=== PATIENT | female | born 1965 | race American Indian/Alaskan Native ===

== ENCOUNTER 2017-02-14 22:36 | Inpatient (IN) | payer MEDICAID ==
--- NOTE | 2017-02-14 22:54 | Emergency Department Report ---
ED General Adult HPI - General Chief complaint: Neuro Symptoms/Deficit Stated complaint: POSS CVA Time Seen by Provider: 02/14/17 22:50 Source: patient, RN notes reviewed, old records reviewed Mode of arrival: Ambulatory Limitations: Physical Limitation - History of Present Illness Initial comments: This is a 51-year-old female. She is previously unknown to me. Past medical history includes bipolar disorder, seizure disorder, left knee effusion, possible stroke in 1997, lupus. Patient is brought to the hospital by EMS for possible stroke. As per EMS verbal report, patient last known normal at 9:50 PM on 02/14/2017. EMS verbally reported that the patient's symptoms were a fascia, and left-sided weakness. The patient was initially somewhat dysarthric, and thought that her symptoms started at 9:50 PM, but was not certain. She also complained of headache, chest pressure, and total body pain. The patient further indicated that she had chronic left lower extremity limited range of motion and pain secondary to multiple surgeries. Of note, patient had a similar presentation in 2013, where she was admitted for possible stroke. At that time, she had an MRI which was negative, MRA which was negative, and an unremarkable echocardiogram. She was further seen by consult to neurology at that time, and as per her discharge summary "it was felt that her symptoms could be related to transient ischemic attack versus Wil's palsy or conversion disorder." The patient is unable to describe exacerbating or relieving factors. -: Gradual Location: left Quality: aching Consistency: constant Improves with: none Worsens with: none Associated Symptoms: confusion, chest pain, headaches, malaise, weakness - Related Data Home Medications Medication Instructions Recorded Confirmed Last Taken Promethazine [Phenergan TAB] 1 tab PO DAILY PRN 07/17/13 02/14/17 Unknown ALPRAZolam [Xanax TAB] 1 mg PO QID 09/14/13 02/14/17 05/05/14 Clopidogrel Bisulfate [Plavix] 75 mg PO DAILY 09/14/13 02/14/17 05/07/14 Cyanocobalamin [Vitamin B-12] 1,000 mcg IM QDAY 10/07/15 02/14/17 Unknown oxyCODONE [Roxicodone] 10 mg PO Q6HR PRN 10/07/15 02/14/17 Unknown traMADol [Ultram] 50 mg PO Q6HR PRN 10/07/15 02/14/17 Unknown Previous Rx's Medication Instructions Recorded Last Taken Type ALBUTEROL NEB's [Proventil 0.083% 2.5 mg INHALATION PRN #1 ml 06/22/14 Unknown Rx NEBS] fentaNYL 100 mg TRANSDERMA Q72HR #5 02/28/15 Unknown Rx patch.td72 Simvastatin [Zocor TAB] 20 mg PO QHS #30 tablet 04/02/15 Unknown Rx amLODIPine [Norvasc] 10 mg PO DAILY #30 tablet 04/02/15 Unknown Rx carBAMazepine [TEGretol] 100 mg PO Q8H #90 tab.chew 04/02/15 Unknown Rx oxyCODONE /ACETAMINOPHEN [Percocet 1 tab PO Q6HR PRN #7 tablet 10/07/15 Unknown Rx 5/325] Butalb/Acetamin/Caff 50-325-40 2 tab PO Q8HR PRN #20 tablet 02/25/16 Unknown Rx [Fioricet] Clopidogrel Bisulfate [Plavix] 75 mg PO QDAY #30 tablet 03/06/16 Unknown Rx Hydrochlorothiazide [HCTZ] 10 mg PO DAILY #30 capsule 03/06/16 Unknown Rx levETIRAcetam [Keppra TAB] 500 mg PO BID #60 tablet 03/06/16 Unknown Rx traMADol [Ultram] 50 mg PO Q4HR PRN #10 tablet 05/27/16 Unknown Rx Allergies Allergy/AdvReac Type Severity Reaction Status Date / Time atorvastatin calcium Allergy Unknown Verified 09/14/13 17:47 [From Lipitor] aspirin AdvReac Unknown Verified 02/26/14 13:53 ED Review of Systems ROS: Stated complaint: POSS CVA Other details as noted in HPI Constitutional: malaise, weakness Eyes: denies: vision change ENT: denies: epistaxis Respiratory: see HPI Cardiovascular: chest pain Gastrointestinal: as per HPI Genitourinary: as per HPI Musculoskeletal: arthralgia, myalgia Skin: denies: lesions Neurological: headache, weakness, numbness, paresthesias, confusion Psychiatric: anxiety ED Past Medical Hx - Past Medical History Previous Medical History?: Yes Hx Hypertension: Yes Hx 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) Hx Heart Attack/AMI: Yes Hx Congestive Heart Failure: Yes (11/2014) Hx GERD: Yes Hx Seizures: Yes Hx Asthma: No Hx COPD: No Additional medical history: Cardiac arrest 4-5 times during surgery 2006, TIA's , Ca L knee,Irregular heart beat - Surgical History Past Surgical History?: Yes Additional Surgical History: 30 surgeries to left lower extremity, hysterectomy, CS - Social History Smoking Status: Never Smoker - Medications Home Medications: Home Medications Medication Instructions Recorded Confirmed Last Taken Type Promethazine [Phenergan TAB] 1 tab PO DAILY PRN 07/17/13 02/14/17 Unknown History ALPRAZolam [Xanax TAB] 1 mg PO QID 09/14/13 02/14/17 05/05/14 History Clopidogrel Bisulfate [Plavix] 75 mg PO DAILY 09/14/13 02/14/17 05/07/14 History ALBUTEROL NEB's [Proventil 0.083% 2.5 mg INHALATION PRN #1 ml 06/22/14 02/14/17 Unknown Rx NEBS] fentaNYL 100 mg TRANSDERMA Q72HR #5 02/28/15 02/14/17 Unknown Rx patch.td72 Simvastatin [Zocor TAB] 20 mg PO QHS #30 tablet 04/02/15 02/14/17 Unknown Rx amLODIPine [Norvasc] 10 mg PO DAILY #30 tablet 04/02/15 02/14/17 Unknown Rx carBAMazepine [TEGretol] 100 mg PO Q8H #90 tab.chew 04/02/15 02/14/17 Unknown Rx Cyanocobalamin [Vitamin B-12] 1,000 mcg IM QDAY 10/07/15 02/14/17 Unknown History oxyCODONE /ACETAMINOPHEN [Percocet 1 tab PO Q6HR PRN #7 tablet 10/07/15 Unknown Rx 5/325] oxyCODONE [Roxicodone] 10 mg PO Q6HR PRN 10/07/15 02/14/17 Unknown History traMADol [Ultram] 50 mg PO Q6HR PRN 10/07/15 02/14/17 Unknown History Butalb/Acetamin/Caff 50-325-40 2 tab PO Q8HR PRN #20 tablet 02/25/16 02/14/17 Unknown Rx [Fioricet] Clopidogrel Bisulfate [Plavix] 75 mg PO QDAY #30 tablet 03/06/16 02/14/17 Unknown Rx Hydrochlorothiazide [HCTZ] 10 mg PO DAILY #30 capsule 03/06/16 02/14/17 Unknown Rx levETIRAcetam [Keppra TAB] 500 mg PO BID #60 tablet 03/06/16 02/14/17 Unknown Rx traMADol [Ultram] 50 mg PO Q4HR PRN #10 tablet 05/27/16 02/14/17 Unknown Rx ED Physical Exam - General Limitations: Physical Limitation General appearance: alert, in distress, obese - Head Head exam: Present: atraumatic, normocephalic - Eye Eye exam: Present: normal appearance, EOMI. Absent: nystagmus - ENT ENT exam: Present: normal exam, normal orophraynx, mucous membranes moist, normal external ear exam - Neck Neck exam: Present: normal inspection, full ROM. Absent: tenderness, meningismus - Respiratory Respiratory exam: Present: normal lung sounds bilaterally. Absent: respiratory distress, wheezes, rales, rhonchi, stridor, chest wall tenderness, accessory muscle use, decreased breath sounds, prolonged expiratory - Cardiovascular Cardiovascular Exam: Present: regular rate, normal rhythm, normal heart sounds. Absent: bradycardia, tachycardia, irregular rhythm, systolic murmur, diastolic murmur, rubs, gallop - GI/Abdominal GI/Abdominal exam: Present: soft, normal bowel sounds. Absent: distended, tenderness, guarding, rebound, rigid, pulsatile mass - Extremities Exam Extremities exam: Present: normal inspection, full ROM, normal capillary refill. Absent: tenderness, pedal edema, joint swelling, calf tenderness - Back Exam Back exam: Present: normal inspection, full ROM. Absent: tenderness, CVA tenderness (R), CVA tenderness (L), muscle spasm, paraspinal tenderness, vertebral tenderness - Neurological Exam Neurological exam: Present: alert, other (patient has 5 out of 5 strength in 4 extremities. Sensation is intact to light touch in 4 extremities. There is no obvious facial droop initially, then during her history, the patient seems to develop a facial droop that waxes and wanes. The patient's speech is initially incomprehensible, and then she speaks slowly, and has some initial stutters. Furthermore, the patient is noted to be moving her bilateral upper extremities without difficulty when asked to take off her shirt.) - Psychiatric Psychiatric exam: Present: normal affect, normal mood - Skin Skin exam: Present: warm, dry, intact, normal color. Absent: rash ED Course Vital Signs 02/14/17 23:37 Temperature 98.8 F Pulse Rate 82 Respiratory 16 Rate Blood Pressure 145/83 [Left] O2 Sat by Pulse 96 Oximetry - Reevaluation(s) Reevaluation #1: 02/15/17 01:02 Differential diagnosis: Pneumonia, urinary tract infection, acute coronary syndrome, stroke, transient ischemic attack, conversion disorder, wil paralysis Assessment and plan: 51-year-old female with reported history of a facial and left-sided weakness. When I evaluate the patient, her left-sided weakness is not obviously appreciable, and she is able to talk to myself and staff members, as well as consulting neurology. At this point in time, the patient does not have an appreciable stroke scale deficits, and she is not appropriate for TPA. The patient is seen and evaluated by the consulting neurology specialist, Dr. Madhu Stern, who independently agrees with the patient is not suitable for TPA. The patient is currently sleeping comfortably with no acute distress. Neurology did recommend a psychiatric consult which has been ordered, they also recommended an MR which can be performed in the morning, and the patient will be given Plavix. She is not homicidal or suicidal and is not required 1013 at this time, and the case is discussed with the Hospital physician, Dr. Pablo, who graciously accepts the patient to her service. ED Medical Decision Making - Lab Data Result diagrams: 02/14/17 22:35 02/14/17 22:35 Vital Signs 02/14/17 23:37 Temperature 98.8 F Pulse Rate 82 Respiratory 16 Rate Blood Pressure 145/83 [Left] O2 Sat by Pulse 96 Oximetry Lab Results 02/14/17 02/14/17 02/14/17 Range/Units 22:35 22:35 22:35 WBC 12.1 H (4.5-11.0) K/mm3 RBC 4.52 (3.65-5.03) M/mm3 Hgb 13.1 (10.1-14.3) gm/dl Hct 39.8 (30.3-42.9) % MCV 88 (79-97) fl MCH 29 (28-32) pg MCHC 33 (30-34) % RDW 15.1 (13.2-15.2) % Plt Count 207 (140-440) K/mm3 Lymph % (Auto) 19.7 (13.4-35.0) % Clarke % (Auto) 4.6 (0.0-7.3) % Eos % (Auto) 6.6 H (0.0-4.3) % Baso % (Auto) 0.2 (0.0-1.8) % Lymph # 2.4 (1.2-5.4) K/mm3 Clarke # 0.6 (0.0-0.8) K/mm3 Eos # 0.8 H (0.0-0.4) K/mm3 Baso # 0.0 (0.0-0.1) K/mm3 Seg Neutrophils % 68.9 (40.0-70.0) % Seg Neutrophils # 8.4 H (1.8-7.7) K/mm3 PT 12.9 (12.2-14.9) Sec. INR 0.98 (0.87-1.13) APTT 27.5 (24.2-36.6) Sec. Thrombin Time (15.1-19.6) Sec. Sodium 144 (137-145) mmol/L Potassium 3.4 L (3.6-5.0) mmol/L Chloride 101.3 (98-107) mmol/L Carbon Dioxide 27 (22-30) mmol/L Anion Gap 19 mmol/L BUN 20 H (7-17) mg/dL Creatinine 0.9 (0.7-1.2) mg/dL Estimated GFR > 60 ml/min BUN/Creatinine Ratio 22.22 % Glucose 163 H (65-100) mg/dL POC Glucose (70-105) Calcium 9.6 (8.4-10.2) mg/dL Troponin T < 0.010 (0.00-0.029) ng/mL 02/14/17 02/14/17 Range/Units 22:35 23:05 WBC (4.5-11.0) K/mm3 RBC (3.65-5.03) M/mm3 Hgb (10.1-14.3) gm/dl Hct (30.3-42.9) % MCV (79-97) fl MCH (28-32) pg MCHC (30-34) % RDW (13.2-15.2) % Plt Count (140-440) K/mm3 Lymph % (Auto) (13.4-35.0) % Clarke % (Auto) (0.0-7.3) % Eos % (Auto) (0.0-4.3) % Baso % (Auto) (0.0-1.8) % Lymph # (1.2-5.4) K/mm3 Clarke # (0.0-0.8) K/mm3 Eos # (0.0-0.4) K/mm3 Baso # (0.0-0.1) K/mm3 Seg Neutrophils % (40.0-70.0) % Seg Neutrophils # (1.8-7.7) K/mm3 PT (12.2-14.9) Sec. INR (0.87-1.13) APTT (24.2-36.6) Sec. Thrombin Time 15.7 (15.1-19.6) Sec. Sodium (137-145) mmol/L Potassium (3.6-5.0) mmol/L Chloride (98-107) mmol/L Carbon Dioxide (22-30) mmol/L Anion Gap mmol/L BUN (7-17) mg/dL Creatinine (0.7-1.2) mg/dL Estimated GFR ml/min BUN/Creatinine Ratio % Glucose (65-100) mg/dL POC Glucose 145 H (70-105) Calcium (8.4-10.2) mg/dL Troponin T (0.00-0.029) ng/mL - EKG Data -: EKG Interpreted by Me EKG shows normal: sinus rhythm Rate: normal - EKG Data 02/15/17 01:04 normal sinus, 94 bpm, normal axis, QTC 450 ms, borderline left ventricular hypertrophy, poor R-wave progression, but morphologically consistent with stemi - Radiology Data Radiology results: report reviewed interpreted by me: X-ray the chest is negative for acute disease Noncontrast CT scan of the brain is negative for acute disease Critical care attestation.: If time is entered above; I have spent that time in minutes in the direct care of this critically ill patient, excluding procedure time. ED Disposition Clinical Impression: Slurred speech Disposition: -09 OP ADMIT IP TO THIS HOSP Is pt being admited?: Yes Condition: Good
[2017-02-14 23:03] LABS: Basophils % (Auto) 0.2 % (0.0-1.8); Eosinophils % (Auto) 6.6 % (0.0-4.3); Hematocrit 39.8 % (30.3-42.9); Hemoglobin 13.1 gm/dl (10.1-14.3); Mean Corpuscular HGB Conc 33 % (30-34); Mean Corpuscular Hemoglobin 29 pg (28-32); Mean Corpuscular Volume 88 fl (79-97); Platelet Count 207 K/mm3 (140-440); Red Blood Count 4.52 M/mm3 (3.65-5.03); Red Cell Distribution Width 15.1 % (13.2-15.2); White Blood Count 12.1 K/mm3 (4.5-11.0)
--- NOTE | 2017-02-14 23:08 | Cat Scan Report ---
FINAL REPORT EXAM: CT HEAD/BRAIN WO CON HISTORY: neuro deficits \T\lt; 6hrs or sx present upon awakening TECHNIQUE: CT imaging acquired through the head without intravenous contrast. Transaxial reformations are provided. PRIORS: 02/24/2016 FINDINGS: The ventricles, cisterns and sulci are normal. No intraparenchymal or extra-axial mass, hemorrhage, or mass effect. Lockwood and white-matter differentiation is within normal limits. Normal spherical shape of the globes. Partially imaged mucosal thickening in the left maxillary sinus. No significant abnormality within the remaining imaged paranasal sinuses or mastoid air cells. No skull or facial fracture visualized. IMPRESSION: No acute intracranial abnormality. Notification initiated via [employer] learning support assistant immediately following the exam.
[2017-02-14 23:14] LABS: Anion Gap 19 mmol/L; BUN/Creatinine Ratio 22.22; Blood Urea Nitrogen 20 mg/dL (7-17); Calcium 9.6 mg/dL (8.4-10.2); Carbon Dioxide 27 mmol/L (22-30); Chloride 101.3 mmol/L (98-107); Glucose 163 mg/dL (65-100); Potassium 3.4 mmol/L (3.6-5.0); Sodium 144 mmol/L (137-145)
[2017-02-14 23:15] LABS: INR 0.98 (0.87-1.13); Partial Thromboplastin Time 27.5 Sec. (24.2-36.6)
[2017-02-15] MEDS ORDERED: PLAVIX PO ONE (01:05)
[2017-02-15 01:12] LABS: Bilirubin,Urine NEG (Negative); Blood,Urine SM (Negative); Ketones,Urine NEG (Negative); Leukocyte Esterase,Urine NEG (Negative); Mucus,Urine FEW /HPF; Nitrite,Urine NEG (Negative); Urobilinogen,Urine < 2.0 mg/dL (<2.0)
[2017-02-15] MEDS ORDERED: REGLAN PO PRN (02:55)
[2017-02-15] MEDS ORDERED: PROVENTIL IH PRN (02:55)
[2017-02-15] MEDS ORDERED: TYLENOL PO PRN (02:55)
[2017-02-15] MEDS ORDERED: DULCOLAX PR PRN (02:55)
[2017-02-15] MEDS ORDERED: SODIUM CHLORIDE FLUSH SYRINGE 10 ML IV PRN (02:55)
[2017-02-15] MEDS ORDERED: MILK OF MAGNESIA PO PRN (02:55)
[2017-02-15] MEDS ORDERED: ZOFRAN IV PRN (02:55)
--- NOTE | 2017-02-15 03:00 | History and Physical Report ---
History of Present Illness Date of examination: 02/15/17 History of present illness: 51-year-old woman with a history of lupus. Hypertension, coronary artery disease, GERD TIA, seizure comes emergency room for a aphasia and right-sided weakness, symptoms are not resolved Patient denies chest pain, palpitation, shortness of breath, cough, abdominal pain, hematochezia, dysuria, frequency, focal weakness, dysarthria, fever chills , polydipsia polyuria, hot or cold intolerance, easy bruisability, or rash or bleeding from mucosal membrane, rhinorrhea, epistaxis, earache, tinnitus, blurry vision, eye discharge, anxiety, depression. Other review of systems negative PAST SURGICAL HISTORY: Hysterectomy, SOCIAL HISTORY: Denies alcohol, tobacco, drugs FAMILY HISTORY: Hypertension Medications and Allergies Allergies Allergy/AdvReac Type Severity Reaction Status Date / Time atorvastatin calcium Allergy Unknown Verified 09/14/13 17:47 [From Lipitor] aspirin AdvReac Unknown Verified 02/26/14 13:53 Home Medications Medication Instructions Recorded Confirmed Last Taken Type Promethazine [Phenergan TAB] 1 tab PO DAILY PRN 07/17/13 02/14/17 Unknown History ALPRAZolam [Xanax TAB] 1 mg PO QID 09/14/13 02/14/17 05/05/14 History Clopidogrel Bisulfate [Plavix] 75 mg PO DAILY 09/14/13 02/14/17 05/07/14 History ALBUTEROL NEB's [Proventil 0.083% 2.5 mg INHALATION PRN #1 ml 06/22/14 02/14/17 Unknown Rx NEBS] fentaNYL 100 mg TRANSDERMA Q72HR #5 02/28/15 02/14/17 Unknown Rx patch.td72 Simvastatin [Zocor TAB] 20 mg PO QHS #30 tablet 04/02/15 02/14/17 Unknown Rx amLODIPine [Norvasc] 10 mg PO DAILY #30 tablet 04/02/15 02/14/17 Unknown Rx carBAMazepine [TEGretol] 100 mg PO Q8H #90 tab.chew 04/02/15 02/14/17 Unknown Rx Cyanocobalamin [Vitamin B-12] 1,000 mcg IM QDAY 10/07/15 02/14/17 Unknown History oxyCODONE /ACETAMINOPHEN [Percocet 1 tab PO Q6HR PRN #7 tablet 10/07/15 Unknown Rx 5/325] oxyCODONE [Roxicodone] 10 mg PO Q6HR PRN 10/07/15 02/14/17 Unknown History traMADol [Ultram] 50 mg PO Q6HR PRN 10/07/15 02/14/17 Unknown History Butalb/Acetamin/Caff 50-325-40 2 tab PO Q8HR PRN #20 tablet 02/25/16 02/14/17 Unknown Rx [Fioricet] Clopidogrel Bisulfate [Plavix] 75 mg PO QDAY #30 tablet 03/06/16 02/14/17 Unknown Rx Hydrochlorothiazide [HCTZ] 10 mg PO DAILY #30 capsule 03/06/16 02/14/17 Unknown Rx levETIRAcetam [Keppra TAB] 500 mg PO BID #60 tablet 03/06/16 02/14/17 Unknown Rx traMADol [Ultram] 50 mg PO Q4HR PRN #10 tablet 05/27/16 02/14/17 Unknown Rx Exam - Physical Exam Narrative exam: Gen. appearance: Patient lying in bed, no apparent distress HEENT: Normocephalic, atraumatic, pupils equally round and reactive to light, extraocular movement intact, and no sclericterus,. No JVD or thyromegaly or nodule,neck supple, no carotid bruit ,mucous membranes moist, no exudate or erythema Heart: S1, S2, regular rate and rhythm Lungs: Clear to auscultation bilaterally, breathing comfortable Abdomen: Positive bowel sounds, nontender, nondistended, no organomegaly Extremity: No edema, cyanosis, clubbing Skin: No rash, nodules, warm, dry Neuro: Oriented 3, cranial nerves II-12 intact, speech is fluent, motor and sensory intact - Constitutional Vitals: Temp Pulse Resp BP Pulse Ox 98.8 F 82 16 145/83 96 02/14/17 23:37 02/14/17 23:37 02/14/17 23:37 02/14/17 23:37 02/14/17 23:37 Results - Labs CBC & Chem 7: 02/14/17 22:35 02/14/17 22:35 Labs: Abnormal lab results 02/14/17 02/14/17 02/14/17 Range/Units 22:35 22:35 23:05 WBC 12.1 H (4.5-11.0) K/mm3 Eos % (Auto) 6.6 H (0.0-4.3) % Eos # 0.8 H (0.0-0.4) K/mm3 Seg Neutrophils # 8.4 H (1.8-7.7) K/mm3 Potassium 3.4 L (3.6-5.0) mmol/L BUN 20 H (7-17) mg/dL Glucose 163 H (65-100) mg/dL POC Glucose 145 H (70-105) - Imaging and Cardiology CT Scan - head: report reviewed Assessment and Plan TIA Hypertension Coronary artery disease Lupus Seizure Admits medicine Obtain MRI of the head, carotid Doppler, echo and Do neurochecks, swallow screen Start Plavix,statin statin, ratio allergic, start DVT prophylaxis Continue appropriate outpatient medications IV hydralazine as needed for blood pressure control
[2017-02-15] MEDS ORDERED: TYLENOL ONE (03:40)
[2017-02-15] MEDS ORDERED: PERCOCET 5/325 PO ONE (04:06)
--- NOTE | 2017-02-15 07:42 | XRay Report ---
Single view chest: Compared to 02/25/16. History: Chest pressure. Findings: Borderline cardiomegaly. Trachea is midline. No consolidation, pneumothorax or pleural effusion. Impression: No acute cardiopulmonary findings.
--- NOTE | 2017-02-15 08:08 | Admit Criteria Form ---
Admission Criteria Documentation: NEUROLOGY GRG Clinical Indications for Admission to Inpatient Care (Place ' X' for any and all applicable criteria): Hospital admission is needed for appropriate care of the patient because of 1 or more of the following: [ ]I. Encephalitis [ ]II. Severe [employer] infections indicated by 1 or more of the following(1)(2)(3) : [ ]a) Intracranial abscess [ ]b) Spinal abscess or myelitis [ ]c) Tuberculous or other nonbacterial, nonviral [employer] infection(8) [ ]III. Vasculitis and 1 or more of the following(14)(15): []a) Altered mental status that is severe or persistent or other acute neurologic change []b) Psychosis []c) Seizure [ ]IV. Status epilepticus or repetitive seizures not controlled with emergent treatment [A] (7)(8) [ ]V. Altered mental status that is severe or persistent [ ]. Transient alteration in consciousness with high-risk etiology; examples include (12)(13): [ ]a) Cardiovascular source [ ]b) Cataplexy [ ]VII. Cerebral aneurysm requiring ANY ONE of the following(14): [ ]a) IV antihypertensives or vasoactive agents [ ]b) Sedation and analgesia for suspected leak [ ]c) Need for external ventricular drainage and cerebral perfusion pressure monitoring [ ]d) Emergent evaluation to determine need for surgical clipping or endovascular coiling by interventional radiology. If surgery is required ( Also use Craniotomy, Supratentorial, for Surgery of Bleeding Intracranial Aneurysm (for bleeding aneurysm) or Craniotomy, Supratentorial (for nonbleeding aneurysm) as appropriate. [ ]VIII. New-onset severe neurologic symptom requiring inpatient care indicated by ANY ONE of the following: [ ]a) Aphasia(15) [ ]b) Weakness (grade 3 or less) [ ]c) Paralysis (eg, hemiplegia) [ ]d) Spasticity(16) [ ]e) Dystonia [ ]e) Ataxia(17) [ ]f) Amnesia(18) [ ]g) Involuntary movements(19) [ ]h) Vertigo [ ] Visual loss [ ]i) Other severe neurologic finding (eg, papilledema, mass effect on imaging, myoclonus not treatable at alternative level of care (eg, observation care) [ ]IX. Guillain-Hopewell syndrome(20) [ ]X. Myasthenia gravis crisis or inpatient monitoring need as indicated by 1 or more of the following(21): [ ]a) Intensive treatment (eg, course of plasmapheresis) with inadequate outpatient situation to monitor patients status [ ]b) Inadequate airway protection [ ]c) Respiratory insufficiency requiring intubation or inpatient. monitoring [ ]d) Progressive dysphagia with failure to thrive [ ]XI. Multiple sclerosis or other acute demyelinating disease requiring inpatient care as indicated by 1 or more of the following (22)(23): [ ]a) Acute severe deterioration requiring inpatient treatment (eg, IV steroids, plasmapheresis, close observation) [ ]b) Acute complication requiring inpatient care (eg, sepsis, severe decubitus, aspiration) [ ]XII.Parkinson disease requiring inpatient care (Also use Optimal Recovery Care Criteria or General Recovery Criteria as appropriate) indicated by 1 or more of the following(25): [ ]a) Infection (eg, aspiration pneumonia) not treatable at alternative level of care [ ]b Dehydration that is severe or persistent [ ]c) Life-threatening agitation or psychotic behavior not treatable on emergency, observation care, or alternative level (eg, residential) basis [ ]d) Severe medication withdrawal effects (eg, freezing, neuroleptic malignant syndrome) not responsive to emergency and observation care treatment ( as appropriate) [ ]e) Other severe manifestation not treatable at alternative level of care [ ]XII. Amyotrophic lateral sclerosis with inpatient care needs as indicated by ANY ONE of the following(26): [ ]a) Acute complications (eg, aspiration pneumonia, sepsis ) requiring inpatient care ( see other optimal Recovery Guideline as appropriate) [ ]b) Dehydration that is severe persistent AND artificial support desired [ ]c) Inadequate airway protection AND artificial support desired [ ]d) Severe ventilatory insufficiency AND artificial support desired [ ]XIII. Myasthenia gravis crisis or inpatient monitoring need as indicated by 1 or more of the following(21): [] a) Inadequate airway protection []b) Respiratory insufficiency requiring intubation or inpatient monitoring []c) Progressive dysphagia with failure to thrive []d) Intensive treatment (e.g., course of plasmapheresis) with inadequate outpatient situation to monitor patients status [ ]XIV. Multiple sclerosis or other acute demyelinating disease requiring inpatient care indicated by 1 or more of the following[C](36)(43)(44)(45)(46): []a) Acute severe deterioration requiring inpatient treatment (eg, IV steroids, plasmapheresis, close observation) []b) Acute complication requiring inpatient care (eg, sepsis, severe decubitus, aspiration) [ ]XV. Intracranial hypertension (e.g., pseudotumor cerebri) requiring inpatient care (e.g., acute visual loss, inadequate oral intake) (47)(48)(49) [ ]XVI. Parkinson disease requiring inpatient care (Also use Optimal Recovery Care Criteria or General Recovery Criteria as appropriate) indicated by 1 or more of the following(25): [] a) Infection (e.g., aspiration pneumonia) not treatable at alternative level of care []b) Volume depletion not responsive to emergency and observation care treatment (as appropriate) []c) Life-threatening agitation or psychotic behavior not treatable on emergency, observation care, or alternative level (e.g., residential) basis []d) Severe medication withdrawal effects (e.g., freezing, neuroleptic malignant syndrome) not responsive to emergency and observation care treatment (as appropriate) []e) Other severe manifestation not treatable at alternative level of care [ ]XVII. Amyotrophic lateral sclerosis with inpatient care needs as indicated by1 or more of the following(42): []a) Acute complications (eg, aspiration pneumonia, sepsis) requiring inpatient care (see other Optimal Recovery Guideline or General Recovery Guideline as appropriate) []b) Dehydration that is severe or persistent AND artificial support desired []c) Inadequate airway protection AND artificial support desired []d) Severe ventilatory insufficiency AND artificial support desired [ ]XVIII. Severe myopathy, neuropathy, or other neuromuscular disease indicated by 1 or more of the following(42)(52)(53)(54): []a ) New-onset severe diffuse weakness (eg, strength 3/5 or less) []b) Severe dysphagia []c) Dyspnea at rest or with minimal exertion (new) []d) Inadequate airway protection []e) Inadequate ventilation indicated by 1 or more of the following : i) Partial pressure of carbon dioxide greater than 44 mm Hg ( 5.9 kPa) (new) ii) Reduced peak expiratory flow rate (new) iii) Vital capacity less than 50% of predicted (less than 15 mL/kg) iv) Peak inspiratory force less negative than -30 cm H2O (- 2942 Pa) [ ]XVII.Complications of congenital or degenerative disease (eg, infection, seizures, dehydration, injury) not responsive to emergency and observation care treatment (as appropriate ) [C](16)(29)(30) [ ]XVIII.Suspected or confirmed nerve or muscle toxic injury, including ANY ONE of the following: [ ]a) Rhabdomyolysis(31) i) Acute renal failure ii) Dehydration that is severe or persistent iii) Altered mental status that is severe or persistent iv) Electrolyte abnormality that remains after emergency or observation level care ( as appropriate) [ ]b) Botulism(32) [ ]c) Other severe toxin-induced sign or symptom [ ]XIX. Neurologic trauma requiring inpatient treatment (medical) indicated by ANY ONE of the following(33)(34): [ ]a) Vital signs or neurologic signs more frequently than every 4 hours [ ]b) Hyperosmolar therapy [ ]c) Respiratory monitoring [ ]d) Intracranial pressure monitoring and treatment [ ]e) Stabilization and immobilization device placement (eg, braces, body jacket) [ ]f) Intubation & mechanical ventilation for airway protection or therapeutic hyperventilation [ ]g) Other treatment or monitoring needed that requires inpatient level of care [ ]XX.Complications of neurologic devices (eg, ventricular shunt, neurostimulator) requiring 1 or more of the following(35)(36): [ ]a) IV antibiotics with monitoring while awaiting culture results [ ]b) Monitoring for hydrocephalus [ X]XXI. Neurology condition symptom, or finding for which emergency and observation care have failed or are not considered appropriate. See General Criteria: Observation Care ISC, General Admission Criteria GRG, or Pediatric General Admission Criteria GRG guideline as appropriate. The original [facility] [employer] content created by [employer] [facility] has been revised. The portions of the content which have been revised are identified through the use of italic text or in bold, and [facility] has neither reviewed nor approved the modified material. All other unmodified content is copyright [facility] Please see references footnoted in the original [facility] edition 2016 Admission Criteria Met: Yes
[2017-02-15] MEDS: PLAVIX PO SCH (11:20)
--- NOTE | 2017-02-15 11:22 | Progress Note ---
Assessment and Plan Assessment and plan: Admitted today by Dr. Vanessa Pablo Patient is a 51-year-old woman with a history of chronic pain syndrome on fentanyl patch, lupus, coronary artery disease, GERD, dyslipidemia, hypertension , seizure disorder and bone cancer s/p 30 surgeries resulting in no left patella who presents with expressive dysarthria and weakness that started 2149 ( it appears she presented out side the window for TPA, see ED documentation pls) . CT of the head without contrast reported as no acute findings, white blood cell count was 12.1 with negative urinalysis/uti and chest x-ray showed no acute findings. Here for stroke workup. Patient asking for oxycodone. -Acute ischemic stroke: Carotid ultrasound unremarkable, echocardiogram and MRI of the brain pending, treat with aspirin and statins check a LDL -Hypokalemia: Replace -BMI 50.2, morbid obesity: Counseling Lifestyle modifications -Leukocytosis most likely reactive: Continue to monitor -Hyperglycemia: Check A1c History Interval history: Patient seen and examined. Follow up on slurred speech and left-sided weakness. Overnight uneventful. No cp, sob, n/v or severe headaches. Imaging, old records, testing, labs, nursing notes reviewed. 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 and a long surgical scar from 30th surgery from bone cancer NEURO: CN 2-12 GROSSLY INTACT except expressive dysarthria, left-sided weakness strength 4 out of 5 PSY: CALM - Constitutional Vitals: Temp Pulse Resp BP Pulse Ox 97.6 F 67 20 142/73 95 02/15/17 08:30 02/15/17 08:30 02/15/17 08:30 02/15/17 08:30 02/15/17 08:30 Results - Labs CBC & Chem 7: 02/14/17 22:35 02/14/17 22:35 Labs: Laboratory Last Values WBC 12.1 K/mm3 (4.5-11.0) H 02/14/17 22:35 RBC 4.52 M/mm3 (3.65-5.03) 02/14/17 22:35 Hgb 13.1 gm/dl (10.1-14.3) 02/14/17 22:35 Hct 39.8 % (30.3-42.9) 02/14/17 22:35 MCV 88 fl (79-97) 02/14/17 22:35 MCH 29 pg (28-32) 02/14/17 22:35 MCHC 33 % (30-34) 02/14/17 22:35 RDW 15.1 % (13.2-15.2) 02/14/17 22:35 Plt Count 207 K/mm3 (140-440) 02/14/17 22:35 Lymph % (Auto) 19.7 % (13.4-35.0) 02/14/17 22:35 [place] % (Auto) 4.6 % (0.0-7.3) 02/14/17 22:35 Eos % (Auto) 6.6 % (0.0-4.3) H 02/14/17 22:35 Baso % (Auto) 0.2 % (0.0-1.8) 02/14/17 22:35 Lymph # 2.4 K/mm3 (1.2-5.4) 02/14/17 22:35 [place] # 0.6 K/mm3 (0.0-0.8) 02/14/17 22:35 Eos # 0.8 K/mm3 (0.0-0.4) H 02/14/17 22:35 Baso # 0.0 K/mm3 (0.0-0.1) 02/14/17 22:35 Seg Neutrophils % 68.9 % (40.0-70.0) 02/14/17 22:35 Seg Neutrophils # 8.4 K/mm3 (1.8-7.7) H 02/14/17 22:35 PT 12.9 Sec. (12.2-14.9) 02/14/17 22:35 INR 0.98 (0.87-1.13) 02/14/17 22:35 APTT 27.5 Sec. (24.2-36.6) 02/14/17 22:35 Thrombin Time 15.7 Sec. (15.1-19.6) 02/14/17 22:35 Sodium 144 mmol/L (137-145) 02/14/17 22:35 Potassium 3.4 mmol/L (3.6-5.0) L 02/14/17 22:35 Chloride 101.3 mmol/L (98-107) 02/14/17 22:35 Carbon Dioxide 27 mmol/L (22-30) 02/14/17 22:35 Anion Gap 19 mmol/L 02/14/17 22:35 BUN 20 mg/dL (7-17) H 02/14/17 22:35 Creatinine 0.9 mg/dL (0.7-1.2) 02/14/17 22:35 Estimated GFR > 60 ml/min 02/14/17 22:35 BUN/Creatinine Ratio 22.22 % 02/14/17 22:35 Glucose 163 mg/dL (65-100) H 02/14/17 22:35 POC Glucose 145 (70-105) H 02/14/17 23:05 Calcium 9.6 mg/dL (8.4-10.2) 02/14/17 22:35 Troponin T < 0.010 ng/mL (0.00-0.029) 02/14/17 22:35 Urine Color Yellow (Yellow) 02/15/17 00:39 Urine Turbidity Clear (Clear) 02/15/17 00:39 Urine pH 5.0 (5.0-7.0) 02/15/17 00:39 Ur Specific [place] 1.030 (1.003-1.030) 02/15/17 00:39 Urine Protein 30 mg/dl mg/dL (Negative) 02/15/17 00:39 Urine Glucose (UA) Neg mg/dL (Negative) 02/15/17 00:39 Urine Ketones Neg mg/dL (Negative) 02/15/17 00:39 Urine Blood Sm (Negative) 02/15/17 00:39 Urine Nitrite Neg (Negative) 02/15/17 00:39 Urine Bilirubin Neg (Negative) 02/15/17 00:39 Urine Urobilinogen < 2.0 mg/dL (<2.0) 02/15/17 00:39 Ur Leukocyte Esterase Neg (Negative) 02/15/17 00:39 Urine WBC (Auto) 1.0 /HPF (0.0-6.0) 02/15/17 00:39 Urine RBC (Auto) 3.0 /HPF (0.0-6.0) 02/15/17 00:39 U Epithel Cells (Auto) < 1.0 /HPF (0-13.0) 02/15/17 00:39 Hyaline Casts 1 /LPF 02/15/17 00:39 Urine Mucus Few /HPF 02/15/17 00:39
[2017-02-15] MEDS: ROXICODONE PO PRN ×2 (16:39→22:23)
[2017-02-15] MEDS: KEPPRA PO SCH (21:30)
[2017-02-15] MEDS: ZOCOR PO SCH (21:30)
[2017-02-15] MEDS: ATIVAN IV PRN (22:30)
[2017-02-16 05:31] LABS: Hematocrit 37.2 % (30.3-42.9); Hemoglobin 12.3 gm/dl (10.1-14.3); Mean Corpuscular HGB Conc 33 % (30-34); Mean Corpuscular Hemoglobin 29 pg (28-32); Mean Corpuscular Volume 87 fl (79-97); Platelet Count 174 K/mm3 (140-440); Red Blood Count 4.26 M/mm3 (3.65-5.03); Red Cell Distribution Width 14.8 % (13.2-15.2); White Blood Count 8.6 K/mm3 (4.5-11.0)
[2017-02-16 05:55] LABS: Anion Gap 17 mmol/L; BUN/Creatinine Ratio 18.88; Blood Urea Nitrogen 17 mg/dL (7-17); Calcium 8.9 mg/dL (8.4-10.2); Carbon Dioxide 28 mmol/L (22-30); Chloride 101.4 mmol/L (98-107); Cholesterol 189 mg/dL (50-199); Glucose 151 mg/dL (65-100); HDL Cholesterol 38 mg/dL (40-59); LDL Cholesterol,Direct 106 mg/dL (50-130); Potassium 3.6 mmol/L (3.6-5.0); Sodium 143 mmol/L (137-145); Triglycerides 228 mg/dL (2-149)
[2017-02-16] MEDS: NORVASC PO SCH (09:44)
[2017-02-16] MEDS: KEPPRA PO SCH ×3 (09:44→22:17)
[2017-02-16] MEDS: PLAVIX PO SCH (09:44)
[2017-02-16] MEDS: ROXICODONE PO PRN ×3 (10:47→22:17)
--- NOTE | 2017-02-16 12:41 | Consultation ---
History of Present Illness - Reason for Consult Consult date: 02/16/17 possible stroke - History of Present Illness 51yo BF seen uin the ED of [facility] yesterday for possible stroke the CT was negative I did note she was on prior plavix therapy the teleneurology consult did not suggest that tPA be used PMH of multiple risk factotrs Lupus - age- prior vascular disease- cancer of the left less blood dyscrasia- severe pain and seizures she teels me the seizures occur when her pain is severe or she has headaches was also " told" she has cancer of the left leg exam deformed lweft and right knees alert good speech Cii-CXII intact 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 Seizure disorder 2. Cancer 3 Cancer related pain 4. Lupus there is old hx of pot stroke I do not find evidence of stroke at this time plan EEG Medications and Allergies Allergies Allergy/AdvReac Type Severity Reaction Status Date / Time atorvastatin calcium Allergy Unknown Verified 09/14/13 17:47 [From Lipitor] aspirin AdvReac Unknown Verified 02/26/14 13:53 Home Medications Medication Instructions Recorded Confirmed Last Taken Type Promethazine [Phenergan TAB] 1 tab PO DAILY PRN 07/17/13 02/14/17 Unknown History ALPRAZolam [Xanax TAB] 1 mg PO QID 09/14/13 02/14/17 05/05/14 History Clopidogrel Bisulfate [Plavix] 75 mg PO DAILY 09/14/13 02/14/17 05/07/14 History ALBUTEROL NEB's [Proventil 0.083% 2.5 mg INHALATION PRN #1 ml 06/22/14 02/14/17 Unknown Rx NEBS] fentaNYL 100 mg TRANSDERMA Q72HR #5 02/28/15 02/14/17 Unknown Rx patch.[id number] Simvastatin [Zocor TAB] 20 mg PO QHS #30 tablet 04/02/15 02/14/17 Unknown Rx amLODIPine [Norvasc] 10 mg PO DAILY #30 tablet 04/02/15 02/14/17 Unknown Rx carBAMazepine [TEGretol] 100 mg PO Q8H #90 tab.chew 04/02/15 02/14/17 Unknown Rx Cyanocobalamin [Vitamin B-12] 1,000 mcg IM QDAY 10/07/15 02/14/17 Unknown History oxyCODONE /ACETAMINOPHEN [Percocet 1 tab PO Q6HR PRN #7 tablet 10/07/15 Unknown Rx 5/325] oxyCODONE [Roxicodone] 10 mg PO Q6HR PRN 10/07/15 02/14/17 Unknown History traMADol [Ultram] 50 mg PO Q6HR PRN 10/07/15 02/14/17 Unknown History Butalb/Acetamin/Caff 50-325-40 2 tab PO Q8HR PRN #20 tablet 02/25/16 02/14/17 Unknown Rx [Fioricet] Clopidogrel Bisulfate [Plavix] 75 mg PO QDAY #30 tablet 03/06/16 02/14/17 Unknown Rx Hydrochlorothiazide [HCTZ] 10 mg PO DAILY #30 capsule 03/06/16 02/14/17 Unknown Rx levETIRAcetam [Keppra TAB] 500 mg PO BID #60 tablet 03/06/16 02/14/17 Unknown Rx traMADol [Ultram] 50 mg PO Q4HR PRN #10 tablet 05/27/16 02/14/17 Unknown Rx Active Meds: Active Medications Acetaminophen (Tylenol) 650 mg PO Q4H PRN PRN Reason: Pain, Mild (1-3) Albuterol (Proventil) 2.5 mg IH Q3HRT PRN PRN Reason: Shortness Of Breath Amlodipine Besylate (Norvasc) 10 mg PO DAILY [facility] Last Admin: 02/16/17 09:44 Dose: 10 mg Bisacodyl (Dulcolax) 10 mg DE QDAY PRN PRN Reason: Constipation Carbamazepine (Tegretol) 100 mg PO Q8H [facility] Last Admin: 02/16/17 00:45 Dose: 100 mg Clopidogrel Bisulfate (Plavix) 75 mg PO QDAY [facility] Last Admin: 02/16/17 09:44 Dose: 75 mg Levetiracetam (Keppra) 500 mg PO BID [facility] Last Admin: 02/16/17 09:44 Dose: 500 mg Lorazepam (Ativan) 1 mg IV Q4H PRN PRN Reason: Seizures Last Admin: 02/15/17 22:30 Dose: 1 mg Magnesium Hydroxide (Milk Of Magnesia) 30 ml PO Q4H PRN PRN Reason: Constipation Metoclopramide HCl (Reglan) 10 mg PO Q6H PRN PRN Reason: Nausea And Vomiting Ondansetron HCl (Zofran) 4 mg IV Q8H PRN PRN Reason: N/V unrelieved by Reglan Oxycodone HCl (Roxicodone) 10 mg PO Q6HR PRN PRN Reason: Pain Last Admin: 02/16/17 10:47 Dose: 10 mg Simvastatin (Zocor) 20 mg PO QHS [facility] Last Admin: 02/15/17 21:30 Dose: 20 mg Sodium Chloride (Sodium Chloride Flush Syringe 10 Ml) 10 ml IV PRN PRN PRN Reason: LINE FLUSH Exam - Constitutional Vitals: Temp Pulse Resp BP Pulse Ox 98.3 F 64 16 139/65 98 02/16/17 10:05 02/16/17 10:05 02/16/17 10:05 02/16/17 10:05 02/16/17 10:05 Results - Labs CBC & Chem 7: 02/16/17 05:04 02/16/17 05:04 Labs: Abnormal lab results 02/15/17 02/16/17 Range/Units 11:38 05:04 Glucose 151 H (65-100) mg/dL Hemoglobin A1c 6.5 H (4-6) % Triglycerides 228 H (2-149) mg/dL HDL Cholesterol 38 L (40-59) mg/dL
--- NOTE | 2017-02-16 13:06 | Progress Note ---
Assessment and Plan Assessment and plan: Patient is a 51-year-old woman with a history of chronic pain syndrome on fentanyl patch, lupus, coronary artery disease, GERD, dyslipidemia, hypertension , seizure disorder and bone cancer s/p 30 surgeries resulting in no left patella who presents with expressive dysarthria and weakness that started 2150 on the day of admission (it appears she presented out side the window for TPA, see ED documentation pls). CT of the head without contrast reported as no acute findings, white blood cell count was 12.1 with negative urinalysis/uti and chest x-ray showed no acute findings. Here for stroke workup. Patient asking for oxycodone. Developed a seizure witnessed by nurse 02/15/2017. -Acute ischemic stroke: Carotid ultrasound unremarkable, MRI of the brain patient refused, treat with aspirin and statins check a LDL -Hypokalemia: Replace -BMI 50.2, morbid obesity: Counseling Lifestyle modifications -Leukocytosis most likely reactive: Continue to monitor -Hyperglycemia: Check A1c -Acute encephalopathy, poa, due to seizures -Patient refused the MRI brain because she was in pain and didnt want it: Counseling done on compliance -Status Epilepticus, poa s/p iv ativan, I increased her Keppra, the Neurologist , Dr. Al has evaulated and recommended EEG (I called him) which I ordered 01/17/17 2-D echo reported as Global left ventricular systolic function is normal , estimated EF is 55-60%, mild concentric left ventricular hypertrophy, trace MR Anticipate discharge tomorrow if no seizures overnight History Interval history: Patient seen and examined. Follow up on slurred speech and left-sided weakness. Overnight eventful, requiring iv Ativan for seizure. No cp, sob, n/v or severe headaches. Imaging, old records, testing, labs, nursing notes reviewed. 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 and a long surgical scar from 30th surgery from bone cancer NEURO: CN 2-12 GROSSLY INTACT except expressive dysarthria, left-sided weakness strength 4 out of 5 PSY: CALM - Constitutional Vitals: Temp Pulse Resp BP Pulse Ox 98.3 F 64 16 139/65 98 02/16/17 10:05 02/16/17 10:05 02/16/17 10:05 02/16/17 10:05 02/16/17 10:05 Results - Labs CBC & Chem 7: 02/16/17 05:04 02/16/17 05:04 Labs: Laboratory Last Values WBC 8.6 K/mm3 (4.5-11.0) 02/16/17 05:04 RBC 4.26 M/mm3 (3.65-5.03) 02/16/17 05:04 Hgb 12.3 gm/dl (10.1-14.3) 02/16/17 05:04 Hct 37.2 % (30.3-42.9) 02/16/17 05:04 MCV 87 fl (79-97) 02/16/17 05:04 MCH 29 pg (28-32) 02/16/17 05:04 MCHC 33 % (30-34) 02/16/17 05:04 RDW 14.8 % (13.2-15.2) 02/16/17 05:04 Plt Count 174 K/mm3 (140-440) 02/16/17 05:04 Lymph % (Auto) 19.7 % (13.4-35.0) 02/14/17 22:35 [place] % (Auto) 4.6 % (0.0-7.3) 02/14/17 22:35 Eos % (Auto) 6.6 % (0.0-4.3) H 02/14/17 22:35 Baso % (Auto) 0.2 % (0.0-1.8) 02/14/17 22:35 Lymph # 2.4 K/mm3 (1.2-5.4) 02/14/17 22:35 [place] # 0.6 K/mm3 (0.0-0.8) 02/14/17 22:35 Eos # 0.8 K/mm3 (0.0-0.4) H 02/14/17 22:35 Baso # 0.0 K/mm3 (0.0-0.1) 02/14/17 22:35 Seg Neutrophils % 68.9 % (40.0-70.0) 02/14/17 22:35 Seg Neutrophils # 8.4 K/mm3 (1.8-7.7) H 02/14/17 22:35 PT 12.9 Sec. (12.2-14.9) 02/14/17 22:35 INR 0.98 (0.87-1.13) 02/14/17 22:35 APTT 27.5 Sec. (24.2-36.6) 02/14/17 22:35 Thrombin Time 15.7 Sec. (15.1-19.6) 02/14/17 22:35 Sodium 143 mmol/L (137-145) 02/16/17 05:04 Potassium 3.6 mmol/L (3.6-5.0) 02/16/17 05:04 Chloride 101.4 mmol/L (98-107) 02/16/17 05:04 Carbon Dioxide 28 mmol/L (22-30) 02/16/17 05:04 Anion Gap 17 mmol/L 02/16/17 05:04 BUN 17 mg/dL (7-17) 02/16/17 05:04 Creatinine 0.9 mg/dL (0.7-1.2) 02/16/17 05:04 Estimated GFR > 60 ml/min 02/16/17 05:04 BUN/Creatinine Ratio 18.88 % 02/16/17 05:04 Glucose 151 mg/dL (65-100) H 02/16/17 05:04 POC Glucose 145 (70-105) H 02/14/17 23:05 Hemoglobin A1c 6.5 % (4-6) H 02/15/17 11:38 Calcium 8.9 mg/dL (8.4-10.2) 02/16/17 05:04 Troponin T < 0.010 ng/mL (0.00-0.029) 02/14/17 22:35 Triglycerides 228 mg/dL (2-149) H 02/16/17 05:04 Cholesterol 189 mg/dL (50-199) 02/16/17 05:04 LDL Cholesterol Direct 106 mg/dL (50-130) 02/16/17 05:04 HDL Cholesterol 38 mg/dL (40-59) L 02/16/17 05:04 Cholesterol/HDL Ratio 4.97 % 02/16/17 05:04 Urine Color Yellow (Yellow) 02/15/17 00:39 Urine Turbidity Clear (Clear) 02/15/17 00:39 Urine pH 5.0 (5.0-7.0) 02/15/17 00:39 Ur Specific [place] 1.030 (1.003-1.030) 02/15/17 00:39 Urine Protein 30 mg/dl mg/dL (Negative) 02/15/17 00:39 Urine Glucose (UA) Neg mg/dL (Negative) 02/15/17 00:39 Urine Ketones Neg mg/dL (Negative) 02/15/17 00:39 Urine Blood Sm (Negative) 02/15/17 00:39 Urine Nitrite Neg (Negative) 02/15/17 00:39 Urine Bilirubin Neg (Negative) 02/15/17 00:39 Urine Urobilinogen < 2.0 mg/dL (<2.0) 02/15/17 00:39 Ur Leukocyte Esterase Neg (Negative) 02/15/17 00:39 Urine WBC (Auto) 1.0 /HPF (0.0-6.0) 02/15/17 00:39 Urine RBC (Auto) 3.0 /HPF (0.0-6.0) 02/15/17 00:39 U Epithel Cells (Auto) < 1.0 /HPF (0-13.0) 02/15/17 00:39 Hyaline Casts 1 /LPF 02/15/17 00:39 Urine Mucus Few /HPF 02/15/17 00:39
[2017-02-16] MEDS: ATIVAN IV PRN ×2 (18:41→19:18)
[2017-02-16] MEDS: ZOCOR PO SCH (22:17)
[2017-02-17] MEDS: ROXICODONE PO PRN ×2 (05:03→11:42)
[2017-02-17 08:18] LABS: Hematocrit 36.1 % (30.3-42.9); Hemoglobin 11.8 gm/dl (10.1-14.3); Mean Corpuscular HGB Conc 33 % (30-34); Mean Corpuscular Hemoglobin 28 pg (28-32); Mean Corpuscular Volume 87 fl (79-97); Platelet Count 173 K/mm3 (140-440); Red Blood Count 4.18 M/mm3 (3.65-5.03); Red Cell Distribution Width 14.8 % (13.2-15.2); White Blood Count 8.5 K/mm3 (4.5-11.0)
[2017-02-17 08:23] LABS: Anion Gap 17 mmol/L; BUN/Creatinine Ratio 23.33; Blood Urea Nitrogen 14 mg/dL (7-17); Calcium 8.7 mg/dL (8.4-10.2); Carbon Dioxide 25 mmol/L (22-30); Glucose 120 mg/dL (65-100); Potassium 3.7 mmol/L (3.6-5.0); Sodium 142 mmol/L (137-145)
[2017-02-17] MEDS: NORVASC PO SCH (10:00)
[2017-02-17] MEDS: PLAVIX PO SCH (10:43)
[2017-02-17] MEDS: KEPPRA PO SCH (10:44)
[2017-02-17 12:19] VITALS: BP 125/88
--- NOTE | 2017-02-17 12:36 | Discharge Summary ---
Providers - Providers Date of Admission: 02/15/17 02:55 Date of discharge: 02/17/17 Attending physician: CHER PADILLA 02/15/17 15:41 Consult to Physician [CONS] Routine Consulting Provider: BENJAMIN AL Reason For Exam: intractable seizure Place consult to:: Servando CABELLO Notified:: a service Phone number called:: [phone] Was contact made?: Yes If yes, spoke with:: grey Time called:: 16:45 02/16/17 10:17 Physical Therapy Evaluation and Treat [CONS] Routine Comment: Reason For Exam: TIA/CVA Primary care physician: RECONC[facility] SPECIALIST Hospitalization Condition: Stable Hospital course: Patient is a 51-year-old woman with a history of chronic pain syndrome on fentanyl patch, lupus, coronary artery disease, GERD, dyslipidemia, hypertension , seizure disorder and bone cancer s/p 30 surgeries resulting in no left patella who presents with expressive dysarthria and weakness that started 2150 on the day of admission (it appears she presented out side the window for TPA, see ED documentation pls). CT of the head without contrast reported as no acute findings, white blood cell count was 12.1 with negative urinalysis/uti and chest x-ray showed no acute findings. Here for stroke workup. Patient asking for oxycodone. Developed a seizure witnessed by nurse 02/15/2017. -Acute ischemic stroke: Carotid ultrasound unremarkable, MRI of the brain patient refused, treat with aspirin and statins check a LDL -Hypokalemia: Replace -BMI 50.2, morbid obesity: Counseling Lifestyle modifications -Leukocytosis most likely reactive: Continue to monitor -Hyperglycemia: Checked A1c 6.5 -Acute encephalopathy, poa, due to seizures -Patient refused the MRI brain because she was in pain and didnt want it: Counseling done on compliance -Status Epilepticus, poa s/p iv ativan, I increased her Keppra, the Neurologist , Dr. Al has evaulated and recommended EEG (I called him) which I ordered, he will follow up 01/17/17 2-D echo reported as Global left ventricular systolic function is normal , estimated EF is 55-60%, mild concentric left ventricular hypertrophy, trace MR Anticipate discharge tomorrow if no seizures overnight==>no seizure overnight, she refused seizure medication tegretal, states she only takes keppra 1000mg once a day. Her main concern is getting script for oxycodone, she wants the 15mg dose. She needs all her medications refilled. Counselled on noncompliance Disposition: DC-01 TO HOME OR SELFCARE Time spent for discharge: 35 minutes Core Measure Documentation - Palliative Care Palliative Care/ Comfort Measures: Not Applicable - Core Measures Any of the following diagnoses?: none - VTE Discharge Requirements Deep Vein Thrombosis/Pulmonary Embolism Present on Admission: No Has pt received <5 days of overlap therapy or INR<2.0: No Anticoagulant overlap therapy prescribed at discharge: No Contraindication No Overlap Therapy order at DC: Not Indicated Exam - Physical Exam Narrative exam: GEN: Morbidly obese BMI 50.2, NAD, AWAKE, ALERT, ORIENTATED x 3 CVS: RRR, NORMAL S1S2 LUNGS/CHEST: CTA B, NORMAL CHEST EXPANSION B, GOOD AIR ENTRY B ABD: SOFT, NTND, GBS, NO REBOUND OR GUARDING EXT/SKIN: NO SIGNIFICANT EDEMA OR RASH MSK: Patient has no left knee and a long surgical scar from 30th surgery from bone cancer NEURO: CN 2-12 GROSSLY INTACT except expressive dysarthria, left-sided weakness strength 4 out of 5 PSY: CALM - Constitutional Vitals: Temp Pulse Resp BP Pulse Ox 98.1 F 64 20 125/88 98 02/17/17 12:18 02/17/17 12:18 02/17/17 12:18 02/17/17 12:18 02/17/17 12:18 Plan Activity: other (no strenous activites until cleared by PCP. ) Diet: low carbohydrate (because you are borderline diabetic mellitus) Special Instructions: record daily BP diary, record blood sugar diary Follow up with: PRIMARY CARE, [Primary Care Provider] - 3-5 Days BENJAMIN AL MD [Staff Physician] - 7 Days Prescriptions: Simvastatin [Zocor TAB] 20 mg PO QHS #30 tablet ALBUTEROL NEB's [Proventil 0.083% NEBS] 2.5 mg IH Q3HRT PRN #30 nebu PRN Reason: Shortness Of Breath amLODIPine [Norvasc] 10 mg PO DAILY #30 tablet Clopidogrel [Plavix] 75 mg PO QDAY #30 tablet levETIRAcetam [Keppra TAB] 1,000 mg PO BID #60 tablet Oxycodone HCl [Oxycodone HCl ER] 15 mg PO Q12H PRN #30 tab.er.12h PRN Reason: Pain , Severe (7-10)
--- NOTE | 2017-02-21 10:21 | Vascular Lab Report ---
CAROTID DUPLEX STUDY: RIGHT PSVEDV CCA PROX: [id number] CCA DIST: 6621 ICA PROX: 6220 ICA MID: 8734 ICA DIST:[id number] ECA: 45 VERT: 43 15 LEFT PSVEDV CCA PROX:[id number] CCA DIST: 6118 ICA PROX: 5917 ICA MID: 7923 ICA DIST: 7918 ECA: 34 VERT: 50 16 REASON FOR EXAM: Stroke. COMMENTS ON THE RIGHT: Doppler frequency analysis is consistent with 16 to 49 percent diameter reduction of the internal carotid artery. Minimal amount of plaque is seen. The common carotid artery is patent. The external carotid artery is patent. The vertebral artery has antegrade flow. COMMENTS ON THE LEFT: Doppler frequency analysis is consistent with 16 to 49 percent diameter reduction of the internal carotid artery. Minimal amount of plaque is seen. The common carotid artery is patent. The external carotid artery is patent. The vertebral artery has antegrade flow. IMPRESSION: Less than 50% diameter reduction in the internal carotid arteries bilaterally. Consider repeat carotid artery duplex in 12 months.
== END 2017-02-17 15:15 | disposition home or self-care (01) | DRG 64 ==
LOC: ED 22:36 → 4A 02-15 02:55
PROVIDERS: ADMIT Internal Medicine; ATTEND Internal Medicine
DX: I63.9 Cerebral infarction, unspecified (principal); G93.40 Encephalopathy, unspecified; I25.10 Atherosclerotic heart disease of native coronary artery without angina pectoris; M32.9 Systemic lupus erythematosus, unspecified; E66.01 Morbid (severe) obesity due to excess calories; F31.9 Bipolar disorder, unspecified; K21.9 Gastro-esophageal reflux disease without esophagitis; I11.0 Hypertensive heart disease with heart failure; I50.9 Heart failure, unspecified; E87.6 Hypokalemia; R73.9 Hyperglycemia, unspecified; C41.9 Malignant neoplasm of bone and articular cartilage, unspecified; G89.4 Chronic pain syndrome; G40.901 Epilepsy, unspecified, not intractable, with status epilepticus; Z68.43 Body mass index [BMI] 50.0-59.9, adult; Z88.6 Allergy status to analgesic agent; Z88.8 Allergy status to other drugs, medicaments and biological substances; Z90.710 Acquired absence of both cervix and uterus; Z82.49 Family history of ischemic heart disease and other diseases of the circulatory system; Z98.891 History of uterine scar from previous surgery; Z53.8 Procedure and treatment not carried out for other reasons
CPT/HCPCS: 36415; 70450; 71010; 80048; 80061; 81001; 82962; 83036; 84484; 85025; 85027; 85610; 85670; 85730; 93005; 93010; 93306; 93880; 95819; 99285; J2060

== ENCOUNTER 2017-05-07 20:50 | Emergency (ER) | payer MEDICAID ==
[2017-05-07 22:27] LABS: Basophils % (Auto) 0.6 % (0.0-1.8); Eosinophils % (Auto) 5.6 % (0.0-4.3); Hematocrit 39.2 % (30.3-42.9); Hemoglobin 12.7 gm/dl (10.1-14.3); Mean Corpuscular HGB Conc 32 % (30-34); Mean Corpuscular Hemoglobin 28 pg (28-32); Mean Corpuscular Volume 86 fl (79-97); Platelet Count 230 K/mm3 (140-440); Red Blood Count 4.54 M/mm3 (3.65-5.03); Red Cell Distribution Width 15.8 % (13.2-15.2); White Blood Count 11.4 K/mm3 (4.5-11.0)
[2017-05-07 22:42] LABS: Alanine Aminotransferase 24 units/L (7-56); Albumin 4.3 g/dL (3.9-5); Albumin/Globulin Ratio 1.4 %; Alkaline Phosphatase 66 units/L (35-129); Anion Gap 19 mmol/L; BUN/Creatinine Ratio 17.14; Blood Urea Nitrogen 12 mg/dL (7-17); Calcium 9.9 mg/dL (8.4-10.2); Carbon Dioxide 28 mmol/L (22-30); Glucose 137 mg/dL (65-100); Potassium 3.7 mmol/L (3.6-5.0); Sodium 144 mmol/L (137-145); Total Protein 7.3 g/dL (6.3-8.2)
[2017-05-08 03:49] LABS: Bilirubin,Urine NEG (Negative); Blood,Urine NEG (Negative); Ketones,Urine NEG (Negative); Leukocyte Esterase,Urine NEG (Negative); Mucus,Urine FEW /HPF; Nitrite,Urine NEG (Negative); Protein,Urine <15 mg/dL mg/dL (Negative); RBC,Urine < 1.0 /HPF (0.0-6.0); Urobilinogen,Urine < 2.0 mg/dL (<2.0); WBC,Urine < 1.0 /HPF (0.0-6.0)
[2017-05-08] MEDS ORDERED: MORPHINE IV ONE (07:26)
--- NOTE | 2017-05-08 07:35 | Emergency Department Report ---
HPI - General Chief Complaint: Extremity Problem,Nontraumatic Time Seen by Provider: 05/08/17 07:15 - HPI HPI: This is a 52-year-old -[place] female presents to the emergency department with complaint of a one-day history of bilateral lower extremity pain , worse on the left. The patient has a history of lupus but she also has a history of bone cancer in that left lower extremity. She has had many surgeries to the left leg secondary to the cancer and now has a fusion of the knee and she is unable to bend the knee at baseline now. She also has a past medical history of CHF, CVA with some left-sided deficit, coronary artery disease with CA, hypertension, irregular heartbeat. She has a primary care physician without currently remember their name. She says that she takes Roxicodone for her symptoms usually but is out of that medication. No recent travel or sick contacts at home. She denies any fever, chest pain, shortness of breath. ED Past Medical Hx - Past Medical History Hx Hypertension: Yes Hx 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) Hx Heart Attack/AMI: Yes Hx Congestive Heart Failure: Yes (11/2014) Hx Diabetes: No Hx GERD: Yes Hx Seizures: Yes Hx Asthma: No Hx COPD: No Additional medical history: Cardiac arrest 4-5 times during surgery 2006, TIA's , Ca L knee,Irregular heart beat, Lupus - Surgical History Additional Surgical History: 30 surgeries to left lower extremity, hysterectomy, CS - Social History Smoking Status: Current Every Day Smoker Substance Use Type: None - Medications Home Medications: Home Medications Medication Instructions Recorded Confirmed Last Taken Type Clopidogrel [Plavix] 75 mg PO QDAY #30 tablet 02/17/17 04/06/17 04/05/17 Rx amLODIPine [Norvasc] 10 mg PO DAILY #30 tablet 02/17/17 04/06/17 04/06/17 Rx ALPRAZolam [Xanax TAB] 1 mg PO QID PRN 04/06/17 04/06/17 04/06/17 History Hydrochlorothiazide [HCTZ] 25 mg PO QDAY 04/06/17 04/06/17 04/06/17 History Potassium Chloride [K-Dur] 10 meq PO BID 04/06/17 04/06/17 04/06/17 History Pregabalin [Lyrica] 75 mg PO BID 04/06/17 04/06/17 04/06/17 History Quetiapine Fumarate [Seroquel] 300 mg PO HS 04/06/17 04/06/17 04/05/17 History risperiDONE [RisperDAL] 4 mg PO BID 04/06/17 04/06/17 04/06/17 History Simvastatin [Zocor TAB] 40 mg PO QHS tablet 04/09/17 Unknown Rx lamoTRIgine [LaMICtal] 150 mg PO BID #60 tablet 04/09/17 Unknown Rx levETIRAcetam [Keppra TAB] 500 mg PO BID #60 tablet 04/09/17 Unknown Rx oxyCODONE /ACETAMINOPHEN [Percocet 1 tab PO Q6HR PRN #10 tablet 05/08/17 Unknown Rx 5/325] ED Review of Systems ROS: Stated complaint: SWELLIN IN L & R LEGS, LUPUS Other details as noted in HPI Comment: All other systems reviewed and negative Constitutional: denies: chills, fever Eyes: denies: eye pain, eye discharge, vision change ENT: denies: ear pain, throat pain Respiratory: denies: cough, shortness of breath, wheezing Cardiovascular: denies: chest pain, palpitations Gastrointestinal: denies: abdominal pain, nausea, diarrhea Genitourinary: denies: urgency, dysuria, discharge Musculoskeletal: arthralgia, myalgia Skin: denies: rash, lesions Neurological: denies: headache, weakness, paresthesias Physical Exam - Physical Exam Vital Signs: Vital Signs 05/07/17 05/08/17 05/08/17 21:59 04:31 06:39 Temperature 98 F 97.9 F 97.3 F L Pulse Rate 91 H 77 73 Respiratory 16 20 18 Rate Blood Pressure 130/95 139/73 Blood Pressure 147/88 [Left] O2 Sat by Pulse 97 100 100 Oximetry Physical Exam: GENERAL: The patient is well-developed well-nourished. HENT: Normocephalic. Atraumatic. Patient has moist mucous membranes. EYES: Extraocular motions are intact. Pupils equal reactive to light bilaterally. NECK: Supple. Trachea is midline. CHEST/LUNGS: Clear to auscultation. There is no respiratory distress noted. HEART/CARDIOVASCULAR: Regular. There is no tachycardia. There is no gallop rub or murmur. ABDOMEN: Abdomen is soft, nontender. Patient has normal bowel sounds. There is no abdominal distention. Morbidly obese habitus. SKIN: There is some mild nonpitting swelling of the bilateral lower extremity. NEURO: The patient is awake, alert, and oriented. The patient is cooperative. The patient has no focal neurologic deficits. The patient has normal speech and gait. MUSCULOSKELETAL: There is some tenderness to palpation to the bilateral lower extremities from the knees distally but the pain appears to be worse even without palpation. There is a chronic effusion of the left knee and therefore there is no flexion. ED Course Vital Signs 05/07/17 05/08/17 05/08/17 21:59 04:31 06:39 Temperature 98 F 97.9 F 97.3 F L Pulse Rate 91 H 77 73 Respiratory 16 20 18 Rate Blood Pressure 130/95 139/73 Blood Pressure 147/88 [Left] O2 Sat by Pulse 97 100 100 Oximetry ED Medical Decision Making - Lab Data Result diagrams: 05/07/17 22:10 05/07/17 22:10 - Radiology Data Radiology results: report reviewed Bilateral lower extremity venous Dopplers are negative for DVT. CT LOWER EXTREMITY RIGHT WITH CONTRAST CT LOWER EXTREMITY LEFT WITH CONTRAST HISTORY: Bilateral lower extremity pain, history of left lower extremity bone cancer. TECHNIQUE: Helical CT was obtained filling of the contrast from the knees to the ankles. Sagittal and coronal reformatted images. COMPARISON: No relevant comparison. FINDINGS: The visualized right lower extremity is unremarkable. There is normal bone mineralization. No evidence for fracture, periostitis, bone lesion or abnormal enhancement. Normal soft tissues. The visualized left lower extremity demonstrates previous surgical changes. There appears to have been an intramedullary jerri within the distal left femur and left tibia which has been removed. The tract of the jerri is still visualized. Bony fusion of the left knee joint is identified. The left patella and extensor complex have been surgically removed. There is no evidence for acute fracture, periostitis, bone lesion or abnormal enhancement. The soft tissues are unremarkable. IMPRESSION: Postsurgical changes in the left lower extremity as outlined above. No acute process, bone lesion or abnormal enhancement is appreciated on today's exam. - Medical Decision Making 52-year-old female presents with lower extremity pain with a history of lupus and a history of bone cancer. Vitals signs stable throughout her ED course. Labs are unremarkable. Bilateral lateral lower venous Dopplers are negative for DVT. Lower extremity CT with IV contrast was also done to rule out infection, malignancy, and it resulted basically has a negative examination. She was given a dose of pain medication. She was reevaluated multiple times about multiple hours and has remained stable. She will follow-up with her primary care physician and will return to the ER if any worsening of her symptoms or any acute distress. Critical Care Time: No Critical care attestation.: If time is entered above; I have spent that time in minutes in the direct care of this critically ill patient, excluding procedure time. ED Disposition Clinical Impression: Bilateral leg pain Lupus Qualifiers: Lupus erythematosus form: unspecified Qualified Code(s): L93.0 - Discoid lupus erythematosus Disposition: TO HOME OR SELFCARE Is pt being admited?: No Condition: Stable Instructions: Arthralgia (ED) Additional Instructions: Please follow-up with your primary care physician in the next 2 days. Return to the emergency Department with any worsening of your symptoms or any acute distress. You have been prescribed a medication that is sedating and therefore should not be taken prior to driving, working, and responsible for children and in no way should be mixed with alcohol of any quantity. Prescriptions: oxyCODONE /ACETAMINOPHEN [Percocet 5/325] 1 tab PO Q6HR PRN #10 tablet PRN Reason: Pain Referrals: PRIMARY CARE, [Primary Care Provider] - 3-5 Days Time of Disposition: 11:05
[2017-05-08] MEDS ORDERED: NACL ONE (07:49)
--- NOTE | 2017-05-08 10:32 | Cat Scan Report ---
CT LOWER EXTREMITY RIGHT WITH CONTRAST CT LOWER EXTREMITY LEFT WITH CONTRAST HISTORY: Bilateral lower extremity pain, history of left lower extremity bone cancer. TECHNIQUE: Helical CT was obtained filling of the contrast from the knees to the ankles. Sagittal and coronal reformatted images. COMPARISON: No relevant comparison. FINDINGS: The visualized right lower extremity is unremarkable. There is normal bone mineralization. No evidence for fracture, periostitis, bone lesion or abnormal enhancement. Normal soft tissues. The visualized left lower extremity demonstrates previous surgical changes. There appears to have been an intramedullary jerri within the distal left femur and left tibia which has been removed. The tract of the jerri is still visualized. Bony fusion of the left knee joint is identified. The left patella and extensor complex have been surgically removed. There is no evidence for acute fracture, periostitis, bone lesion or abnormal enhancement. The soft tissues are unremarkable. IMPRESSION: Postsurgical changes in the left lower extremity as outlined above. No acute process, bone lesion or abnormal enhancement is appreciated on today's exam.
[2017-05-08 10:47] VITALS: BP 160/88
--- NOTE | 2017-05-09 07:44 | Vascular Lab Report ---
LOWER EXTREMITY VENOUS DUPLEX: REASON FOR EXAM: Pain of the lower extremities. COMMENTS ON THE RIGHT: All veins visualized are freely compressible without evidence of internal echogenicity. Flow is spontaneous and phasic throughout. COMMENTS ON THE LEFT: All veins visualized are freely compressible without evidence of internal echogenicity. Flow is spontaneous and phasic throughout. IMPRESSION: No evidence of acute or chronic deep venous thrombosis in either lower extremity.
== END 2017-05-08 11:17 | disposition home or self-care (01) ==
LOC: ED 20:50
DX: L93.0 Discoid lupus erythematosus (principal); M79.605 Pain in left leg; M79.604 Pain in right leg; Z86.73 Personal history of transient ischemic attack (TIA), and cerebral infarction without residual deficits; I10 Essential (primary) hypertension; I50.9 Heart failure, unspecified; K21.9 Gastro-esophageal reflux disease without esophagitis; R53.1 Weakness; F17.200 Nicotine dependence, unspecified, uncomplicated
CPT/HCPCS: 36415; 73701; 80053; 81001; 82550; 85025; 93970; 96374; 99284; J2270; Q9967

== ENCOUNTER 2017-06-11 21:46 | Emergency (ER) | payer MEDICAID ==
[2017-06-11 22:11] VITALS: BP 142/82
[2017-06-11 22:46] LABS: Basophils % (Auto) 0.2 % (0.0-1.8); Hematocrit 40.3 % (30.3-42.9); Hemoglobin 13.7 gm/dl (10.1-14.3); Mean Corpuscular HGB Conc 34 % (30-34); Mean Corpuscular Hemoglobin 29 pg (28-32); Mean Corpuscular Volume 84 fl (79-97); Platelet Count 219 K/mm3 (140-440); Red Blood Count 4.79 M/mm3 (3.65-5.03); White Blood Count 13.2 K/mm3 (4.5-11.0)
[2017-06-11 22:59] LABS: Anion Gap 17 mmol/L; BUN/Creatinine Ratio 16; Blood Urea Nitrogen 16 mg/dL (7-17); Calcium 9.7 mg/dL (8.4-10.2); Carbon Dioxide 31 mmol/L (22-30); Chloride 96.3 mmol/L (98-107); Glucose 139 mg/dL (65-100); Potassium 3.7 mmol/L (3.6-5.0); Sodium 141 mmol/L (137-145)
== END 2017-06-11 22:35 | disposition left against medical advice (07) ==
LOC: ED 21:46
DX: R07.9 Chest pain, unspecified (principal); Z53.21 Procedure and treatment not carried out due to patient leaving prior to being seen by health care provider
CPT/HCPCS: 36415; 80048; 84484; 85025; 93005; 93010

== ENCOUNTER 2017-07-11 19:11 | Inpatient (IN) | payer MEDICAID ==
[2017-07-11] MEDS ORDERED: ATIVAN ONE (19:27)
[2017-07-11] MEDS ORDERED: ATIVAN IV ONE (19:28)
[2017-07-11 20:07] LABS: Basophils % (Auto) 0.5 % (0.0-1.8); Eosinophils % (Auto) 6.8 % (0.0-4.3); Hematocrit 40.1 % (30.3-42.9); Hemoglobin 13.2 gm/dl (10.1-14.3); Mean Corpuscular HGB Conc 33 % (30-34); Mean Corpuscular Hemoglobin 28 pg (28-32); Mean Corpuscular Volume 86 fl (79-97); Platelet Count 207 K/mm3 (140-440); Red Blood Count 4.69 M/mm3 (3.65-5.03); Red Cell Distribution Width 15.2 % (13.2-15.2); White Blood Count 10.6 K/mm3 (4.5-11.0)
--- NOTE | 2017-07-11 20:14 | Cat Scan Report ---
FINAL REPORT PROCEDURE: CT HEAD/BRAIN WO CON TECHNIQUE: Computerized tomography of the head was performed without contrast material. HISTORY: Possible transient ischemic attack. Left-sided deficits. COMPARISON: Prior CT scan of the brain 04/06/2017 FINDINGS: Brain: Brain density appears normal. No evidence of intracranial hemorrhage. No parenchymal hemorrhage, mass lesions or mass effect are seen. No abnormal extraxial fluid collects or masses are seen. Ventricles: Ventricles are normal size and are midline. Bone Windows: No evidence of skull fracture. Paranasal sinuses: There is mild mucosal thickening in the right maxillary sinus. There is a small nodular density posterior inferiorly in the left maxillary sinus suggesting a small polyp or mucous retention cyst. Small nodular density also seen anteriorly in the right side of the sphenoid sinus again suggesting a small polyp or mucous retention cyst. The paranasal sinuses otherwise appear clear. Mastoid air cells: Clear IMPRESSION: Negative unenhanced CT of the brain. If further evaluation is clinically indicated MRI of the brain could be obtained for further evaluation. Minimal paranasal sinus disease as described.
[2017-07-11 20:23] LABS: INR 0.85 (0.87-1.13)
[2017-07-11 20:24] LABS: Partial Thromboplastin Time 29.8 Sec. (24.2-36.6)
[2017-07-11 20:29] LABS: Anion Gap 17 mmol/L; BUN/Creatinine Ratio 23; Blood Urea Nitrogen 16 mg/dL (7-17); Calcium 9.3 mg/dL (8.4-10.2); Carbon Dioxide 26 mmol/L (22-30); Chloride 95.5 mmol/L (98-107); Glucose 114 mg/dL (65-100); Potassium 3.5 mmol/L (3.6-5.0); Sodium 135 mmol/L (137-145)
[2017-07-11] MEDS ORDERED: MORPHINE IV ONE (21:20)
--- NOTE | 2017-07-11 22:00 | Emergency Department Report ---
ED Neuro Deficit HPI - General Chief Complaint: Neuro Symptoms/Deficit Stated Complaint: NEURO SYMPTOMS Time Seen by Provider: 07/11/17 19:43 Source: patient, EMS Mode of arrival: Stretcher Limitations: Physical Limitation - History of Present Illness Initial Comments: Patient has history of TIAs and seizures. She reports that her seizures started after a . She has reportedly left sided deficits at baseline but around 6:25 pm she has sudden facial drooping and increased loss of function of her left side arm and legs. She also had increased left leg pain. She was brought here. EMS noted that on the scene she was responsive and able to talk. They did not administer any meds. When she arrived and was transferred to the bed she started a jerking action of her left arm and again became non- responsive. During this time I saw the patient and she had pin-point pupils minimally reactive. She was having reduced left arm jerking and after 2 minutes started moving her eyes what appeared to be in response to verbal stimuli from me. She was sent straight to CT. On return from CT she was able to utter single words and piece them together which communicate the seizures starting after her and to communicate pain in her left leg. -: Sudden Location: speech, left face, left arm, left leg Presenting Symptoms: Present: Weak/Paralyzed One Side, Facial Droop/Numbness, Unable to Speak Clearly History of same: Yes Place: home Severity: severe Quality: burning Improves With: time Worsens With: none - Related Data Home Medications: Home Medications Medication Instructions Recorded Confirmed Last Taken ALPRAZolam [Xanax TAB] 1 mg PO QID PRN 04/06/17 04/06/17 04/06/17 Hydrochlorothiazide [HCTZ] 25 mg PO QDAY 04/06/17 04/06/17 04/06/17 Potassium Chloride [K-Dur] 10 meq PO BID 04/06/17 04/06/17 04/06/17 Pregabalin [Lyrica] 75 mg PO BID 04/06/17 04/06/17 04/06/17 Quetiapine Fumarate [Seroquel] 300 mg PO HS 04/06/17 04/06/17 04/05/17 risperiDONE [RisperDAL] 4 mg PO BID 04/06/17 04/06/17 04/06/17 Oxycodone HCl [Roxicodone] 30 mg PO TID 07/11/17 07/11/17 Unknown fentaNYL [Fentanyl] 1 patch TRANSDERMA Q72H 07/11/17 07/11/17 Unknown Previous Rx's Medication Instructions Recorded Last Taken Type Clopidogrel [Plavix] 75 mg PO QDAY #30 tablet 02/17/17 04/05/17 Rx Simvastatin [Zocor TAB] 40 mg PO QHS tablet 04/09/17 Unknown Rx lamoTRIgine [LaMICtal] 150 mg PO BID #60 tablet 04/09/17 Unknown Rx levETIRAcetam [Keppra TAB] 500 mg PO BID #60 tablet 04/09/17 Unknown Rx Allergies/Adverse Reactions: Allergies Allergy/AdvReac Type Severity Reaction Status Date / Time atorvastatin calcium Allergy Unknown Verified 09/14/13 17:47 [From Lipitor] aspirin AdvReac Unknown Verified 02/26/14 13:53 ED Review of Systems ROS: Stated complaint: NEURO SYMPTOMS Other details as noted in HPI Comment: Unobtainable due to pts medical conditions Neurological: as per HPI, weakness, paresthesias Psychiatric: anxiety, depression Hematological/Lymphatic: easy bleeding, easy bruising ED Past Medical Hx - Past Medical History Hx Hypertension: Yes Hx 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) Hx Heart Attack/AMI: Yes Hx Congestive Heart Failure: Yes (11/2014) Hx Diabetes: No Hx GERD: Yes Hx Seizures: Yes Hx Asthma: No Hx COPD: No Additional medical history: Cardiac arrest 4-5 times during surgery 2006, TIA's , Ca L knee,Irregular heart beat, Lupus - Surgical History Additional Surgical History: 30 surgeries to left lower extremity, hysterectomy, CS - Social History Smoking Status: Current Every Day Smoker Substance Use Type: None - Medications Home Medications: Home Medications Medication Instructions Recorded Confirmed Last Taken Type Clopidogrel [Plavix] 75 mg PO QDAY #30 tablet 02/17/17 04/06/17 04/05/17 Rx ALPRAZolam [Xanax TAB] 1 mg PO QID PRN 04/06/17 04/06/17 04/06/17 History Hydrochlorothiazide [HCTZ] 25 mg PO QDAY 04/06/17 04/06/17 04/06/17 History Potassium Chloride [K-Dur] 10 meq PO BID 04/06/17 04/06/17 04/06/17 History Pregabalin [Lyrica] 75 mg PO BID 04/06/17 04/06/17 04/06/17 History Quetiapine Fumarate [Seroquel] 300 mg PO HS 04/06/17 04/06/17 04/05/17 History risperiDONE [RisperDAL] 4 mg PO BID 04/06/17 04/06/17 04/06/17 History Simvastatin [Zocor TAB] 40 mg PO QHS tablet 04/09/17 Unknown Rx lamoTRIgine [LaMICtal] 150 mg PO BID #60 tablet 04/09/17 Unknown Rx levETIRAcetam [Keppra TAB] 500 mg PO BID #60 tablet 04/09/17 Unknown Rx Oxycodone HCl [Roxicodone] 30 mg PO TID 07/11/17 07/11/17 Unknown History fentaNYL [Fentanyl] 1 patch TRANSDERMA Q72H 07/11/17 07/11/17 Unknown History ED Neuro Physical Exam - General Limitations: Physical Limitation General appearance: alert, in no apparent distress Suspected Stroke: Yes (Neurology was uncertain with history and presentation of Symptoms but recommended observation and EEG.) - Head Head exam: Present: atraumatic, normocephalic - Eye Eye exam: Present: normal appearance - ENT ENT exam: Present: mucous membranes moist - Neck Neck exam: Present: normal inspection - Respiratory Respiratory exam: Present: normal lung sounds bilaterally. Absent: respiratory distress - Cardiovascular Cardiovascular Exam: Present: regular rate, normal rhythm. Absent: systolic murmur, diastolic murmur, rubs, gallop - GI/Abdominal GI/Abdominal exam: Present: soft, normal bowel sounds - Extremities Exam Extremities exam: Present: normal inspection - Back Exam Back exam: Present: normal inspection - Neurological Exam Neurological exam: Present: alert, oriented X3, reflexes normal, other (Patient with decreased sensation and motor function on the left of her face and LLE and LUE. ) - NIHSS Assessment Interval: 2 hours post treatment 1a. Level of Consciousness: alert 1b. LOC Questions: answers correctly 1c. LOC Commands: performs tasks correctly 2. Best Gaze: normal 3. Visual: no visual loss 4. Facial Palsy: partial paralysis 5b. Motor Arm Right: no drift 5a. Motor Arm Left: no drift (Unable to assess due to baseline deficit) 6a. Motor Leg Left: no drift (Unable to assess due to baseline deficit) 6b. Motor Leg Right: no drift 7. Limb Ataxia: present 2 limbs 8. Sensory: mild/moderate sensory loss 9. Best Language: no aphasia 10. Dysarthria: mild/moderate dysarthria 11. Extinction/Inattention: no abnormality Total Score: 6 Stroke Severity: Moderate Stroke - Psychiatric Psychiatric exam: Present: normal affect, normal mood - Skin Skin exam: Present: warm, dry, intact, normal color. Absent: rash ED Course Vital Signs 07/11/17 07/11/17 07/11/17 19:48 19:50 20:01 Temperature 98.2 F Pulse Rate 79 74 72 Respiratory 13 18 19 Rate Blood Pressure 104/55 117/60 O2 Sat by Pulse 96 100 100 Oximetry 07/11/17 07/11/17 07/11/17 20:15 20:31 20:45 Temperature Pulse Rate 81 83 Respiratory 18 16 20 Rate Blood Pressure 130/68 127/85 116/71 O2 Sat by Pulse 99 Oximetry 07/11/17 07/11/17 07/11/17 21:01 21:06 21:15 Temperature Pulse Rate 75 73 Respiratory 15 18 15 Rate Blood Pressure 124/67 113/52 O2 Sat by Pulse 99 100 Oximetry 07/11/17 07/11/17 07/11/17 21:30 21:34 21:45 Temperature Pulse Rate 81 82 Respiratory 17 18 15 Rate Blood Pressure 113/52 O2 Sat by Pulse 100 98 Oximetry - Lab Data Result diagrams: 07/11/17 19:51 07/11/17 19:51 Lab Results 07/11/17 07/11/17 07/11/17 Range/Units 19:51 19:51 19:51 WBC 10.6 (4.5-11.0) K/mm3 RBC 4.69 (3.65-5.03) M/mm3 Hgb 13.2 (10.1-14.3) gm/dl Hct 40.1 (30.3-42.9) % MCV 86 (79-97) fl MCH 28 (28-32) pg MCHC 33 (30-34) % RDW 15.2 (13.2-15.2) % Plt Count 207 (140-440) K/mm3 Lymph % (Auto) 23.1 (13.4-35.0) % Blair % (Auto) 4.2 (0.0-7.3) % Eos % (Auto) 6.8 H (0.0-4.3) % Baso % (Auto) 0.5 (0.0-1.8) % Lymph # 2.4 (1.2-5.4) K/mm3 Blair # 0.4 (0.0-0.8) K/mm3 Eos # 0.7 H (0.0-0.4) K/mm3 Baso # 0.0 (0.0-0.1) K/mm3 Seg Neutrophils % 65.4 (40.0-70.0) % Seg Neutrophils # 6.9 (1.8-7.7) K/mm3 PT 12.0 L (12.2-14.9) Sec. INR 0.85 L (0.87-1.13) APTT 29.8 (24.2-36.6) Sec. Thrombin Time (15.1-19.6) Sec. Sodium 135 L (137-145) mmol/L Potassium 3.5 L (3.6-5.0) mmol/L Chloride 95.5 L (98-107) mmol/L Carbon Dioxide 26 (22-30) mmol/L Anion Gap 17 mmol/L BUN 16 (7-17) mg/dL Creatinine 0.7 (0.7-1.2) mg/dL Estimated GFR > 60 ml/min BUN/Creatinine Ratio 23 % Glucose 114 H (65-100) mg/dL Calcium 9.3 (8.4-10.2) mg/dL Troponin T < 0.010 (0.00-0.029) ng/mL 07/11/17 Range/Units 19:51 WBC (4.5-11.0) K/mm3 RBC (3.65-5.03) M/mm3 Hgb (10.1-14.3) gm/dl Hct (30.3-42.9) % MCV (79-97) fl MCH (28-32) pg MCHC (30-34) % RDW (13.2-15.2) % Plt Count (140-440) K/mm3 Lymph % (Auto) (13.4-35.0) % Blair % (Auto) (0.0-7.3) % Eos % (Auto) (0.0-4.3) % Baso % (Auto) (0.0-1.8) % Lymph # (1.2-5.4) K/mm3 Blair # (0.0-0.8) K/mm3 Eos # (0.0-0.4) K/mm3 Baso # (0.0-0.1) K/mm3 Seg Neutrophils % (40.0-70.0) % Seg Neutrophils # (1.8-7.7) K/mm3 PT (12.2-14.9) Sec. INR (0.87-1.13) APTT (24.2-36.6) Sec. Thrombin Time 15.2 (15.1-19.6) Sec. Sodium (137-145) mmol/L Potassium (3.6-5.0) mmol/L Chloride (98-107) mmol/L Carbon Dioxide (22-30) mmol/L Anion Gap mmol/L BUN (7-17) mg/dL Creatinine (0.7-1.2) mg/dL Estimated GFR ml/min BUN/Creatinine Ratio % Glucose (65-100) mg/dL Calcium (8.4-10.2) mg/dL Troponin T (0.00-0.029) ng/mL Unremarkable - EKG Data -: EKG Interpreted by Sc EKG shows normal: sinus rhythm, axis, intervals, QRS complexes, ST-T waves Rate: normal Interpretation: no acute changes, normal EKG - Radiology Data Radiology results: report reviewed CT with no acute changes. - Medical Decision Making Patient with both history of seizures and TIAs with acute onset of new behavior. Head CT wnl. We had telemedicine Neuro evaluate the patient, Dr. Pelletier. She does not the patient is candidate for TP with mimicking CVA symptoms at baseline but does think the patient needs to be monitored overnight with an EEG done to assess what she called abnormal non-rhythmic myoclonical jerking. I discussed with hospitalist and they will admit. - Thrombolytic Inclusion/Exclusion Thrombolytic Exclusion Criteria: Symptom Onset > 3 Hours (At the time of neuro evaluation it was less than 3 hours but consult recommended against TPA.) Critical care attestation.: If time is entered above; I have spent that time in minutes in the direct care of this critically ill patient, excluding procedure time. ED Disposition Clinical Impression: Acute focal neurological deficit, onset within 3 hours, Seizure disorder TIA (transient ischemic attack) Qualifiers: Transient cerebral ischemia type: other Qualified Code(s): G45.8 - Other transient cerebral ischemic attacks and related syndromes Disposition: OP ADMIT IP TO THIS HOSP Is pt being admited?: Yes Does the pt Need Aspirin: No Condition: Stable Time of Disposition: 22:13
[2017-07-11] MEDS ORDERED: PHENERGAN PR PRN (22:19)
[2017-07-11] MEDS ORDERED: SODIUM CHLORIDE FLUSH SYRINGE 10 ML IV PRN (22:19)
[2017-07-11] MEDS ORDERED: TYLENOL PO PRN (22:19)
[2017-07-11] MEDS ORDERED: ZOFRAN IV PRN (22:19)
[2017-07-11] MEDS ORDERED: REGLAN PO PRN (22:19)
[2017-07-11] MEDS ORDERED: MILK OF MAGNESIA PO PRN (22:19)
[2017-07-11] MEDS ORDERED: DULCOLAX PR PRN (22:19)
[2017-07-11] MEDS ORDERED: PROVENTIL IH PRN (22:19)
--- NOTE | 2017-07-11 22:19 | History and Physical Report ---
History of Present Illness Chief complaint: I feel weak on my left side, and this is new History of present illness: 52 YO Female with HTN, CAD, GERD, CVA, Seizure Disorder, SLE Not taking medication, Nicotine Dependence presents to ED for evaluation. Pt states that she has experienced a sudden onset of Left arm and leg weakness, as well as facial drooping which began around 1825 hrs. EMS notified, and upon arrival patient was responsive and talkative. Pt transported to [facility] for evaluation. Pt seen and evaluated in ED and found to have symptoms and exam findings consistent with acute stroke. Pt also experienced a jerking action of her left arm and subsequently loss consciousness. Pt regained consciousness after 2 minutes started moving. Pt was able to protect her airway. Patient denies fever , chills, chest pain, palpitation, shortness of breath, cough, abdominal pain, hematochezia, dysuria, frequency, focal weakness, dysarthria, fever chills, polydipsia polyuria, hot or cold intolerance, easy bruisability, or rash or bleeding from mucosal membrane, rhinorrhea, epistaxis, earache, tinnitus, blurry vision, eye discharge, anxiety, depression. Past History Past Medical History: acute NE, GERD, hypertension, seizures, stroke, sarcoidosis, other (Lupus, Nicotine Dependence) Past Surgical History: hysterectomy, Other (leg surgery) Social history: single, smoking. denies: alcohol abuse, prescription drug abuse , IV drug use Family history: CAD, hypertension Medications and Allergies Allergies Allergy/AdvReac Type Severity Reaction Status Date / Time atorvastatin calcium Allergy Unknown Verified 09/14/13 17:47 [From Lipitor] aspirin AdvReac Unknown Verified 02/26/14 13:53 Home Medications Medication Instructions Recorded Confirmed Last Taken Type Clopidogrel [Plavix] 75 mg PO QDAY #30 tablet 02/17/17 07/11/17 04/05/17 Rx ALPRAZolam [Xanax TAB] 1 mg PO QID PRN 04/06/17 07/11/17 04/06/17 History Hydrochlorothiazide [HCTZ] 25 mg PO QDAY 04/06/17 07/11/17 04/06/17 History Potassium Chloride [K-Dur] 10 meq PO BID 04/06/17 07/11/17 04/06/17 History Pregabalin [Lyrica] 75 mg PO BID 04/06/17 07/11/17 04/06/17 History Quetiapine Fumarate [Seroquel] 300 mg PO HS 04/06/17 07/11/17 04/05/17 History risperiDONE [RisperDAL] 4 mg PO BID 04/06/17 07/11/17 04/06/17 History Simvastatin [Zocor TAB] 40 mg PO QHS tablet 04/09/17 07/11/17 Unknown Rx lamoTRIgine [LaMICtal] 150 mg PO BID #60 tablet 04/09/17 07/11/17 Unknown Rx levETIRAcetam [Keppra TAB] 500 mg PO BID #60 tablet 04/09/17 07/11/17 Unknown Rx Oxycodone HCl [Roxicodone] 30 mg PO TID 07/11/17 07/11/17 Unknown History fentaNYL [Fentanyl] 1 patch TRANSDERMA Q72H 07/11/17 07/11/17 Unknown History Review of Systems Constitutional: weakness, no weight loss, no weight gain, no fever, no chills Ears, nose, mouth and throat: no ear pain, no ear discharge, no tinnitis, no decreased hearing, no nose pain, no nasal congestion, no nasal discharge Breasts: no change in shape Cardiovascular: syncope, no chest pain, no orthopnea, no palpitations, no rapid/ irregular heart beat, no edema Respiratory: no cough, no cough with sputum, no excessive sputum, no hemoptysis , no shortness of breath Gastrointestinal: no abdominal pain, no nausea, no vomiting, no diarrhea, no constipation Genitourinary Female: no pelvic pain, no flank pain, no menorrhagia, no dysuria , no urinary frequency, no urgency Rectal: no pain, no incontinence, no bleeding Musculoskeletal: no neck stiffness, no neck pain, no shooting arm pain, no arm numbness/tingling, no low back pain, no shooting leg pain, no leg numbness/ tingling, no redness of joints Integumentary: no rash, no pruritis, no redness, no sores, no wounds Neurological: paralysis, weakness, seizures, syncope, no head injury, no transient paralysis, no vertigo, no headaches, no migraines Psychiatric: no anxiety, no memory loss, no change in sleep habits, no sleep disturbances, no insomnia, no hypersomnia Endocrine: no cold intolerance, no heat intolerance, no polyphagia, no excessive thirst, no polydipsia, no polyuria, no nocturia Hematologic/Lymphatic: no easy bruising, no easy bleeding Allergic/Immunologic: no urticaria, no allergic rhinitis, no wheezing Exam - Constitutional Vitals: Temp Pulse Resp BP Pulse Ox 98.2 F 82 15 113/52 98 07/11/17 19:50 07/11/17 21:45 07/11/17 21:45 07/11/17 21:30 07/11/17 21:45 General appearance: Present: mild distress, obese - EENT Eyes: Present: PERRL ENT: hearing intact, clear oral mucosa - Neck Neck: Present: supple, normal ROM - Respiratory Respiratory effort: normal Respiratory: bilateral: CTA - Cardiovascular Heart Sounds: Present: S1 & S2. Absent: rub, click - Extremities Extremities: pulses symmetrical, No edema Peripheral Pulses: within normal limits - Abdominal General gastrointestinal: Present: soft, non-tender, non-distended, normal bowel sounds Female genitourinary: Present: normal - Integumentary Integumentary: Present: clear, warm, dry - Musculoskeletal Musculoskeletal: left sided weakness - Psychiatric Psychiatric: appropriate mood/affect, intact judgment & insight - Neurologic Neurologic: focal deficits, no moves all extremities, no gait normal Results - Labs CBC & Chem 7: 07/11/17 19:51 07/11/17 19:51 Labs: Abnormal lab results 07/11/17 07/11/17 07/11/17 Range/Units 19:51 19:51 19:51 Eos % (Auto) 6.8 H (0.0-4.3) % Eos # 0.7 H (0.0-0.4) K/mm3 PT 12.0 L (12.2-14.9) Sec. INR 0.85 L (0.87-1.13) Sodium 135 L (137-145) mmol/L Potassium 3.5 L (3.6-5.0) mmol/L Chloride 95.5 L (98-107) mmol/L Glucose 114 H (65-100) mg/dL Assessment and Plan - Patient Problems (1) CVA (cerebral vascular accident) Current Visit: Yes Status: Acute Plan to address problem: Stroke protocol: CT Head, MRI Brain, MRA Brain, Echo, Carotid Doppler, Antiplatelet therapy, statin therapy, PT/OT, Speech Therapy, (2) Seizure disorder Current Visit: Yes Status: Acute Plan to address problem: EEG, continue anti epileptic therapy. (3) Nicotine dependence Current Visit: Yes Status: Acute Plan to address problem: Pt counseled, Pt refused to pick quit date. (4) HTN (hypertension) Current Visit: Yes Status: Acute Plan to address problem: monitor bp q shift, continue medical management. (5) DVT prophylaxis Current Visit: Yes Status: Acute
[2017-07-11] MEDS ORDERED: XANAX PO PRN (22:22)
[2017-07-11] MEDS: ROXICODONE PO SCH (23:42)
[2017-07-12] MEDS ORDERED: NON-FORMULARY (Oxycodone Hcl [Roxicodone] 30 MG) PO SCH (08:00)
[2017-07-12] MEDS ORDERED: NON-FORMULARY (Risperidone [Risperdal] 4 MG) PO SCH (10:00)
[2017-07-12] MEDS ORDERED: NON-FORMULARY (Lamotrigine [Lamictal] 150 MG) PO SCH (10:00)
[2017-07-12] MEDS ORDERED: ASPIRIN PO SCH (10:00)
[2017-07-12] MEDS ORDERED: DURAGESIC TD SCH (10:00)
[2017-07-12] MEDS: ROXICODONE PO SCH ×3 (10:12→23:52)
[2017-07-12] MEDS: HCTZ PO SCH (10:14)
[2017-07-12] MEDS: LaMICtal PO SCH ×2 (10:14→23:46)
[2017-07-12] MEDS: K-DUR PO SCH ×2 (10:14→23:50)
[2017-07-12] MEDS: PLAVIX PO SCH (10:15)
[2017-07-12] MEDS: KEPPRA PO SCH ×2 (10:15→23:50)
[2017-07-12] MEDS: LYRICA PO SCH ×2 (10:27→23:49)
[2017-07-12] MEDS: RisperDAL PO SCH ×4 (10:28→23:50)
--- NOTE | 2017-07-12 11:33 | Progress Note ---
Assessment and Plan Assessment and plan: CVA (cerebral vascular accident) Cont. Stroke protocol. F/U CT Head, MRI Brain, MRA Brain, Echo and Carotid Doppler. Cont. Antiplatelet therapy, statin therapy, PT/OT, Speech Therapy. Neurology consultation. Seizure disorder F/U EEG, continue keppra and Lamictal. Nicotine dependence Pt counseled, Pt refused to pick quit date. HTN (hypertension) monitor bp q shift, continue medical management. DVT prophylaxis History Interval history: No new issues Hospitalist Physical - Constitutional Vitals: Temp Pulse Resp BP Pulse Ox 97.9 F 65 18 107/56 98 07/12/17 07:50 07/12/17 07:50 07/12/17 10:12 07/12/17 07:50 07/12/17 07:50 General appearance: Present: no acute distress, obese - EENT Eyes: Present: PERRL, EOM intact ENT: hearing intact, clear oral mucosa, dentition normal - Neck Neck: Present: supple, normal ROM - Respiratory Respiratory effort: normal Respiratory: bilateral: CTA - Cardiovascular Rhythm: regular Heart Sounds: Present: S1 & S2. Absent: gallop, rub - Extremities Extremities: no ischemia, No edema, Full ROM - Abdominal General gastrointestinal: soft, non-tender, non-distended, normal bowel sounds - Integumentary Integumentary: Present: clear, warm, dry - Neurologic Neurologic: CNII-XII intact, moves all extremities Results - Labs CBC & Chem 7: 07/11/17 19:51 07/11/17 19:51 Labs: Laboratory Last Values WBC 10.6 K/mm3 (4.5-11.0) 07/11/17 19:51 RBC 4.69 M/mm3 (3.65-5.03) 07/11/17 19:51 Hgb 13.2 gm/dl (10.1-14.3) 07/11/17 19:51 Hct 40.1 % (30.3-42.9) 07/11/17 19:51 MCV 86 fl (79-97) 07/11/17 19:51 MCH 28 pg (28-32) 07/11/17 19:51 MCHC 33 % (30-34) 07/11/17 19:51 RDW 15.2 % (13.2-15.2) 07/11/17 19:51 Plt Count 207 K/mm3 (140-440) 07/11/17 19:51 Lymph % (Auto) 23.1 % (13.4-35.0) 07/11/17 19:51 Boyd % (Auto) 4.2 % (0.0-7.3) 07/11/17 19:51 Eos % (Auto) 6.8 % (0.0-4.3) H 07/11/17 19:51 Baso % (Auto) 0.5 % (0.0-1.8) 07/11/17 19:51 Lymph # 2.4 K/mm3 (1.2-5.4) 07/11/17 19:51 Boyd # 0.4 K/mm3 (0.0-0.8) 07/11/17 19:51 Eos # 0.7 K/mm3 (0.0-0.4) H 07/11/17 19:51 Baso # 0.0 K/mm3 (0.0-0.1) 07/11/17 19:51 Seg Neutrophils % 65.4 % (40.0-70.0) 07/11/17 19:51 Seg Neutrophils # 6.9 K/mm3 (1.8-7.7) 07/11/17 19:51 PT 12.0 Sec. (12.2-14.9) L 07/11/17 19:51 INR 0.85 (0.87-1.13) L 07/11/17 19:51 APTT 29.8 Sec. (24.2-36.6) 07/11/17 19:51 Thrombin Time 15.2 Sec. (15.1-19.6) 07/11/17 19:51 Sodium 135 mmol/L (137-145) L 07/11/17 19:51 Potassium 3.5 mmol/L (3.6-5.0) L 07/11/17 19:51 Chloride 95.5 mmol/L (98-107) L 07/11/17 19:51 Carbon Dioxide 26 mmol/L (22-30) 07/11/17 19:51 Anion Gap 17 mmol/L 07/11/17 19:51 BUN 16 mg/dL (7-17) 07/11/17 19:51 Creatinine 0.7 mg/dL (0.7-1.2) 07/11/17 19:51 Estimated GFR > 60 ml/min 07/11/17 19:51 BUN/Creatinine Ratio 23 % 07/11/17 19:51 Glucose 114 mg/dL (65-100) H 07/11/17 19:51 Calcium 9.3 mg/dL (8.4-10.2) 07/11/17 19:51 Troponin T < 0.010 ng/mL (0.00-0.029) 07/11/17 19:51 Triglycerides 114 mg/dL (2-149) 07/12/17 06:44 Cholesterol 167 mg/dL (50-199) 07/12/17 06:44 LDL Cholesterol Direct 102 mg/dL (50-130) 07/12/17 06:44 HDL Cholesterol 43 mg/dL (40-59) 07/12/17 06:44 Cholesterol/HDL Ratio 3.88 % 07/12/17 06:44
[2017-07-12] MEDS ORDERED: PNEUMOVAX 23 IM ONE (12:00)
[2017-07-12] MEDS ORDERED: Fluarix Quad 2017-2018(36 MOS+ IM ONE (12:00)
--- NOTE | 2017-07-12 12:50 | Magnetic Resonance Report ---
MRI BRAIN WITHOUT CONTRAST: 07/12/17 CLINICAL: Stroke. TECHNIQUE: Axial diffusion, T1, T2, FLAIR, gradient echo T2*, and sagittal T1 sequences on a 1.5 Marge magnet. FINDINGS: Normal ventricles and sulci. No restricted diffusion. No abnormal signal. No mass or mass effect. No hemorrhage, edema or extra-axial collection. Normal pituitary and optic chiasm. The brainstem and cerebellum are normal. Intact vascular flow voids. Normal sinuses. The orbits, and soft tissues are normal. Normal calvarium and skull base. IMPRESSION: Normal study.
--- NOTE | 2017-07-12 12:55 | Magnetic Resonance Report ---
MRA HEAD WITHOUT CONTRAST HISTORY: Stroke. [id number] imaging with MIP reformations of the ramona of Concepcion is submitted. The arteries appear widely patent and free of hemodynamically significant stenosis or aneurysm dilatation. Both vertebral arteries are identified appearing patent as well. IMPRESSION: Unremarkable MRA head.
--- NOTE | 2017-07-12 13:44 | Consultation ---
History of Present Illness Consult date: 07/12/17 History of present illness: MRI of the brain is normal suspect these are not TIA's rather thnk seizures need to be ruled out therefore check EEG exam is very spurios these may be functional ( feigned ) based on the observed twisted face feature thanks Past History Past Medical History: acute [place], GERD, hypertension, seizures, stroke, sarcoidosis, other (Lupus, Nicotine Dependence) Past Surgical History: hysterectomy, Other (leg surgery) Social history: single, smoking. denies: alcohol abuse, prescription drug abuse , IV drug use Family history: CAD, hypertension Medications and Allergies Allergies Allergy/AdvReac Type Severity Reaction Status Date / Time atorvastatin calcium Allergy Unknown Verified 09/14/13 17:47 [From Lipitor] aspirin AdvReac Unknown Verified 02/26/14 13:53 Home Medications Medication Instructions Recorded Confirmed Last Taken Type Clopidogrel [Plavix] 75 mg PO QDAY #30 tablet 02/17/17 07/11/17 04/05/17 Rx ALPRAZolam [Xanax TAB] 1 mg PO QID PRN 04/06/17 07/11/17 04/06/17 History Hydrochlorothiazide [HCTZ] 25 mg PO QDAY 04/06/17 07/11/17 04/06/17 History Potassium Chloride [K-Dur] 10 meq PO BID 04/06/17 07/11/17 04/06/17 History Pregabalin [Lyrica] 75 mg PO BID 04/06/17 07/11/17 04/06/17 History Quetiapine Fumarate [Seroquel] 300 mg PO HS 04/06/17 07/11/17 04/05/17 History risperiDONE [RisperDAL] 4 mg PO BID 04/06/17 07/11/17 04/06/17 History Simvastatin [Zocor TAB] 40 mg PO QHS tablet 04/09/17 07/11/17 Unknown Rx lamoTRIgine [LaMICtal] 150 mg PO BID #60 tablet 04/09/17 07/11/17 Unknown Rx levETIRAcetam [Keppra TAB] 500 mg PO BID #60 tablet 04/09/17 07/11/17 Unknown Rx Oxycodone HCl [Roxicodone] 30 mg PO TID 07/11/17 07/11/17 Unknown History fentaNYL [Fentanyl] 1 patch TRANSDERMA Q72H 07/11/17 07/11/17 Unknown History Active Meds: Active Medications Acetaminophen (Tylenol) 650 mg PO Q4H PRN PRN Reason: Pain, Mild (1-3) Albuterol (Proventil) 2.5 mg IH Q3HRT PRN PRN Reason: Shortness Of Breath Alprazolam (Xanax) 1 mg PO QID PRN PRN Reason: Anxiety Bisacodyl (Dulcolax) 10 mg [place] QDAY PRN PRN Reason: Constipation Clopidogrel Bisulfate (Plavix) 75 mg PO QDAY [facility] Last Admin: 07/12/17 10:15 Dose: 75 mg Enoxaparin Sodium (Lovenox) 40 mg SUB-Q QDAY@2200 [facility] Fentanyl (Duragesic) 12 mcg TD Q72HR [facility] Hydrochlorothiazide (Hctz) 25 mg PO QDAY [facility] Last Admin: 07/12/17 10:14 Dose: 25 mg Lamotrigine (Lamictal) 150 mg PO BID [facility] Last Admin: 07/12/17 10:14 Dose: 150 mg Levetiracetam (Keppra) 500 mg PO BID [facility] Last Admin: 07/12/17 10:15 Dose: 500 mg Magnesium Hydroxide (Milk Of Magnesia) 30 ml PO Q4H PRN PRN Reason: Constipation Metoclopramide HCl (Reglan) 10 mg PO Q6H PRN PRN Reason: Nausea And Vomiting Ondansetron HCl (Zofran) 4 mg IV Q8H PRN PRN Reason: N/V unrelieved by Reglan Oxycodone HCl (Roxicodone) 30 mg PO TID [facility] Last Admin: 07/12/17 10:12 Dose: 30 mg Potassium Chloride (K-Dur) 10 meq PO BID [facility] Last Admin: 07/12/17 10:14 Dose: 10 meq Pravastatin Sodium (Pravachol) 80 mg PO QHS [facility] Pregabalin (Lyrica) 75 mg PO BID [facility] Last Admin: 07/12/17 10:27 Dose: 75 mg Promethazine HCl (Phenergan) 25 mg [place] Q6H PRN PRN Reason: Nausea And Vomiting Quetiapine Fumarate (Seroquel) 300 mg PO HS [facility] Risperidone (Risperdal) 3 mg PO BID [facility] Last Admin: 07/12/17 11:03 Dose: 3 mg Risperidone (Risperdal) 1 mg PO BID [facility] Last Admin: 07/12/17 10:28 Dose: 1 mg Sodium Chloride (Sodium Chloride Flush Syringe 10 Ml) 10 ml IV PRN PRN PRN Reason: LINE FLUSH Physical Examination - Vital Signs Vital Signs: Vital Signs Pulse Resp Pulse Ox 79 13 96 07/11/17 19:48 07/11/17 19:48 07/11/17 19:48 Results - Laboratory Findings CBC and BMP: 07/11/17 19:51 07/11/17 19:51 Abnormal Lab Findings: Abnormal Labs 07/11/17 07/11/17 07/11/17 19:51 19:51 19:51 Eos % (Auto) 6.8 H Eos # 0.7 H PT 12.0 L INR 0.85 L Sodium 135 L Potassium 3.5 L Chloride 95.5 L Glucose 114 H
[2017-07-12] MEDS ORDERED: NON-FORMULARY (Simvastatin 40 MG) PO SCH (22:00)
[2017-07-12] MEDS: PRAVACHOL PO SCH (23:45)
[2017-07-12] MEDS: LOVENOX SUB-Q SCH (23:49)
[2017-07-13 07:53] LABS: Basophils % (Auto) 0.4 % (0.0-1.8); Eosinophils % (Auto) 5.9 % (0.0-4.3); Hematocrit 36.5 % (30.3-42.9); Mean Corpuscular HGB Conc 33 % (30-34); Mean Corpuscular Hemoglobin 28 pg (28-32); Mean Corpuscular Volume 85 fl (79-97); Platelet Count 181 K/mm3 (140-440); Red Blood Count 4.28 M/mm3 (3.65-5.03); Red Cell Distribution Width 15.5 % (13.2-15.2); White Blood Count 7.7 K/mm3 (4.5-11.0)
[2017-07-13 08:13] LABS: Anion Gap 18 mmol/L; BUN/Creatinine Ratio 23; Blood Urea Nitrogen 16 mg/dL (7-17); Carbon Dioxide 26 mmol/L (22-30); Chloride 103.8 mmol/L (98-107); Glucose 132 mg/dL (65-100); Sodium 144 mmol/L (137-145)
[2017-07-13] MEDS: HCTZ PO SCH (10:36)
[2017-07-13] MEDS: LaMICtal PO SCH (10:36)
[2017-07-13] MEDS: PLAVIX PO SCH (10:36)
[2017-07-13] MEDS: KEPPRA PO SCH (10:36)
[2017-07-13] MEDS: LYRICA PO SCH (10:36)
[2017-07-13] MEDS: K-DUR PO SCH (10:36)
[2017-07-13] MEDS: RisperDAL PO SCH ×2 (10:37)
[2017-07-13] MEDS: ROXICODONE PO SCH ×2 (10:37→15:20)
--- NOTE | 2017-07-13 12:22 | Progress Note ---
Assessment and Plan Assessment and plan: Left sided weakness. MRI Brain unremarkable. Acute stroke ruled out Hypertension. BP stable Seizure disorder. Continue Keppra and Lamictal CAD. On Aspirin, Plavix, statins. Lupus. No acute exacerbation. DVT prophylaxis with Lovenox History of stroke. Full code status History Interval history: Left sided weakness Facial weakness Hospitalist Physical - Constitutional Vitals: Temp Pulse Resp BP Pulse Ox 97.8 F 75 20 109/63 96 07/13/17 05:26 07/13/17 05:26 07/13/17 05:26 07/13/17 05:26 07/13/17 05:26 General appearance: Present: no acute distress, obese - EENT ENT: hearing intact, clear oral mucosa - Neck Neck: Present: supple - Respiratory Respiratory effort: normal Respiratory: bilateral: CTA - Cardiovascular Rhythm: regular Heart Sounds: Present: S1 & S2 - Extremities Extremities: no ischemia, No edema - Abdominal General gastrointestinal: soft, non-tender, non-distended, normal bowel sounds - Psychiatric Psychiatric: appropriate mood/affect - Neurologic Neurologic: other (awake,alert,moves all ext) Results - Labs CBC & Chem 7: 07/13/17 06:33 07/13/17 06:33 Labs: Laboratory Last Values WBC 7.7 K/mm3 (4.5-11.0) 07/13/17 06:33 RBC 4.28 M/mm3 (3.65-5.03) 07/13/17 06:33 Hgb 12.0 gm/dl (10.1-14.3) 07/13/17 06:33 Hct 36.5 % (30.3-42.9) 07/13/17 06:33 MCV 85 fl (79-97) 07/13/17 06:33 MCH 28 pg (28-32) 07/13/17 06:33 MCHC 33 % (30-34) 07/13/17 06:33 RDW 15.5 % (13.2-15.2) H 07/13/17 06:33 Plt Count 181 K/mm3 (140-440) 07/13/17 06:33 Lymph % (Auto) 16.3 % (13.4-35.0) 07/13/17 06:33 Power % (Auto) 5.7 % (0.0-7.3) 07/13/17 06:33 Eos % (Auto) 5.9 % (0.0-4.3) H 07/13/17 06:33 Baso % (Auto) 0.4 % (0.0-1.8) 07/13/17 06:33 Lymph # 1.3 K/mm3 (1.2-5.4) 07/13/17 06:33 Power # 0.4 K/mm3 (0.0-0.8) 07/13/17 06:33 Eos # 0.4 K/mm3 (0.0-0.4) 07/13/17 06:33 Baso # 0.0 K/mm3 (0.0-0.1) 07/13/17 06:33 Seg Neutrophils % 71.7 % (40.0-70.0) H 07/13/17 06:33 Seg Neutrophils # 5.5 K/mm3 (1.8-7.7) 07/13/17 06:33 PT 12.0 Sec. (12.2-14.9) L 07/11/17 19:51 INR 0.85 (0.87-1.13) L 07/11/17 19:51 APTT 29.8 Sec. (24.2-36.6) 07/11/17 19:51 Thrombin Time 15.2 Sec. (15.1-19.6) 07/11/17 19:51 Sodium 144 mmol/L (137-145) D 07/13/17 06:33 Potassium 4.0 mmol/L (3.6-5.0) 07/13/17 06:33 Chloride 103.8 mmol/L (98-107) 07/13/17 06:33 Carbon Dioxide 26 mmol/L (22-30) 07/13/17 06:33 Anion Gap 18 mmol/L 07/13/17 06:33 BUN 16 mg/dL (7-17) 07/13/17 06:33 Creatinine 0.7 mg/dL (0.7-1.2) 07/13/17 06:33 Estimated GFR > 60 ml/min 07/13/17 06:33 BUN/Creatinine Ratio 23 % 07/13/17 06:33 Glucose 132 mg/dL (65-100) H 07/13/17 06:33 Calcium 9.0 mg/dL (8.4-10.2) 07/13/17 06:33 Troponin T < 0.010 ng/mL (0.00-0.029) 07/11/17 19:51 Triglycerides 114 mg/dL (2-149) 07/12/17 06:44 Cholesterol 167 mg/dL (50-199) 07/12/17 06:44 LDL Cholesterol Direct 102 mg/dL (50-130) 07/12/17 06:44 HDL Cholesterol 43 mg/dL (40-59) 07/12/17 06:44 Cholesterol/HDL Ratio 3.88 % 07/12/17 06:44
[2017-07-14] MEDS: LOVENOX SUB-Q SCH
[2017-07-14] MEDS: LaMICtal PO SCH ×2 (00:27→10:42)
[2017-07-14] MEDS: RisperDAL PO SCH ×4 (00:28→10:42)
[2017-07-14] MEDS: PRAVACHOL PO SCH (00:28)
[2017-07-14] MEDS: LYRICA PO SCH ×2 (00:36→10:41)
[2017-07-14] MEDS: K-DUR PO SCH ×2 (00:36→10:41)
[2017-07-14] MEDS: KEPPRA PO SCH ×2 (00:36→10:41)
[2017-07-14] MEDS: ROXICODONE PO SCH ×2 (01:31→10:41)
[2017-07-14] MEDS: PLAVIX PO SCH (10:41)
[2017-07-14] MEDS: HCTZ PO SCH (10:42)
--- NOTE | 2017-07-14 11:16 | Discharge Summary ---
Providers - Providers Date of Admission: 07/11/17 22:19 Date of discharge: 07/14/17 Attending physician: JJ MUÑOZ 07/11/17 22:19 Occupational Therapy Evaluate and Treat [CONS] Routine Comment: Reason For Exam: Neuro deficits Physical Therapy Evaluation and Treat [CONS] Routine Comment: Reason For Exam: Neuro deficits 07/12/17 11:31 Consult to Physician [CONS] Routine Consulting Provider: BENJAMIN AL Reason For Exam: cva, sz Place consult to:: Dr. 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 Hospitalization Condition: Fair Disposition: DC-01 TO HOME OR SELFCARE - Discharge Diagnoses (1) Seizure disorder Status: Chronic (2) HTN (hypertension) Status: Chronic Qualifiers: Hypertension type: essential hypertension Qualified Code(s): I10 - Essential (primary) hypertension (3) Hyperlipidemia Status: Chronic (4) CAD (coronary artery disease) Status: Acute (5) History of stroke Status: Chronic (6) Hyponatremia Status: Acute (7) Hypokalemia Status: Acute (8) Lupus Status: Chronic Core Measure Documentation - Palliative Care Palliative Care/ Comfort Measures: Not Applicable - Core Measures Any of the following diagnoses?: none Exam - Constitutional Vitals: Temp Pulse Resp BP Pulse Ox 97.7 F 71 20 112/73 100 07/14/17 08:55 07/14/17 08:55 07/14/17 08:55 07/14/17 08:55 07/14/17 08:55 General appearance: Present: no acute distress - EENT Eyes: Present: PERRL ENT: hearing intact - Neck Neck: Present: supple - Respiratory Respiratory effort: normal Respiratory: bilateral: CTA - Cardiovascular Rhythm: regular Heart Sounds: Present: S1 & S2 - Extremities Extremities: No edema - Abdominal General gastrointestinal: Present: soft, non-tender, normal bowel sounds - Neurologic Neurologic: moves all extremities Plan Activity: advance as tolerated Additional Instructions: 1.Follow up with PCP or [facility] medical in 1 week. 2.Follow up with Dr. Al in 1 week Follow up with: PRIMARY CAREMD [Primary Care Provider] - 7 Days
--- NOTE | 2017-07-14 12:13 | Consultation ---
History of Present Illness Consult date: 07/14/17 History of present illness: seizure control excellent facial twitches have stopped and she is alert/ ambulatory at this time... expalined too the patient she will need to be more compliant with seizure meds in the future.... she confirmed that this recommendation is understood Past History Past Medical History: acute [place], GERD, hypertension, seizures, stroke, sarcoidosis, other (Lupus, Nicotine Dependence) Past Surgical History: hysterectomy, Other (leg surgery) Social history: single, smoking. denies: alcohol abuse, prescription drug abuse , IV drug use Family history: CAD, hypertension Medications and Allergies Allergies Allergy/AdvReac Type Severity Reaction Status Date / Time atorvastatin calcium Allergy Unknown Verified 09/14/13 17:47 [From Lipitor] aspirin AdvReac Unknown Verified 02/26/14 13:53 Home Medications Medication Instructions Recorded Confirmed Last Taken Type Clopidogrel [Plavix] 75 mg PO QDAY #30 tablet 02/17/17 07/11/17 04/05/17 Rx ALPRAZolam [Xanax TAB] 1 mg PO QID PRN 04/06/17 07/11/17 04/06/17 History Hydrochlorothiazide [HCTZ] 25 mg PO QDAY 04/06/17 07/11/17 04/06/17 History Potassium Chloride [K-Dur] 10 meq PO BID 04/06/17 07/11/17 04/06/17 History Pregabalin [Lyrica] 75 mg PO BID 04/06/17 07/11/17 04/06/17 History Quetiapine Fumarate [Seroquel] 300 mg PO HS 04/06/17 07/11/17 04/05/17 History risperiDONE [RisperDAL] 4 mg PO BID 04/06/17 07/11/17 04/06/17 History Simvastatin [Zocor TAB] 40 mg PO QHS tablet 04/09/17 07/11/17 Unknown Rx lamoTRIgine [LaMICtal] 150 mg PO BID #60 tablet 04/09/17 07/11/17 Unknown Rx Oxycodone HCl [Roxicodone] 30 mg PO TID 07/11/17 07/11/17 Unknown History fentaNYL [Fentanyl] 1 patch TRANSDERMA Q72H 07/11/17 07/11/17 Unknown History levETIRAcetam [Keppra TAB] 500 mg PO BID tablet 07/14/17 Unknown Rx Active Meds: Active Medications Acetaminophen (Tylenol) 650 mg PO Q4H PRN PRN Reason: Pain, Mild (1-3) Albuterol (Proventil) 2.5 mg IH Q3HRT PRN PRN Reason: Shortness Of Breath Alprazolam (Xanax) 1 mg PO QID PRN PRN Reason: Anxiety Bisacodyl (Dulcolax) [address] QDAY PRN PRN Reason: Constipation Clopidogrel Bisulfate (Plavix) 75 mg PO QDAY [facility] Last Admin: 07/14/17 10:41 Dose: 75 mg Enoxaparin Sodium (Lovenox) 40 mg SUB-Q QDAY@2200 [facility] Last Admin: 07/14/17 00:00 Dose: 40 mg Fentanyl (Duragesic) 12 mcg TD Q72HR [facility] Hydrochlorothiazide (Hctz) 25 mg PO QDAY [facility] Last Admin: 07/14/17 10:42 Dose: 25 mg Lamotrigine (Lamictal) 150 mg PO BID [facility] Last Admin: 07/14/17 10:42 Dose: 150 mg Levetiracetam (Keppra) 500 mg PO BID [facility] Last Admin: 07/14/17 10:41 Dose: 500 mg Magnesium Hydroxide (Milk Of Magnesia) 30 ml PO Q4H PRN PRN Reason: Constipation Metoclopramide HCl (Reglan) 10 mg PO Q6H PRN PRN Reason: Nausea And Vomiting Ondansetron HCl (Zofran) 4 mg IV Q8H PRN PRN Reason: N/V unrelieved by Reglan Oxycodone HCl (Roxicodone) 30 mg PO TID [facility] Last Admin: 07/14/17 10:41 Dose: 30 mg Potassium Chloride (K-Dur) 10 meq PO BID [facility] Last Admin: 07/14/17 10:41 Dose: 10 meq Pravastatin Sodium (Pravachol) 80 mg PO QHS [facility] Last Admin: 07/14/17 00:28 Dose: 80 mg Pregabalin (Lyrica) 75 mg PO BID [facility] Last Admin: 07/14/17 10:41 Dose: 75 mg Promethazine HCl (Phenergan) [address] Q6H PRN PRN Reason: Nausea And Vomiting Quetiapine Fumarate (Seroquel) 300 mg PO HS [facility] Last Admin: 07/14/17 00:28 Dose: 300 mg Risperidone (Risperdal) 3 mg PO BID [facility] Last Admin: 07/14/17 10:42 Dose: 3 mg Risperidone (Risperdal) 1 mg PO BID [facility] Last Admin: 07/14/17 10:42 Dose: 1 mg Sodium Chloride (Sodium Chloride Flush Syringe 10 Ml) 10 ml IV PRN PRN PRN Reason: LINE FLUSH Physical Examination - Vital Signs Vital Signs: Vital Signs Pulse Resp Pulse Ox 79 13 96 07/11/17 19:48 07/11/17 19:48 07/11/17 19:48 Results - Laboratory Findings CBC and BMP: 07/13/17 06:33 07/13/17 06:33 Abnormal Lab Findings: Abnormal Labs 07/11/17 07/11/17 07/11/17 19:51 19:51 19:51 RDW Eos % (Auto) 6.8 H Eos # 0.7 H Seg Neutrophils % PT 12.0 L INR 0.85 L Sodium 135 L Potassium 3.5 L Chloride 95.5 L Glucose 114 H 07/13/17 07/13/17 06:33 06:33 RDW 15.5 H Eos % (Auto) 5.9 H Eos # Seg Neutrophils % 71.7 H PT INR Sodium Potassium Chloride Glucose 132 H
[2017-07-14 13:25] VITALS: BP 162/83
--- NOTE | 2017-07-19 08:03 | Vascular Lab Report ---
CAROTID DUPLEX STUDY: RIGHT PSVEDV CCA [id number] CCA DIST:[id number] ICA PROX:6523 ICA MID:9631 ICA DIST:[id number] ECA: 676 VERT: 78 14 LEFT PSVEDV CCA PROX:[id number] CCA DIST:7416 ICA PROX:6714 ICA MID:6914 ICA DIST:8223 ECA: 459 VERT: 73 18 REASON FOR EXAM: Left sided weakness. COMMENTS ON THE RIGHT: Doppler frequency analysis is consistent with 16 to 49 percent diameter reduction of the internal carotid artery. Minimal amount of plaque is seen. The common carotid artery is patent. The external carotid artery is patent. The vertebral artery has antegrade flow. COMMENTS ON THE LEFT: Doppler frequency analysis is consistent with 16 to 49 percent diameter reduction of the internal carotid artery. Minimal amount of plaque is seen. The common carotid artery is patent. The external carotid artery is patent. The vertebral artery has antegrade flow. IMPRESSION: Less than 50% diameter reduction in the internal carotid arteries bilaterally. Consider repeat carotid artery duplex in 12 months.
--- NOTE | 2017-07-19 16:34 | Query- General ---
Niko Santos____Fifi Date:____07/19/17 Pump Oiler/CDS:____Cayla / Lurdesholden Phone#:__[phone] Exercise your independent professional judgment when responding to this query. Questions asked do not imply a particular answer is desired or expected. We greatly appreciate your clarification on this issue. Clinical Documentation States: 52 year old female was admitted on 07/11/17 The progress note (Dr. Levine 07/12/17) states " Assessment and plan: CVA (cerebral vascular accident) Cont. Stroke protocol. F/U CT Head, MRI Brain, MRA Brain, Echo and Carotid Doppler. Cont. Antiplatelet therapy, statin therapy, PT/OT, Speech Therapy. Neurology consultation. " Given the above clinical scenario can you please provide an appropriate diagnosis based on your knowledge of the patient: PHYSICIAN RESPONSE: [ ] CVA Ruled in [ x ] CVA ruled out [ ] Other(Please specify) Present on Admission: [ ] Yes (Y) [ ] Clinically undeterminable (W) [ x]No(N) Please also document response in your Progress Notes and/or Discharge Summary and indicate if the condition was present on admission. MTDD
== END 2017-07-14 13:00 | disposition home or self-care (01) | DRG 101 ==
LOC: ED 19:11 → 4A 22:19
PROVIDERS: ADMIT Internal Medicine; ATTEND Internal Medicine
PROC: 3E0234Z Introduction of Serum, Toxoid and Vaccine into Muscle, Percutaneous Approach (ICD-10-PCS; principal; 2017-07-12)
DX: G40.909 Epilepsy, unspecified, not intractable, without status epilepticus (principal); M32.9 Systemic lupus erythematosus, unspecified; I69.351 Hemiplegia and hemiparesis following cerebral infarction affecting right dominant side; Z88.6 Allergy status to analgesic agent; Z88.8 Allergy status to other drugs, medicaments and biological substances; Z23 Encounter for immunization; I25.2 Old myocardial infarction; I11.0 Hypertensive heart disease with heart failure; I50.9 Heart failure, unspecified; K21.9 Gastro-esophageal reflux disease without esophagitis; Z90.710 Acquired absence of both cervix and uterus; F17.200 Nicotine dependence, unspecified, uncomplicated; Z79.899 Other long term (current) drug therapy; I25.10 Atherosclerotic heart disease of native coronary artery without angina pectoris; Z82.49 Family history of ischemic heart disease and other diseases of the circulatory system
CPT/HCPCS: 36415; 70450; 70544; 70551; 80048; 80061; 84484; 85025; 85610; 85670; 85730; 90686; 90732; 93005; 93010; 93308; 93321; 93325; 93880; 95819; 96374; 96375; 99406; A9270-GY; J1650; J2060; J2270

== ENCOUNTER 2017-08-29 18:48 | Emergency (ER) | payer MEDICAID ==
--- NOTE | 2017-08-29 19:07 | Cat Scan Report ---
FINAL REPORT PROCEDURE: CT HEAD/BRAIN WO CON TECHNIQUE: Computerized tomography of the head was performed without contrast material. HISTORY: neuro deficits < 6hrs or sx present upon awakening COMPARISON: 07/11/2017 FINDINGS: There is no CT evidence of intracranial mass, hemorrhage, hydrocephalus, or acute territorial infarction. The intracranial arteries are symmetric in density. There is mild left frontal scalp soft tissue swelling. Calvarium is intact. There is minimal bilateral maxillary sinus mucosal thickening. Bilateral exophthalmos is noted. IMPRESSION: No CT evidence of acute intracranial abnormality
[2017-08-29 19:31] LABS: Hematocrit 40.3 % (30.3-42.9); Mean Corpuscular HGB Conc 32 % (30-34); Mean Corpuscular Hemoglobin 27 pg (28-32); Mean Corpuscular Volume 82 fl (79-97); Platelet Count 218 K/mm3 (140-440); Red Blood Count 4.89 M/mm3 (3.65-5.03); Red Cell Distribution Width 16.5 % (13.2-15.2)
[2017-08-29 19:32] LABS: Basophils % (Auto) 1.3 % (0.0-1.8); Eosinophils % (Auto) 4.9 % (0.0-4.3); Lymphocytes % (Auto) 11.3 % (13.4-35.0); Monocytes % (Auto) 3.9 % (0.0-7.3)
[2017-08-29 19:33] LABS: Basophils # (Auto) 0.1 K/mm3 (0.0-0.1); Eosinophils # (Auto) 0.6 K/mm3 (0.0-0.4); Lymphocytes # (Auto) 1.3 K/mm3 (1.2-5.4); Monocytes # (Auto) 0.4 K/mm3 (0.0-0.8)
[2017-08-29 19:41] LABS: INR 0.92 (0.87-1.13)
--- NOTE | 2017-08-29 19:54 | Emergency Department Report ---
ED Neuro Deficit HPI - General Chief Complaint: Neuro Symptoms/Deficit Stated Complaint: POSSIBLE CVA Time Seen by Provider: 08/29/17 19:32 Source: patient Mode of arrival: Stretcher Limitations: No Limitations - History of Present Illness Initial Comments: 52 yo female who comes in today due to a possible cva. She states that it started around 1800 this evening. She was sitting at home and had a headache followed by a seizure. States that she take keppra for her seizures which she doesn't take due to the cost per the patient. After the seizure, she states that she started to have a left facial droop, left upper/left lower extremity weakness. Initial CT head unremarkable. History of prior cva with a left hemiplegia. -: This evening Time: 18:00 Location: left face, left arm, left leg Presenting Symptoms: Present: Weak/Paralyzed One Side, Facial Droop/Numbness, Unable to Speak Clearly History of same: Yes Place: home Severity: mild Quality: weak Improves With: none Worsens With: none On Anticoagulants: Yes Context: other (started at 1800 this evening ) Associated Symptoms: weakness Treatments Prior to Arrival: none - Related Data Home Medications: Home Medications Medication Instructions Recorded Confirmed Last Taken ALPRAZolam [Xanax TAB] 1 mg PO QID PRN 04/06/17 07/11/17 04/06/17 Hydrochlorothiazide [HCTZ] 25 mg PO QDAY 04/06/17 07/11/17 04/06/17 Potassium Chloride [K-Dur] 10 meq PO BID 04/06/17 07/11/17 04/06/17 Pregabalin [Lyrica] 75 mg PO BID 04/06/17 07/11/17 04/06/17 Quetiapine Fumarate [Seroquel] 300 mg PO HS 04/06/17 07/11/17 04/05/17 risperiDONE [RisperDAL] 4 mg PO BID 04/06/17 07/11/17 04/06/17 Oxycodone HCl [Roxicodone] 30 mg PO TID 07/11/17 07/11/17 Unknown fentaNYL [Fentanyl] 1 patch TRANSDERMA Q72H 07/11/17 07/11/17 Unknown Previous Rx's Medication Instructions Recorded Last Taken Type Clopidogrel [Plavix] 75 mg PO QDAY #30 tablet 02/17/17 04/05/17 Rx Simvastatin [Zocor TAB] 40 mg PO QHS tablet 04/09/17 Unknown Rx lamoTRIgine [LaMICtal] 150 mg PO BID #60 tablet 04/09/17 Unknown Rx levETIRAcetam [Keppra TAB] 500 mg PO BID tablet 07/14/17 Unknown Rx Allergies/Adverse Reactions: Allergies Allergy/AdvReac Type Severity Reaction Status Date / Time atorvastatin calcium Allergy Unknown Verified 09/14/13 17:47 [From Lipitor] aspirin AdvReac Unknown Verified 02/26/14 13:53 ED Review of Systems ROS: Stated complaint: POSSIBLE CVA Other details as noted in HPI Constitutional: weakness Eyes: denies: eye pain, eye discharge, vision change ENT: denies: ear pain, throat pain Cardiovascular: denies: chest pain, palpitations Endocrine: no symptoms reported Gastrointestinal: denies: abdominal pain, nausea, diarrhea Genitourinary: denies: urgency, dysuria, discharge Musculoskeletal: arthralgia, myalgia (left/right knee ) Skin: denies: rash, lesions Neurological: as per HPI, weakness Psychiatric: denies: anxiety, depression Hematological/Lymphatic: denies: easy bleeding, easy bruising ED Past Medical Hx - Past Medical History Hx Hypertension: Yes Hx 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) Hx Heart Attack/AMI: Yes Hx Congestive Heart Failure: Yes (11/2014) Hx Diabetes: No Hx GERD: Yes Hx Seizures: Yes Hx Asthma: No Hx COPD: No Additional medical history: Cardiac arrest 4-5 times during surgery 2006, TIA's , Ca L knee,Irregular heart beat, Lupus - Surgical History Additional Surgical History: 30 surgeries to left lower extremity, hysterectomy, CS - Social History Smoking Status: Current Every Day Smoker Substance Use Type: Alcohol - Medications Home Medications: Home Medications Medication Instructions Recorded Confirmed Last Taken Type Clopidogrel [Plavix] 75 mg PO QDAY #30 tablet 02/17/17 07/11/17 04/05/17 Rx ALPRAZolam [Xanax TAB] 1 mg PO QID PRN 04/06/17 07/11/17 04/06/17 History Hydrochlorothiazide [HCTZ] 25 mg PO QDAY 04/06/17 07/11/17 04/06/17 History Potassium Chloride [K-Dur] 10 meq PO BID 04/06/17 07/11/17 04/06/17 History Pregabalin [Lyrica] 75 mg PO BID 04/06/17 07/11/17 04/06/17 History Quetiapine Fumarate [Seroquel] 300 mg PO HS 04/06/17 07/11/17 04/05/17 History risperiDONE [RisperDAL] 4 mg PO BID 04/06/17 07/11/17 04/06/17 History Simvastatin [Zocor TAB] 40 mg PO QHS tablet 04/09/17 07/11/17 Unknown Rx lamoTRIgine [LaMICtal] 150 mg PO BID #60 tablet 04/09/17 07/11/17 Unknown Rx Oxycodone HCl [Roxicodone] 30 mg PO TID 07/11/17 07/11/17 Unknown History fentaNYL [Fentanyl] 1 patch TRANSDERMA Q72H 07/11/17 07/11/17 Unknown History levETIRAcetam [Keppra TAB] 500 mg PO BID tablet 07/14/17 Unknown Rx ED Neuro Physical Exam - General Limitations: No Limitations General appearance: postictal Suspected Stroke: Yes - Head Head exam: Present: atraumatic, normocephalic - Eye Eye exam: Present: normal appearance - ENT ENT exam: Present: mucous membranes moist - Neck Neck exam: Present: normal inspection - Respiratory Respiratory exam: Present: normal lung sounds bilaterally. Absent: respiratory distress - Cardiovascular Cardiovascular Exam: Present: regular rate, normal rhythm. Absent: systolic murmur, diastolic murmur, rubs, gallop - Extremities Exam Extremities exam: Present: normal inspection - Back Exam Back exam: Present: normal inspection - Neurological Exam Neurological exam: Present: other (left upper/lower extremity weakness, left facial droop, slurred speech ) - NIHSS Assessment Interval: Baseline 1a. Level of Consciousness: alert 1b. LOC Questions: answers correctly 1c. LOC Commands: performs tasks correctly 2. Best Gaze: normal 3. Visual: no visual loss (history of lupus) 4. Facial Palsy: partial paralysis (left) 5b. Motor Arm Right: no drift 5a. Motor Arm Left: drift (left weakness-baseline (hx of cva with left hemiplegia)) 6a. Motor Leg Left: drift (left weakness-(hx of left hemiplegia)) 6b. Motor Leg Right: no drift 7. Limb Ataxia: absent 8. Sensory: normal 9. Best Language: mild/moderate aphasia 10. Dysarthria: mild/moderate dysarthria 11. Extinction/Inattention: no abnormality Total Score: 6 Stroke Severity: Moderate Stroke - Skin Skin exam: Present: warm ED Course Vital Signs 08/29/17 08/29/17 08/29/17 19:15 19:36 22:36 Temperature 99 F Pulse Rate 78 83 Respiratory 16 20 14 Rate Blood Pressure 119/78 Blood Pressure 137/90 [Right] O2 Sat by Pulse 99 99 96 Oximetry - Lab Data Result diagrams: 08/29/17 19:20 08/29/17 19:20 Lab Results 08/29/17 08/29/17 08/29/17 Range/Units 19:20 19:20 19:20 WBC 11.4 H (4.5-11.0) K/mm3 RBC 4.89 (3.65-5.03) M/mm3 Hgb 13.0 (10.1-14.3) gm/dl Hct 40.3 (30.3-42.9) % MCV 82 (79-97) fl MCH 27 L (28-32) pg MCHC 32 (30-34) % RDW 16.5 H (13.2-15.2) % Plt Count 218 (140-440) K/mm3 Lymph % (Auto) 11.3 L (13.4-35.0) % Centre % (Auto) 3.9 (0.0-7.3) % Eos % (Auto) 4.9 H (0.0-4.3) % Baso % (Auto) 1.3 (0.0-1.8) % Lymph # 1.3 (1.2-5.4) K/mm3 Centre # 0.4 (0.0-0.8) K/mm3 Eos # 0.6 H (0.0-0.4) K/mm3 Baso # 0.1 (0.0-0.1) K/mm3 Seg Neutrophils % 78.6 H (40.0-70.0) % Seg Neutrophils # 9.0 H (1.8-7.7) K/mm3 PT 12.8 (12.2-14.9) Sec. INR 0.92 (0.87-1.13) APTT 31.2 (24.2-36.6) Sec. Thrombin Time (15.1-19.6) Sec. Sodium (137-145) mmol/L Potassium (3.6-5.0) mmol/L Chloride (98-107) mmol/L Carbon Dioxide (22-30) mmol/L Anion Gap mmol/L BUN (7-17) mg/dL Creatinine (0.7-1.2) mg/dL Estimated GFR ml/min BUN/Creatinine Ratio % Glucose (65-100) mg/dL Calcium (8.4-10.2) mg/dL Total Bilirubin (0.1-1.2) mg/dL AST (5-40) units/L ALT (7-56) units/L Alkaline Phosphatase (35-129) units/L Total Creatine Kinase (30-135) units/L CK-MB (CK-2) (0.0-4.0) ng/mL CK-MB (CK-2) Rel Index (0-4) Troponin T < 0.010 (0.00-0.029) ng/mL Total Protein (6.3-8.2) g/dL Albumin (3.9-5) g/dL Albumin/Globulin Ratio % HCG, Qual (Negative) Urine Color (Yellow) Urine Turbidity (Clear) Urine pH (5.0-7.0) Ur Specific [place] (1.003-1.030) Urine Protein (Negative) mg/dL Urine Glucose (UA) (Negative) mg/dL Urine Ketones (Negative) mg/dL Urine Blood (Negative) Urine Nitrite (Negative) Urine Bilirubin (Negative) Urine Urobilinogen (<2.0) mg/dL Ur Leukocyte Esterase (Negative) Urine WBC (Auto) (0.0-6.0) /HPF Urine RBC (Auto) (0.0-6.0) /HPF U Epithel Cells (Auto) (0-13.0) /HPF Urine Mucus /HPF Urine Opiates Screen Urine Methadone Screen Ur Barbiturates Screen Ur Phencyclidine Scrn Ur Amphetamines Screen U Benzodiazepines Scrn Urine Cocaine Screen U Marijuana (THC) Screen Drugs of Abuse Note 08/29/17 08/29/17 08/29/17 Range/Units 19:20 19:20 19:20 WBC (4.5-11.0) K/mm3 RBC (3.65-5.03) M/mm3 Hgb (10.1-14.3) gm/dl Hct (30.3-42.9) % MCV (79-97) fl MCH (28-32) pg MCHC (30-34) % RDW (13.2-15.2) % Plt Count (140-440) K/mm3 Lymph % (Auto) (13.4-35.0) % Centre % (Auto) (0.0-7.3) % Eos % (Auto) (0.0-4.3) % Baso % (Auto) (0.0-1.8) % Lymph # (1.2-5.4) K/mm3 Centre # (0.0-0.8) K/mm3 Eos # (0.0-0.4) K/mm3 Baso # (0.0-0.1) K/mm3 Seg Neutrophils % (40.0-70.0) % Seg Neutrophils # (1.8-7.7) K/mm3 PT (12.2-14.9) Sec. INR (0.87-1.13) APTT (24.2-36.6) Sec. Thrombin Time 14.8 L (15.1-19.6) Sec. Sodium 138 (137-145) mmol/L Potassium 3.6 (3.6-5.0) mmol/L Chloride 99.1 (98-107) mmol/L Carbon Dioxide 25 (22-30) mmol/L Anion Gap 18 mmol/L BUN 11 (7-17) mg/dL Creatinine 0.5 L (0.7-1.2) mg/dL Estimated GFR > 60 ml/min BUN/Creatinine Ratio 22 % Glucose 103 H (65-100) mg/dL Calcium 9.5 (8.4-10.2) mg/dL Total Bilirubin 0.50 (0.1-1.2) mg/dL AST 11 (5-40) units/L ALT 18 (7-56) units/L Alkaline Phosphatase 70 (35-129) units/L Total Creatine Kinase (30-135) units/L CK-MB (CK-2) (0.0-4.0) ng/mL CK-MB (CK-2) Rel Index (0-4) Troponin T (0.00-0.029) ng/mL Total Protein 7.4 (6.3-8.2) g/dL Albumin 4.4 (3.9-5) g/dL Albumin/Globulin Ratio 1.5 % HCG, Qual Negative (Negative) Urine Color (Yellow) Urine Turbidity (Clear) Urine pH (5.0-7.0) Ur Specific [place] (1.003-1.030) Urine Protein (Negative) mg/dL Urine Glucose (UA) (Negative) mg/dL Urine Ketones (Negative) mg/dL Urine Blood (Negative) Urine Nitrite (Negative) Urine Bilirubin (Negative) Urine Urobilinogen (<2.0) mg/dL Ur Leukocyte Esterase (Negative) Urine WBC (Auto) (0.0-6.0) /HPF Urine RBC (Auto) (0.0-6.0) /HPF U Epithel Cells (Auto) (0-13.0) /HPF Urine Mucus /HPF Urine Opiates Screen Urine Methadone Screen Ur Barbiturates Screen Ur Phencyclidine Scrn Ur Amphetamines Screen U Benzodiazepines Scrn Urine Cocaine Screen U Marijuana (THC) Screen Drugs of Abuse Note 08/29/17 08/29/17 08/29/17 Range/Units 19:20 20:18 20:18 WBC (4.5-11.0) K/mm3 RBC (3.65-5.03) M/mm3 Hgb (10.1-14.3) gm/dl Hct (30.3-42.9) % MCV (79-97) fl MCH (28-32) pg MCHC (30-34) % RDW (13.2-15.2) % Plt Count (140-440) K/mm3 Lymph % (Auto) (13.4-35.0) % Centre % (Auto) (0.0-7.3) % Eos % (Auto) (0.0-4.3) % Baso % (Auto) (0.0-1.8) % Lymph # (1.2-5.4) K/mm3 Centre # (0.0-0.8) K/mm3 Eos # (0.0-0.4) K/mm3 Baso # (0.0-0.1) K/mm3 Seg Neutrophils % (40.0-70.0) % Seg Neutrophils # (1.8-7.7) K/mm3 PT (12.2-14.9) Sec. INR (0.87-1.13) APTT (24.2-36.6) Sec. Thrombin Time (15.1-19.6) Sec. Sodium (137-145) mmol/L Potassium (3.6-5.0) mmol/L Chloride (98-107) mmol/L Carbon Dioxide (22-30) mmol/L Anion Gap mmol/L BUN (7-17) mg/dL Creatinine (0.7-1.2) mg/dL Estimated GFR ml/min BUN/Creatinine Ratio % Glucose (65-100) mg/dL Calcium (8.4-10.2) mg/dL Total Bilirubin (0.1-1.2) mg/dL AST (5-40) units/L ALT (7-56) units/L Alkaline Phosphatase (35-129) units/L Total Creatine Kinase 166 H (30-135) units/L CK-MB (CK-2) 2.3 (0.0-4.0) ng/mL CK-MB (CK-2) Rel Index 1.3 (0-4) Troponin T (0.00-0.029) ng/mL Total Protein (6.3-8.2) g/dL Albumin (3.9-5) g/dL Albumin/Globulin Ratio % HCG, Qual (Negative) Urine Color Yellow (Yellow) Urine Turbidity Clear (Clear) Urine pH 5.0 (5.0-7.0) Ur Specific [place] 1.013 (1.003-1.030) Urine Protein 30 mg/dl (Negative) mg/dL Urine Glucose (UA) Neg (Negative) mg/dL Urine Ketones Neg (Negative) mg/dL Urine Blood Sm (Negative) Urine Nitrite Neg (Negative) Urine Bilirubin Neg (Negative) Urine Urobilinogen < 2.0 (<2.0) mg/dL Ur Leukocyte Esterase Neg (Negative) Urine WBC (Auto) < 1.0 (0.0-6.0) /HPF Urine RBC (Auto) 4.0 (0.0-6.0) /HPF U Epithel Cells (Auto) 1.0 (0-13.0) /HPF Urine Mucus Few /HPF Urine Opiates Screen Presumptive negative Urine Methadone Screen Presumptive negative Ur Barbiturates Screen Presumptive negative Ur Phencyclidine Scrn Presumptive negative Ur Amphetamines Screen Presumptive negative U Benzodiazepines Scrn Presumptive negative Urine Cocaine Screen Presumptive positive U Marijuana (THC) Screen Presumptive negative Drugs of Abuse Note Disclamer - EKG Data -: EKG Interpreted by Me EKG shows normal: sinus rhythm Rate: normal When compared to previous EKG there are: previous EKG unavailable Interpretation: no acute changes, normal EKG - Radiology Data Radiology results: report reviewed (CT head-negative, chest radiograph-negative ) - Medical Decision Making CVA TIA Cocaine abuse Chest pain - Differential Diagnosis CVA, TIA, drug abuse, chest pain Critical care attestation.: If time is entered above; I have spent that time in minutes in the direct care of this critically ill patient, excluding procedure time. ED Disposition Clinical Impression: CVA (cerebral vascular accident), Chest pain, Chronic pain, Cocaine abuse TIA (transient ischemic attack) Qualifiers: Transient cerebral ischemia type: other Qualified Code(s): G45.8 - Other transient cerebral ischemic attacks and related syndromes Disposition: DC-09 OP ADMIT IP TO THIS HOSP Is pt being admited?: Yes Does the pt Need Aspirin: No Condition: Stable Time of Disposition: 00:32
[2017-08-29 20:00] LABS: Creatine Kinase MB 2.3 ng/mL (0.0-4.0)
[2017-08-29 20:02] LABS: Alanine Aminotransferase 18 units/L (7-56); Albumin 4.4 g/dL (3.9-5); BUN/Creatinine Ratio 22; Blood Urea Nitrogen 11 mg/dL (7-17); Calcium 9.5 mg/dL (8.4-10.2); Hemolysis Index 4
[2017-08-29 20:07] LABS: Partial Thromboplastin Time 31.2 Sec. (24.2-36.6)
[2017-08-29] MEDS ORDERED: KEPPRA 1,000 MG in NACL 0.9% 100 ML IV ONE ×2 (20:07→21:00)
[2017-08-29] MEDS ORDERED: KEPPRA 1,000 MG/NS 0.75% 100ML 1,000 MG/100 ML BAG IV ONE ×2 (21:00→23:25)
[2017-08-29 21:07] LABS: Bilirubin,Urine NEG (Negative); Blood,Urine SM (Negative); Color,Urine Yellow (Yellow); Mucus,Urine FEW /HPF; Nitrite,Urine NEG (Negative); Urobilinogen,Urine < 2.0 mg/dL (<2.0); WBC,Urine < 1.0 /HPF (0.0-6.0)
[2017-08-29 21:34] LABS: Amphetamine Screen,Urine PRESUMPTIVE NEGATIVE; Benzodiazepines Screen,Urine PRESUMPTIVE NEGATIVE; Cannabinoid Screen,Urine PRESUMPTIVE NEGATIVE; Methadone Screen,Urine PRESUMPTIVE NEGATIVE; Opiate Screen,Urine PRESUMPTIVE NEGATIVE
[2017-08-29 21:47] LABS: Cocaine Screen,Urine PRESUMPTIVE POSITIVE
--- NOTE | 2017-08-29 22:09 | XRay Report ---
FINAL REPORT PROCEDURE: XR CHEST 1V AP TECHNIQUE: Chest radiograph anteroposterior view. CPT 78396 HISTORY: chest pain COMPARISON: No prior studies are available for comparison. FINDINGS: Heart: Normal. Mediastinum/Vessels: Normal. Lungs/Pleural space: No infiltrate, effusion, or pneumothorax. Bony thorax: No acute osseous abnormality. Life support devices: None. IMPRESSION: No radiographic evidence of acute cardiopulmonary abnormality.
[2017-08-29] MEDS ORDERED: NITROSTAT SL ONE (22:47)
[2017-08-29] MEDS ORDERED: XYLOCAINE 2% INFILTRATI ONE (23:04)
--- NOTE | 2017-08-29 23:42 | History and Physical Report ---
History of Present Illness Date of examination: 08/29/17 History of present illness: 51-year-old woman with a history of lupu Hypertension, coronary artery disease, GERD TIA, seizure comes emergency room for evaluation. She states she had a headache for 2 weeks, she has a history of migraine, today she became dizzy, developed left facial droop and left-sided weakness , symptoms are now resolved Review Of Systems: Constitutional: no weight loss Ears, eyes, nose, mouth and throat: no nasal congestion, no nasal discharge, no sinus pressure, blurry vision, diplopia Neck: No neck pain or rigidity. Cardiovascular: No chest pain, palpitations Respiratory: No shortness of breath, cough Gastrointestinal: No abdominal pain, hematochezia Genitourinary : no dysuria, frequency , hematuria Musculoskeletal: no muscle ache Integumentary: no rash, no pruritis Neurological: no parathesias Endocrine: no cold or heat intolerance, no polyuria or polydipsia Hematologic/Lymphatic: no easy bruising, no easy bleeding, no gland swelling Allergic/Immunologic: no urticaria, no angioedema. PAST SURGICAL HISTORY: Hysterectomy, , 30 surgery of the knee, cholecystectomy SOCIAL HISTORY: Denies alcohol, tobacco, drugs FAMILY HISTORY: Hypertension Medications and Allergies Allergies Allergy/AdvReac Type Severity Reaction Status Date / Time atorvastatin calcium Allergy Unknown Verified 09/14/13 17:47 [From Lipitor] aspirin AdvReac Unknown Verified 02/26/14 13:53 Home Medications Medication Instructions Recorded Confirmed Last Taken Type Clopidogrel [Plavix] 75 mg PO QDAY #30 tablet 02/17/17 07/11/17 04/05/17 Rx ALPRAZolam [Xanax TAB] 1 mg PO QID PRN 04/06/17 07/11/17 04/06/17 History Hydrochlorothiazide [HCTZ] 25 mg PO QDAY 04/06/17 07/11/17 04/06/17 History Potassium Chloride [K-Dur] 10 meq PO BID 04/06/17 07/11/17 04/06/17 History Pregabalin [Lyrica] 75 mg PO BID 04/06/17 07/11/17 04/06/17 History Quetiapine Fumarate [Seroquel] 300 mg PO HS 04/06/17 07/11/17 04/05/17 History risperiDONE [RisperDAL] 4 mg PO BID 04/06/17 07/11/17 04/06/17 History Simvastatin [Zocor TAB] 40 mg PO QHS tablet 04/09/17 07/11/17 Unknown Rx lamoTRIgine [LaMICtal] 150 mg PO BID #60 tablet 04/09/17 07/11/17 Unknown Rx Oxycodone HCl [Roxicodone] 30 mg PO TID 07/11/17 07/11/17 Unknown History fentaNYL [Fentanyl] 1 patch TRANSDERMA Q72H 07/11/17 07/11/17 Unknown History levETIRAcetam [Keppra TAB] 500 mg PO BID tablet 07/14/17 Unknown Rx Exam - Physical Exam Narrative exam: Gen. appearance: Patient lying in bed in no acute distress HEENT: Normocephalic/atraumatic, pupils equal round reactive to light, extra occular movement intact, no scleral icterus, no JVD or thyromegaly or nodule, neck is supple, mucous membrane moist, no erythema or exudate Heart: S1-S2, regular rate and rhythm Lungs: Clear to auscultation bilateral breathing comfortable Abdomen: Positive bowel sounds, nontender, nondistended, no organomegaly Extremities: No edema, cyanosis, clubbing Neuro:: Oriented 3 , cranial nerves II-12 intact, speech, motor - poor effort Skin: No rash, nodules, warm dry - Constitutional Vitals: Temp Pulse Resp BP Pulse Ox 99 F 83 14 137/90 96 08/29/17 19:15 08/29/17 22:36 08/29/17 22:36 08/29/17 22:36 08/29/17 22:36 Results - Labs CBC & Chem 7: 08/29/17 19:20 08/29/17 19:20 Labs: Abnormal lab results 08/29/17 08/29/17 08/29/17 Range/Units 19:20 19:20 19:20 WBC 11.4 H (4.5-11.0) K/mm3 MCH 27 L (28-32) pg RDW 16.5 H (13.2-15.2) % Lymph % (Auto) 11.3 L (13.4-35.0) % Eos % (Auto) 4.9 H (0.0-4.3) % Eos # 0.6 H (0.0-0.4) K/mm3 Seg Neutrophils % 78.6 H (40.0-70.0) % Seg Neutrophils # 9.0 H (1.8-7.7) K/mm3 Thrombin Time 14.8 L (15.1-19.6) Sec. Creatinine 0.5 L (0.7-1.2) mg/dL Glucose 103 H (65-100) mg/dL Total Creatine Kinase (30-135) units/L 08/29/17 Range/Units 19:20 WBC (4.5-11.0) K/mm3 MCH (28-32) pg RDW (13.2-15.2) % Lymph % (Auto) (13.4-35.0) % Eos % (Auto) (0.0-4.3) % Eos # (0.0-0.4) K/mm3 Seg Neutrophils % (40.0-70.0) % Seg Neutrophils # (1.8-7.7) K/mm3 Thrombin Time (15.1-19.6) Sec. Creatinine (0.7-1.2) mg/dL Glucose (65-100) mg/dL Total Creatine Kinase 166 H (30-135) units/L - Imaging and Cardiology EKG: image reviewed Chest x-ray: image reviewed Assessment and Plan Assessment TIA Vs complicated migraine Hypertension Coronary artery disease Lupus Seizure Plan Admits medicine Obtain MRI of the head MRA, carotid Doppler, echo done in June Do neurochecks, swallow screen, consult neuro, PT/OT Start Plavix, no statin, patient allergic , start DVT prophylaxis Continue appropriate outpatient medications IV hydralazine as needed for blood pressure control
[2017-08-30] MEDS ORDERED: XANAX PO PRN (01:09)
[2017-08-30] MEDS ORDERED: APRESOLINE IV PRN (01:10)
[2017-08-30] MEDS ORDERED: DULCOLAX PR PRN (01:10)
[2017-08-30] MEDS ORDERED: SODIUM CHLORIDE FLUSH SYRINGE 10 ML IV PRN (01:10)
[2017-08-30] MEDS ORDERED: TYLENOL PO PRN (01:10)
[2017-08-30] MEDS ORDERED: ZOFRAN IV PRN (01:10)
[2017-08-30] MEDS ORDERED: MILK OF MAGNESIA PO PRN (01:10)
[2017-08-30 07:44] VITALS: BP 119/72
--- NOTE | 2017-08-30 08:49 | Discharge Summary ---
Providers - Providers Date of Admission: 08/29/17 23:43 Attending physician: CLARE AG MD 08/30/17 Consult to Physician [CONS] Routine Consulting Provider: RADHA SEGAL Reason For Exam: tia 08/30/17 01:10 Occupational Therapy Evaluate and Treat [CONS] Routine Comment: Reason For Exam: Neuro deficits Physical Therapy Evaluation and Treat [CONS] Routine Comment: Reason For Exam: Neuro deficits Primary care physician: JJ LEWIS Hospitalization Reason for admission: pseudoseizures Condition: Stable Hospital course: 51-year-old woman with a history of lupu Hypertension, coronary artery disease, GERD TIA, seizure comes emergency room for evaluation. She states she had a headache for 2 weeks, she has a history of migraine, today she became dizzy, developed left facial droop and left-sided weakness , symptoms are now resolved. While in the hospital the patient was asked in for IV pain medication. When this was denied she began to him he take a stammering of voice that in the last seizure was coming back on her TIA was coming back. She has had multiple evaluations included a repeated MRI for CVA and has been negative. When asked to give her her pain medication has symptoms of several resolved. I did advise her that she needs to follow up with her pain specialist. Physical exam was unremarkable specialist promised him on a pain medication which I did not give. I also respect to her extensively about cocaine use and abuse need to quit she verbalized understanding all is agreeable for discharge. Her medications but has not been taking them because they make her feel loopy advised her to have a discussion with her primary care physician as she could not identify which medication led to such described effect. she is encouraged to continue her ASA and statin Discharge disorder Pseudoseziure TIA Near syncope Hypertension Coronary artery disease Cocain abuse. Lupus Seizure Disposition: OP ADMIT IP TO THIS HOSP Time spent for discharge: 35 mins Core Measure Documentation - Palliative Care Palliative Care/ Comfort Measures: Not Applicable - Core Measures Any of the following diagnoses?: none - VTE Discharge Requirements Deep Vein Thrombosis/Pulmonary Embolism Present on Admission: No Exam - Physical Exam Narrative exam: VITAL SIGNS: Reviewed. GENERAL: The patient appeared well nourished and normally developed. Vital signs as documented. HEAD: No signs of head trauma. EYES: Pupils are equal. Extraocular motions intact. EARS: Hearing grossly intact. MOUTH: Oropharynx is normal. NECK: No adenopathy, no JVD. CHEST: Chest with clear breath sounds bilaterally. No wheezes, rales, or rhonchi. CARDIAC: Regular rate and rhythm. S1 and S2, without murmurs, gallops, or rubs. VASCULAR: No Edema. Peripheral pulses normal and equal in all extremities. ABDOMEN: Soft, without detectable tenderness. No sign of distention. No rebound or guarding, and no masses palpated. Bowel Sounds normal. MUSCULOSKELETAL: Good range of motion of all major joints. Extremities without clubbing, cyanosis or edema. NEUROLOGIC EXAM: Alert and oriented x 3. No focal sensory or strength deficits. Speech normal. Follows commands. PSYCHIATRIC: Mood normal. SKIN: No rash or lesions. - Constitutional Vitals: Temp Pulse Resp BP Pulse Ox 98.3 F 74 18 119/72 100 08/30/17 07:43 08/30/17 07:43 08/30/17 07:43 08/30/17 07:43 08/30/17 07:43 Plan Activity: advance as tolerated, fall precautions Diet: low fat Special Instructions: smoking cessation, other (quit substance abuse) Additional Instructions: Follow with primary Neurologist and Pain specilist Follow up with: JJ LEWIS MD [Primary Care Provider] - 3-5 Days
[2017-08-30] MEDS ORDERED: RisperDAL PO SCH ×2 (10:00)
[2017-08-30] MEDS ORDERED: LYRICA PO SCH (10:00)
[2017-08-30] MEDS ORDERED: PLAVIX PO SCH (10:00)
[2017-08-30] MEDS ORDERED: NON-FORMULARY (Risperidone [Risperdal] 4 MG) PO SCH (10:00)
[2017-08-30] MEDS ORDERED: NON-FORMULARY (Lamotrigine [Lamictal] 150 MG) PO SCH (10:00)
[2017-08-30] MEDS ORDERED: KEPPRA PO SCH (10:00)
[2017-08-30] MEDS ORDERED: LaMICtal PO SCH (10:00)
== END 2017-08-30 09:15 | disposition home or self-care (01) ==
LOC: ED 18:48 → UNDOADMIN 23:43 → 4A 23:43 → ED 08-30 09:15
DX: I63.9 Cerebral infarction, unspecified (principal); G45.8 Other transient cerebral ischemic attacks and related syndromes; G89.29 Other chronic pain; F14.10 Cocaine abuse, uncomplicated; I11.0 Hypertensive heart disease with heart failure; I50.9 Heart failure, unspecified; K21.9 Gastro-esophageal reflux disease without esophagitis; F17.200 Nicotine dependence, unspecified, uncomplicated; M32.9 Systemic lupus erythematosus, unspecified; Z90.710 Acquired absence of both cervix and uterus; Z88.8 Allergy status to other drugs, medicaments and biological substances; Z88.6 Allergy status to analgesic agent
CPT/HCPCS: 36415; 70450; 71045; 80053; 80307; 81001; 82550; 82553; 84484; 84703; 85025; 85610; 85670; 85730; 93005; 93010; 96365; 99285; J1953

== ENCOUNTER 2017-09-29 14:38 | Emergency (ER) | payer MEDICAID ==
[2017-09-29 15:08] LABS: Basophils # (Auto) 0.1 K/mm3 (0.0-0.1); Basophils % (Auto) 0.6 % (0.0-1.8); Eosinophils # (Auto) 0.6 K/mm3 (0.0-0.4); Eosinophils % (Auto) 5.1 % (0.0-4.3); Hematocrit 39.2 % (30.3-42.9); Hemoglobin 13.1 gm/dl (10.1-14.3); Lymphocytes % (Auto) 26.4 % (13.4-35.0); Mean Corpuscular HGB Conc 33 % (30-34); Mean Corpuscular Hemoglobin 28 pg (28-32); Mean Corpuscular Volume 84 fl (79-97); Monocytes # (Auto) 0.7 K/mm3 (0.0-0.8); Monocytes % (Auto) 5.9 % (0.0-7.3); Platelet Count 230 K/mm3 (140-440); Red Blood Count 4.67 M/mm3 (3.65-5.03); Red Cell Distribution Width 16.6 % (13.2-15.2)
[2017-09-29 15:18] LABS: INR 0.88 (0.87-1.13); Partial Thromboplastin Time 28.5 Sec. (24.2-36.6); Thrombin Time 15.4 Sec. (15.1-19.6)
[2017-09-29 15:29] LABS: BUN/Creatinine Ratio 13; Blood Urea Nitrogen 10 mg/dL (7-17); Calcium 9.5 mg/dL (8.4-10.2); Hemolysis Index 21
--- NOTE | 2017-09-29 15:43 | Emergency Department Report ---
ED Neuro Deficit HPI - General Chief Complaint: Neuro Symptoms/Deficit Stated Complaint: LUPUS Time Seen by Provider: 09/29/17 15:25 Source: patient Mode of arrival: Ambulatory Limitations: No Limitations - History of Present Illness Initial Comments: Patient complains of slurred speech that started an hour before presentation to the emergency department. Patient states she has a history of deficits on the left side from prior strokes and TIAs. She denies any new onset weakness. Patient also denies chest pain shortness of breath or headaches. Patient initially told EMS and nursing staff that her symptoms started yesterday but upon me examining the patient she stated my symptoms actually started an hour ago -: Sudden Presenting Symptoms: Present: Unable to Speak Clearly History of same: Yes Place: home Severity: mild Improves With: none Worsens With: none On Anticoagulants: No (patient takes Plavix which is an antiplatelet medication) Associated Symptoms: denies other symptoms - Related Data Home Medications: Home Medications Medication Instructions Recorded Confirmed Last Taken ALPRAZolam [Xanax TAB] 1 mg PO QID PRN 04/06/17 07/11/17 04/06/17 Hydrochlorothiazide [HCTZ] 25 mg PO QDAY 04/06/17 07/11/17 04/06/17 Potassium Chloride [K-Dur] 10 meq PO BID 04/06/17 07/11/17 04/06/17 Pregabalin [Lyrica] 75 mg PO BID 04/06/17 07/11/17 04/06/17 Quetiapine Fumarate [Seroquel] 300 mg PO HS 04/06/17 07/11/17 04/05/17 risperiDONE [RisperDAL] 4 mg PO BID 04/06/17 07/11/17 04/06/17 Oxycodone HCl [Roxicodone] 30 mg PO TID 07/11/17 07/11/17 Unknown Previous Rx's Medication Instructions Recorded Last Taken Type Clopidogrel [Plavix] 75 mg PO QDAY #30 tablet 02/17/17 04/05/17 Rx Simvastatin [Zocor TAB] 40 mg PO QHS tablet 04/09/17 Unknown Rx lamoTRIgine [LaMICtal] 150 mg PO BID #60 tablet 04/09/17 Unknown Rx levETIRAcetam [Keppra TAB] 500 mg PO BID tablet 07/14/17 Unknown Rx Allergies/Adverse Reactions: Allergies Allergy/AdvReac Type Severity Reaction Status Date / Time atorvastatin calcium Allergy Unknown Verified 09/14/13 17:47 [From Lipitor] aspirin AdvReac Unknown Verified 02/26/14 13:53 ED Review of Systems ROS: Stated complaint: LUPUS Other details as noted in HPI Constitutional: denies: chills, fever Eyes: denies: eye pain, eye discharge, vision change ENT: denies: ear pain, throat pain Respiratory: denies: cough, shortness of breath, wheezing Cardiovascular: denies: chest pain, palpitations Endocrine: no symptoms reported Gastrointestinal: denies: abdominal pain, nausea, diarrhea Genitourinary: denies: urgency, dysuria, discharge Musculoskeletal: denies: back pain, joint swelling, arthralgia Skin: denies: rash, lesions Neurological: other (slurred speech). 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) Hx Heart Attack/AMI: Yes Hx Congestive Heart Failure: Yes (11/2014) Hx Diabetes: No Hx GERD: Yes Hx Seizures: Yes Hx Asthma: No Hx COPD: No Additional medical history: Cardiac arrest 4-5 times during surgery 2006, TIA's , Ca L knee,Irregular heart beat, Lupus - Surgical History Past Surgical History?: Yes Additional Surgical History: 30 surgeries to left lower extremity, hysterectomy, CS - Social History Smoking Status: Current Every Day Smoker Substance Use Type: Alcohol, Prescribed - Medications Home Medications: Home Medications Medication Instructions Recorded Confirmed Last Taken Type Clopidogrel [Plavix] 75 mg PO QDAY #30 tablet 02/17/17 07/11/17 04/05/17 Rx ALPRAZolam [Xanax TAB] 1 mg PO QID PRN 04/06/17 07/11/17 04/06/17 History Hydrochlorothiazide [HCTZ] 25 mg PO QDAY 04/06/17 07/11/17 04/06/17 History Potassium Chloride [K-Dur] 10 meq PO BID 04/06/17 07/11/17 04/06/17 History Pregabalin [Lyrica] 75 mg PO BID 04/06/17 07/11/1717 History Quetiapine Fumarate [Seroquel] 300 mg PO HS 04/06/17 07/11/17 04/05/17 History risperiDONE [RisperDAL] 4 mg PO BID 04/06/17 07/11/17 04/06/17 History Simvastatin [Zocor TAB] 40 mg PO QHS tablet 04/09/17 07/11/17 Unknown Rx lamoTRIgine [LaMICtal] 150 mg PO BID #60 tablet 04/09/17 07/11/17 Unknown Rx Oxycodone HCl [Roxicodone] 30 mg PO TID 07/11/17 07/11/17 Unknown History levETIRAcetam [Keppra TAB] 500 mg PO BID tablet 07/14/17 Unknown Rx ED Neuro Physical Exam - General Limitations: No Limitations General appearance: alert, in no apparent distress Suspected Stroke: No - Head Head exam: Present: atraumatic, normocephalic - Eye Eye exam: Present: normal appearance - ENT ENT exam: Present: mucous membranes moist - Neck Neck exam: Present: normal inspection - Respiratory Respiratory exam: Present: normal lung sounds bilaterally. Absent: respiratory distress - Cardiovascular Cardiovascular Exam: Present: regular rate, normal rhythm. Absent: systolic murmur, diastolic murmur, rubs, gallop - GI/Abdominal GI/Abdominal exam: Present: soft, normal bowel sounds - Extremities Exam Extremities exam: Present: normal inspection - Expanded Upper Extremity Exam Left General: Present: other (patient has residual left upper extremity weakness from prior CVA) - Back Exam Back exam: Present: normal inspection - Neurological Exam Neurological exam: Present: alert, oriented X3, CN II-XII intact, other ( slurred speech) - NIHSS 1a. Level of Consciousness: alert 1b. LOC Questions: answers correctly 1c. LOC Commands: performs tasks correctly 2. Best Gaze: normal 3. Visual: no visual loss 4. Facial Palsy: normal symmetrical movement 5b. Motor Arm Right: no drift 5a. Motor Arm Left: no drift (but not able to completely performed due to the patient's prior weakness from previous CVA) 6a. Motor Leg Left: no drift 6b. Motor Leg Right: no drift 8. Sensory: normal 9. Best Language: mild/moderate aphasia 10. Dysarthria: normal 11. Extinction/Inattention: no abnormality - Psychiatric Psychiatric exam: Present: normal affect, normal mood - Skin Skin exam: Present: warm, dry, intact, normal color. Absent: rash ED Course Vital Signs 09/29/17 09/29/17 09/29/17 14:42 15:31 15:45 Temperature 97.3 F L Pulse Rate 92 H 79 82 Respiratory 18 11 L 8 L Rate Blood Pressure 170/96 172/100 121/76 O2 Sat by Pulse 98 96 95 Oximetry 09/29/17 09/29/17 16:15 16:30 Temperature Pulse Rate 71 71 Respiratory 13 21 Rate Blood Pressure 147/86 152/73 O2 Sat by Pulse 100 97 Oximetry - Lab Data Result diagrams: 09/29/17 14:58 09/29/17 14:58 Lab Results 09/29/17 09/29/17 09/29/17 Range/Units 14:58 14:58 14:58 WBC 11.2 H (4.5-11.0) K/mm3 RBC 4.67 (3.65-5.03) M/mm3 Hgb 13.1 (10.1-14.3) gm/dl Hct 39.2 (30.3-42.9) % MCV 84 (79-97) fl MCH 28 (28-32) pg MCHC 33 (30-34) % RDW 16.6 H (13.2-15.2) % Plt Count 230 (140-440) K/mm3 Lymph % (Auto) 26.4 (13.4-35.0) % [place] % (Auto) 5.9 (0.0-7.3) % Eos % (Auto) 5.1 H (0.0-4.3) % Baso % (Auto) 0.6 (0.0-1.8) % Lymph # 3.0 (1.2-5.4) K/mm3 [place] # 0.7 (0.0-0.8) K/mm3 Eos # 0.6 H (0.0-0.4) K/mm3 Baso # 0.1 (0.0-0.1) K/mm3 Seg Neutrophils % 62.0 (40.0-70.0) % Seg Neutrophils # 6.9 (1.8-7.7) K/mm3 PT 12.4 (12.2-14.9) Sec. INR 0.88 (0.87-1.13) APTT 28.5 (24.2-36.6) Sec. Thrombin Time 15.4 (15.1-19.6) Sec. Sodium 141 (137-145) mmol/L Potassium 3.7 (3.6-5.0) mmol/L Chloride 96.7 L (98-107) mmol/L Carbon Dioxide 27 (22-30) mmol/L Anion Gap 21 mmol/L BUN 10 (7-17) mg/dL Creatinine 0.8 (0.7-1.2) mg/dL Estimated GFR > 60 ml/min BUN/Creatinine Ratio 13 % Glucose 113 H (65-100) mg/dL Calcium 9.5 (8.4-10.2) mg/dL Troponin T < 0.010 (0.00-0.029) ng/mL - Medical Decision Making Initially when I examined the patient see discussed with me that she has slurred speech for an hour but the patient told EMS and her nurse that she started having slurred speech yesterday Patient was examined by telephone neuro and at this time and do not believe that the patient have a neurological event and she has not a TPA candidate. During her exam by the neurologist the patient had an episode of convulsions and /or the convulsions she was able to answer questions and cooperate with the physical exam On reevaluation of the patient at 5:45 PM she endorses to me at this time that she has slurred speech from previous CVAs and this is not new Patient instructed to continue to take her Plavix At since 13 p.m. while disposition is being done the patient has left the emergency department and is sitting in the ambulance bay smoking a cigarette Critical care attestation.: If time is entered above; I have spent that time in minutes in the direct care of this critically ill patient, excluding procedure time. ED Disposition Clinical Impression: Slurring of speech Disposition: DC-01 TO HOME OR SELFCARE Is pt being admited?: No Condition: Stable Referrals: PRIMARY MD SANDY [Primary Care Provider] - 3-5 Days THERESA MORRISON MD [Referring] - 3-5 Days Time of Disposition: 18:14
--- NOTE | 2017-09-29 16:02 | Cat Scan Report ---
FINAL REPORT EXAM: CT HEAD/BRAIN WO CON HISTORY: CVA s/s started yesterday TECHNIQUE: CT examination of the head without IV contrast PRIORS: 08/29/2017 FINDINGS: Metal artifact from the patient's glasses limits the examination. No acute air-fluid level visualized in the included air-filled sinuses. Slight mucosal thickening maxillary sinuses. Small polyp or retention cyst left maxillary sinus alveolar recess. Bone windows demonstrate no acute fracture. The brain is without mass, mass effect, hemorrhage, or acute infarct. There is no extra-axial intracranial bleed, brain bleed, or midline shift. The ventricles and sulci are age-appropriate. IMPRESSION: No acute CVA, intracranial bleed, or brain mass
[2017-09-29 18:27] VITALS: BP 135/72
== END 2017-09-29 18:33 | disposition home or self-care (01) ==
LOC: ED 14:38
DX: R47.81 Slurred speech (principal); I10 Essential (primary) hypertension; I25.2 Old myocardial infarction; R56.9 Unspecified convulsions; F17.200 Nicotine dependence, unspecified, uncomplicated; Z86.73 Personal history of transient ischemic attack (TIA), and cerebral infarction without residual deficits; K21.9 Gastro-esophageal reflux disease without esophagitis; Z88.6 Allergy status to analgesic agent; Z88.8 Allergy status to other drugs, medicaments and biological substances
CPT/HCPCS: 36415; 70450; 80048; 84484; 85025; 85610; 85670; 85730; 93005; 93010

== ENCOUNTER 2017-10-25 21:21 | Emergency (ER) | payer MEDICAID ==
[2017-10-25] MEDS ORDERED: ASPIRIN PO ONE (22:17)
[2017-10-25 22:41] LABS: Basophils % (Auto) 0.3 % (0.0-1.8); Eosinophils # (Auto) 0.6 K/mm3 (0.0-0.4); Eosinophils % (Auto) 4.9 % (0.0-4.3); Hematocrit 38.9 % (30.3-42.9); Hemoglobin 12.9 gm/dl (10.1-14.3); Lymphocytes % (Auto) 16.1 % (13.4-35.0); Mean Corpuscular HGB Conc 33 % (30-34); Mean Corpuscular Hemoglobin 28 pg (28-32); Mean Corpuscular Volume 85 fl (79-97); Monocytes # (Auto) 0.6 K/mm3 (0.0-0.8); Monocytes % (Auto) 4.6 % (0.0-7.3); Platelet Count 237 K/mm3 (140-440); Red Cell Distribution Width 16.7 % (13.2-15.2)
[2017-10-25 22:52] LABS: BUN/Creatinine Ratio 20; Blood Urea Nitrogen 14 mg/dL (7-17); Calcium 9.2 mg/dL (8.4-10.2); Hemolysis Index 2
[2017-10-26] MEDS ORDERED: PERCOCET 5/325 PO ONE (01:57)
--- NOTE | 2017-10-26 01:57 | Emergency Department Report ---
ED General Adult HPI - General Chief complaint: Chest Pain Stated complaint: CP Time Seen by Provider: 10/26/17 01:29 Source: patient Mode of arrival: Ambulatory Limitations: No Limitations - History of Present Illness Initial comments: 52 yo female presents with chest pain and bilateral leg tenderness. She was evaluated by a new physician today Dr. Ma for routine new pt visit. She was referred to ER because her "heart has gotten bigger". She has mild left chest pain worse with movement present for 2 days. Denies dyspnea. No fever. No cough. Bilateral leg tenderness present for one week with mild swelling. Recently stopped Lyrica due to hair loss. Followed by pain management. - Related Data Home Medications Medication Instructions Recorded Confirmed Last Taken ALPRAZolam [Xanax TAB] 1 mg PO QID PRN 04/06/17 07/11/17 04/06/17 Hydrochlorothiazide [HCTZ] 25 mg PO QDAY 04/06/17 07/11/17 04/06/17 Potassium Chloride [K-Dur] 10 meq PO BID 04/06/17 07/11/17 04/06/17 Pregabalin [Lyrica] 75 mg PO BID 04/06/17 07/11/17 04/06/17 Quetiapine Fumarate [Seroquel] 300 mg PO HS 04/06/17 07/11/17 04/05/17 risperiDONE [RisperDAL] 4 mg PO BID 04/06/17 07/11/17 04/06/17 Oxycodone HCl [Roxicodone] 30 mg PO TID 07/11/17 07/11/17 Unknown Previous Rx's Medication Instructions Recorded Last Taken Type Clopidogrel [Plavix] 75 mg PO QDAY #30 tablet 02/17/17 04/05/17 Rx Simvastatin [Zocor TAB] 40 mg PO QHS tablet 04/09/17 Unknown Rx lamoTRIgine [LaMICtal] 150 mg PO BID #60 tablet 04/09/17 Unknown Rx levETIRAcetam [Keppra TAB] 500 mg PO BID tablet 07/14/17 Unknown Rx Allergies Allergy/AdvReac Type Severity Reaction Status Date / Time atorvastatin calcium Allergy Unknown Verified 09/14/13 17:47 [From Lipitor] aspirin AdvReac Unknown Verified 02/26/14 13:53 ED Review of Systems ROS: Stated complaint: CP Other details as noted in HPI Comment: All other systems reviewed and negative Respiratory: denies: cough Cardiovascular: chest pain ED Past Medical Hx - Past Medical History Previous Medical History?: Yes Hx Hypertension: Yes Hx 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) Hx Heart Attack/AMI: Yes Hx Congestive Heart Failure: Yes (11/2014) Hx Diabetes: No Hx GERD: Yes Hx Seizures: Yes Hx Asthma: No Hx COPD: No Additional medical history: Cardiac arrest 4-5 times during surgery 2006, TIA's , Ca L knee,Irregular heart beat, Lupus - Surgical History Past Surgical History?: Yes Additional Surgical History: 30 surgeries to left lower extremity, hysterectomy, CS - Social History Smoking Status: Current Every Day Smoker Substance Use Type: None - Medications Home Medications: Home Medications Medication Instructions Recorded Confirmed Last Taken Type Clopidogrel [Plavix] 75 mg PO QDAY #30 tablet 02/17/17 07/11/17 04/05/17 Rx ALPRAZolam [Xanax TAB] 1 mg PO QID PRN 04/06/17 07/11/17 04/06/17 History Hydrochlorothiazide [HCTZ] 25 mg PO QDAY 04/06/17 07/11/17 04/06/17 History Potassium Chloride [K-Dur] 10 meq PO BID 04/06/17 07/11/17 04/06/17 History Pregabalin [Lyrica] 75 mg PO BID 04/06/17 07/11/17 04/06/17 History Quetiapine Fumarate [Seroquel] 300 mg PO HS 04/06/17 07/11/17 04/05/17 History risperiDONE [RisperDAL] 4 mg PO BID 04/06/17 07/11/17 04/06/17 History Simvastatin [Zocor TAB] 40 mg PO QHS tablet 04/09/17 07/11/17 Unknown Rx lamoTRIgine [LaMICtal] 150 mg PO BID #60 tablet 04/09/17 07/11/17 Unknown Rx Oxycodone HCl [Roxicodone] 30 mg PO TID 07/11/17 07/11/17 Unknown History levETIRAcetam [Keppra TAB] 500 mg PO BID tablet 07/14/17 Unknown Rx ED Physical Exam - General Limitations: No Limitations General appearance: alert, in no apparent distress, other (appears well, appears comfortable) - Head Head exam: Present: atraumatic, normocephalic - Eye Eye exam: Present: normal appearance - ENT ENT exam: Present: mucous membranes moist - Neck Neck exam: Present: normal inspection - Respiratory Respiratory exam: Present: normal lung sounds bilaterally. Absent: respiratory distress, wheezes, rales, rhonchi - Cardiovascular Cardiovascular Exam: Present: regular rate, normal rhythm, normal heart sounds. Absent: systolic murmur, diastolic murmur, rubs, gallop - GI/Abdominal GI/Abdominal exam: Present: soft, normal bowel sounds. Absent: distended, tenderness, guarding, rebound - Extremities Exam Extremities exam: Present: normal inspection, other (no edema, shortened left lower extremity with knee surgical scar) - Back Exam Back exam: Present: normal inspection - Neurological Exam Neurological exam: Present: alert, oriented X3 - Psychiatric Psychiatric exam: Present: normal affect, normal mood - Skin Skin exam: Present: warm, dry, intact, normal color. Absent: rash ED Course Vital Signs 10/25/17 22:13 Temperature 98.4 F Pulse Rate 79 Respiratory 17 Rate Blood Pressure 154/85 O2 Sat by Pulse 96 Oximetry ED Medical Decision Making - Lab Data Result diagrams: 10/25/17 22:19 10/25/17 22:19 Laboratory Results - last 24 hr 10/25/17 10/25/17 10/26/17 22:19 22:19 00:53 WBC 12.3 H RBC 4.60 Hgb 12.9 Hct 38.9 MCV 85 MCH 28 MCHC 33 RDW 16.7 H Plt Count 237 Lymph % (Auto) 16.1 [place] % (Auto) 4.6 Eos % (Auto) 4.9 H Baso % (Auto) 0.3 Lymph # 2.0 [place] # 0.6 Eos # 0.6 H Baso # 0.0 Seg Neutrophils % 74.1 H Seg Neutrophils # 9.1 H Sodium 145 Potassium 3.7 Chloride 106.0 Carbon Dioxide 26 Anion Gap 17 BUN 14 Creatinine 0.7 Estimated GFR > 60 BUN/Creatinine Ratio 20 Glucose 143 H Calcium 9.2 Troponin T < 0.010 < 0.010 Vital Signs - 24 hr 10/25/17 22:13 Temperature 98.4 F Pulse Rate 79 Respiratory 17 Rate Blood Pressure 154/85 O2 Sat by Pulse 96 Oximetry - Medical Decision Making Ms. Brunner presents with atypical chest pain. Musculoskeletal likely. Bilateral leg tenderness likely mild withdrawal from lyrica dc'd home with assurance. Critical care attestation.: If time is entered above; I have spent that time in minutes in the direct care of this critically ill patient, excluding procedure time. ED Disposition Clinical Impression: Chest pain, Leg pain, anterior Disposition: DC-01 TO HOME OR SELFCARE Is pt being admited?: No Does the pt Need Aspirin: No Condition: Stable Instructions: Chest Pain (ED) Time of Disposition: 01:57
[2017-10-26 02:08] VITALS: BP 130/71
== END 2017-10-26 02:08 | disposition home or self-care (01) ==
LOC: ED 21:21
DX: M79.605 Pain in left leg (principal); M79.604 Pain in right leg; R07.9 Chest pain, unspecified; I10 Essential (primary) hypertension; I25.2 Old myocardial infarction; K21.9 Gastro-esophageal reflux disease without esophagitis; F17.200 Nicotine dependence, unspecified, uncomplicated
CPT/HCPCS: 36415; 80048; 84484; 85025; 93005; 93010

== ENCOUNTER 2017-11-29 22:57 | Emergency (ER) | payer MEDICAID ==
[2017-11-29] MEDS ORDERED: BENADRYL IM ONE (23:40)
[2017-11-29] MEDS ORDERED: KEPPRA PO ONE (23:40)
--- NOTE | 2017-11-29 23:44 | Emergency Department Report ---
ED Seizure HPI - General Chief Complaint: Seizure Stated Complaint: SEIZURES Time Seen by Provider: 11/29/17 23:25 Source: EMS Mode of arrival: Stretcher Limitations: No Limitations - History of Present Illness Initial Comments: Patient is 52 years old female history of seizure. Patient brought by EMS stated that family witnessed the seizures today. No seizure witnessed by EMS or in the ER patient is doing some jerking movement and twitching but no full- blown seizure. No injury. MD Complaint: seizure, possible seizure Seizure History: known seizure disorder Place: home Possible Precipitating Event: none - Related Data Home Medications Medication Instructions Recorded Confirmed Last Taken ALPRAZolam [Xanax TAB] 1 mg PO QID PRN 04/06/17 07/11/17 04/06/17 Hydrochlorothiazide [HCTZ] 25 mg PO QDAY 04/06/17 07/11/17 04/06/17 Potassium Chloride [K-Dur] 10 meq PO BID 04/06/17 07/11/17 04/06/17 Pregabalin [Lyrica] 75 mg PO BID 04/06/17 07/11/17 04/06/17 Quetiapine Fumarate [Seroquel] 300 mg PO HS 04/06/17 07/11/17 04/05/17 risperiDONE [RisperDAL] 4 mg PO BID 04/06/17 07/11/17 04/06/17 Oxycodone HCl [Roxicodone] 30 mg PO TID 07/11/17 07/11/17 Unknown Previous Rx's Medication Instructions Recorded Last Taken Type Clopidogrel [Plavix] 75 mg PO QDAY #30 tablet 02/17/17 04/05/17 Rx Simvastatin [Zocor TAB] 40 mg PO QHS tablet 04/09/17 Unknown Rx lamoTRIgine [LaMICtal] 150 mg PO BID #60 tablet 04/09/17 Unknown Rx levETIRAcetam [Keppra TAB] 500 mg PO BID tablet 07/14/17 Unknown Rx Allergies Allergy/AdvReac Type Severity Reaction Status Date / Time atorvastatin calcium Allergy Unknown Verified 09/14/13 17:47 [From Lipitor] aspirin AdvReac Unknown Verified 02/26/14 13:53 ED Review of Systems ROS: Stated complaint: SEIZURES Other details as noted in HPI Comment: All other systems reviewed and negative Constitutional: denies: chills, fever Respiratory: denies: cough, shortness of breath, SOB with exertion Cardiovascular: denies: chest pain Gastrointestinal: denies: abdominal pain, nausea, vomiting Neurological: denies: headache, weakness ED Past Medical Hx - Past Medical History Previous Medical History?: Yes Hx Hypertension: Yes Hx 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) Hx Heart Attack/AMI: Yes Hx Congestive Heart Failure: Yes (11/2014) Hx Diabetes: No Hx GERD: Yes Hx Seizures: Yes Hx Asthma: No Hx COPD: No Additional medical history: Cardiac arrest 4-5 times during surgery 2006, TIA's , Ca L knee,Irregular heart beat, Lupus - Surgical History Past Surgical History?: Yes Additional Surgical History: 30 surgeries to left lower extremity, hysterectomy, CS - Social History Smoking Status: Current Every Day Smoker Substance Use Type: None - Medications Home Medications: Home Medications Medication Instructions Recorded Confirmed Last Taken Type Clopidogrel [Plavix] 75 mg PO QDAY #30 tablet 02/17/17 07/11/17 04/05/17 Rx ALPRAZolam [Xanax TAB] 1 mg PO QID PRN 04/06/17 07/11/17 04/06/17 History Hydrochlorothiazide [HCTZ] 25 mg PO QDAY 04/06/17 07/11/17 04/06/17 History Potassium Chloride [K-Dur] 10 meq PO BID 04/06/17 07/11/17 04/06/17 History Pregabalin [Lyrica] 75 mg PO BID 04/06/17 07/11/17 04/06/17 History Quetiapine Fumarate [Seroquel] 300 mg PO HS 04/06/17 07/11/17 04/05/17 History risperiDONE [RisperDAL] 4 mg PO BID 04/06/17 07/11/17 04/06/17 History Simvastatin [Zocor TAB] 40 mg PO QHS tablet 04/09/17 07/11/17 Unknown Rx lamoTRIgine [LaMICtal] 150 mg PO BID #60 tablet 04/09/17 07/11/17 Unknown Rx Oxycodone HCl [Roxicodone] 30 mg PO TID 07/11/17 07/11/17 Unknown History levETIRAcetam [Keppra TAB] 500 mg PO BID tablet 07/14/17 Unknown Rx ED Physical Exam - General Limitations: No Limitations General appearance: alert, in no apparent distress - Head Head exam: Present: atraumatic, normocephalic, normal inspection - Eye Eye exam: Present: normal appearance - ENT ENT exam: Present: normal exam, normal orophraynx, mucous membranes moist - Neck Neck exam: Present: normal inspection, full ROM. Absent: tenderness, meningismus - Respiratory Respiratory exam: Present: normal lung sounds bilaterally. Absent: respiratory distress, wheezes, rales, rhonchi, stridor, accessory muscle use, decreased breath sounds, prolonged expiratory - Cardiovascular Cardiovascular Exam: Present: regular rate, normal rhythm, normal heart sounds - GI/Abdominal GI/Abdominal exam: Present: soft, normal bowel sounds. Absent: distended, tenderness, guarding, rebound, rigid, organomegaly, mass, bruit - Extremities Exam Extremities exam: Present: normal inspection, full ROM, normal capillary refill - Back Exam Back exam: Present: normal inspection, full ROM. Absent: CVA tenderness (L) - Neurological Exam Neurological exam: Present: alert, oriented X3, CN II-XII intact - Skin Skin exam: Present: warm, intact, normal color ED Course Vital Signs 11/29/17 11/29/17 11/29/17 23:00 23:24 23:25 Temperature 98.9 F 98.6 F Pulse Rate 83 81 Respiratory 20 20 Rate Blood Pressure 118/89 Blood Pressure 118/99 [Left] O2 Sat by Pulse 100 99 100 Oximetry - Reevaluation(s) Reevaluation #1: 11/30/17 04:55 Patient observed in the ER, no seizure activity observed. Patient is alert and oriented 3. She stated that she is not very compliant with her Keppra because it make sleepy. I discussed with the needs to take her seizure medication. Patient stated that she'll follow with her neurologist in the next 2-3 days. ED Medical Decision Making - Lab Data Result diagrams: 11/29/17 23:23 11/29/17 23:23 Critical care attestation.: If time is entered above; I have spent that time in minutes in the direct care of this critically ill patient, excluding procedure time. ED Disposition Clinical Impression: Seizure Disposition: DC-01 TO HOME OR SELFCARE Is pt being admited?: No Condition: Stable Instructions: Recurrent Seizures Adult (ED)
[2017-11-29 23:46] LABS: Hematocrit 40.4 % (30.3-42.9); Hemoglobin 13.2 gm/dl (10.1-14.3); Mean Corpuscular HGB Conc 33 % (30-34); Mean Corpuscular Hemoglobin 28 pg (28-32); Mean Corpuscular Volume 85 fl (79-97); Platelet Count 234 K/mm3 (140-440); Red Blood Count 4.78 M/mm3 (3.65-5.03); Red Cell Distribution Width 15.8 % (13.2-15.2)
[2017-11-29 23:58] LABS: Calcium 9.2 mg/dL (8.4-10.2)
[2017-11-30 01:00] LABS: Amphetamine Screen,Urine PRESUMPTIVE NEGATIVE; Benzodiazepines Screen,Urine PRESUMPTIVE NEGATIVE; Cannabinoid Screen,Urine PRESUMPTIVE NEGATIVE; Cocaine Screen,Urine PRESUMPTIVE NEGATIVE; Methadone Screen,Urine PRESUMPTIVE NEGATIVE; Opiate Screen,Urine PRESUMPTIVE NEGATIVE
[2017-11-30 05:25] VITALS: BP 130/94
== END 2017-11-30 05:38 | disposition home or self-care (01) ==
LOC: ED 22:57
DX: G40.909 Epilepsy, unspecified, not intractable, without status epilepticus (principal); I10 Essential (primary) hypertension; K21.9 Gastro-esophageal reflux disease without esophagitis; F17.200 Nicotine dependence, unspecified, uncomplicated
CPT/HCPCS: 36415; 80048; 80307; 85027; 96372; 99284; J1200

== ENCOUNTER 2019-03-10 20:49 | Outpatient (CLI) | payer MEDICAID ==
--- NOTE | 2019-03-10 21:33 | XRay Report ---
Bilateral knees, 6 views INDICATION: Chronic knee pain FINDINGS: There has been arthrodesis of the left knee joint with bony union identified and postoperat rocío changes with cerclage wires around the distal femur and proximal tibia. There is no fracture or e vidence of osteomyelitis of the left knee. The right knee shows slight narrowing of the medial compar tment with lateral compartment intact. Medial spurring is seen as well as patellofemoral spurring. Th ere is no fracture or joint effusion on the right and no acute abnormality of either knee seen. Signer Name: Kaushal Washington MD Signed: 03/10/2019 9:29 PM Workstation Name: [id number]
== END 2019-03-10 20:50 | disposition home or self-care (01) ==
LOC: XRAY 20:49 → EDSTATUS 20:50 → XRAY 20:50
PROVIDERS: ATTEND Internal Medicine Cardiovascular Disease
DX: M76.892 Other specified enthesopathies of left lower limb, excluding foot (principal); M76.891 Other specified enthesopathies of right lower limb, excluding foot; E78.00 Pure hypercholesterolemia, unspecified; I10 Essential (primary) hypertension; K21.9 Gastro-esophageal reflux disease without esophagitis

== ENCOUNTER 2019-05-14 10:41 | Emergency (ER) | payer MEDICAID ==
[2019-05-14] MEDS ORDERED: LORazepam 2 MG/ML VIAL ONE (11:08)
--- NOTE | 2019-05-14 11:09 | Consultation ---
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 Metrics: Last Known Well: 05/14/2019 10:15:00 [facility] Notification Time: 05/14/2019 10:37:30 Arrival Time: 05/14/2019 10:41:20 Stamp Time: 05/14/2019 10:38:15 Time First Login Attempt: 05/14/2019 10:40:39 Video Start Time: 05/14/2019 10:40:39 Symptoms: slurred speech and left sided weakness NIHSS Start Assessment Time: 05/14/2019 11:00:02 Patient is not a candidate for tPA. Patient was not deemed candidate for tPA thrombolytics because of Seizure with Todds paralysis. Video End Time: 05/14/2019 11:04:37 CT head showed no acute hemorrhage or acute core infarct. Advanced imaging CTA head and neck obtained. ER physician notified of the decision on thrombolytics management. Our recommendations are outlined below. Recommendations: Ativan 2mg now keppra 1 gm now then start 500 mg BID Seizure precautions. Recommended Scan: MRI Head Without Contrast Dysphaghia Screen: Swallow Evaluation, Bedside DVT prophylaxis: Choice of Primary Team Disposition: Follow up with Teleneurology Follow up Sign Out: Discussed with Emergency Department Provider History of Present Illness: Patient is a 54 years old Female. Patient was brought by EMS for symptoms of slurred speech and left sided weakness 54 YO F with h/o seizures, CAD and TIAs presented with slurred speech and left sided weakness. she was at doctor's office when she had sudden onset of these symptoms. she is twitch on left side of her head and arm. she states that her usual seizures are focal on the left side. she was supposed to be on keppra but not taking it for a while now. she has multiple admissions in the past with similar complaints. CT head showed no acute hemorrhage or acute core infarct. Examination: 1A: Level of Consciousness - Alert; keenly responsive+ 0 1B: Ask Month and Age - Both Questions Right+ 0 1C: Blink Eyes & Squeeze Hands - Performs Both Tasks+ 0 2: Test Horizontal Extraocular Movements - Normal+ 0 3: Test Visual Mckeon - No Visual Loss+ 0 4: Test Facial Palsy (Use Grimace if Obtunded) - Minor paralysis (flat nasolabial fold, smile asymetry)+ 1 5A: Test Left Arm Motor Drift - Some Effort Against [place]+ 2 5B: Test Right Arm Motor Drift - No Drift for 10 Seconds+ 0 6A: Test Left Leg Motor Drift - Some Effort Against [place]+ 2 6B: Test Right Leg Motor Drift - No Drift for 5 Seconds+ 0 7: Test Limb Ataxia (FNF/Heel-Chambers) - No Ataxia+ 0 8: Test Sensation - Normal; No sensory loss+ 0 9: Test Language/Aphasia - Normal; No aphasia+ 0 10: Test Dysarthria - Mild-Moderate Dysarthria: Slurring but can be understood+ 1 11: Test Extinction/Inattention - No abnormality+ 0 NIHSS Score:6 Patient was informed the Neurology Consult would happen via TeleHealth consult by way of interactive audio and video telecommunications and consented to receiving care in this manner. Due to the immediate potential for life-threatening deterioration due to underlying acute neurologic illness, I spent 35 minutes providing critical care. This time includes time for face to face visit via telemedicine, review of medical records, imaging studies and discussion of findings with providers, the patient and/or family. Dr Peter Cortez [facility] Medications and Allergies Allergies Allergy/AdvReac Type Severity Reaction Status Date / Time atorvastatin calcium Allergy Unknown Verified 05/14/19 10:50 [From Lipitor] aspirin AdvReac Unknown Verified 05/14/19 10:50 Home Medications Medication Instructions Recorded Confirmed Last Taken Type Clopidogrel [Plavix] 75 mg PO QDAY #30 tablet 02/17/17 07/11/17 04/05/17 Rx ALPRAZolam [Xanax TAB] 1 mg PO QID PRN 04/06/17 07/11/17 04/06/17 History Potassium Chloride [K-Dur] 10 meq PO BID 04/06/17 07/11/17 04/06/17 History Pregabalin 75 mg PO BID 04/06/17 07/11/17 04/06/17 History Quetiapine Fumarate [Seroquel] 300 mg PO HS 04/06/17 07/11/17 04/05/17 History hydroCHLOROthiazide [HCTZ] 25 mg PO QDAY 04/06/17 07/11/17 04/06/17 History risperiDONE [RisperDAL] 4 mg PO BID 04/06/17 07/11/17 04/06/17 History Simvastatin [Zocor TAB] 40 mg PO QHS tablet 04/09/17 07/11/17 Unknown Rx lamoTRIgine [LaMICtal] 150 mg PO BID #60 tablet 04/09/17 07/11/17 Unknown Rx Oxycodone HCl [roxiCODONE] 30 mg PO TID 07/11/17 07/11/17 Unknown History levETIRAcetam [Keppra TAB] 500 mg PO BID tablet 07/14/17 Unknown Rx
[2019-05-14] MEDS ORDERED: levETIRAcetam 1000 MG/NS 0.75% 1,000 MG/100 ML BAG IV ONE ×2 (11:11→11:12)
[2019-05-14] MEDS ORDERED: LORazepam 2 MG/ML VIAL IV NR ×2 (11:15)
[2019-05-14 11:17] LABS: Basophils # (Auto) 0.1 K/mm3 (0.0-0.1); Basophils % (Auto) 0.6 % (0.0-1.8); Eosinophils # (Auto) 0.6 K/mm3 (0.0-0.4); Eosinophils % (Auto) 4.6 % (0.0-4.3); Hematocrit 41.7 % (30.3-42.9); Lymphocytes % (Auto) 23.1 % (13.4-35.0); Mean Corpuscular HGB Conc 34 % (30-34); Mean Corpuscular Volume 86 fl (79-97); Monocytes # (Auto) 0.6 K/mm3 (0.0-0.8); Monocytes % (Auto) 4.9 % (0.0-7.3); Platelet Count 240 K/mm3 (140-440); Red Blood Count 4.86 M/mm3 (3.65-5.03); Red Cell Distribution Width 14.7 % (13.2-15.2)
[2019-05-14 11:29] LABS: INR 0.93 (0.87-1.13)
[2019-05-14 11:30] LABS: Partial Thromboplastin Time 29.2 Sec. (24.2-36.6); Thrombin Time 15.2 Sec. (15.1-19.6)
[2019-05-14 11:32] LABS: BUN/Creatinine Ratio 23; Blood Urea Nitrogen 18 mg/dL (7-17); Calcium 10.3 mg/dL (8.4-10.2); Hemolysis Index 0
--- NOTE | 2019-05-14 11:36 | Cat Scan Report ---
CT HEAD WITHOUT CONTRAST INDICATION / CLINICAL INFORMATION: neuro deficits <6hrs or sx present upon awakening. Code stroke. TECHNIQUE: Axial imaging performed from the skull apex through the skull base without the use of cont rast. Sagittal and coronal reformatted images. All CT scans at this location are performed using CT dose reduction for ALARA by means of automated exposure control. COMPARISON: 09/29/2017 FINDINGS: CEREBRAL PARENCHYMA: No significant abnormality. No acute territorial infarct. HEMORRHAGE: None. EXTRA-AXIAL SPACES: Normal in size and morphology for the patient's age. VENTRICULAR SYSTEM: Normal in size and morphology for the patient's age. MIDLINE SHIFT OR HERNIATION: None. CEREBELLUM / BRAINSTEM: No significant abnormality. CALVARIUM: No significant abnormality. ORBITS: Normal as visualized. PARANASAL SINUSES / MASTOID AIR CELLS: Normal as visualized. SOFT TISSUES of HEAD: No significant abnormality. ADDITIONAL FINDINGS: None. IMPRESSION: No acute intracranial abnormality. These findings were discussed with Dr. Riley in the emergency department at 1125 hours EST. Signer Name: Jed Rivera Jr, MD Signed: 05/14/2019 11:32 AM Workstation Name: [id number]
--- NOTE | 2019-05-14 12:06 | Emergency Department Report ---
<CHERY LANTIGUA III - Last Filed: 05/14/19 17:01> ED Neuro Deficit HPI - General Chief Complaint: Neuro Symptoms/Deficit Stated Complaint: NEURO ISSUES Time Seen by Provider: 05/14/19 10:44 - Related Data Home Medications: Home Medications Medication Instructions Recorded Confirmed Last Taken ALPRAZolam [Xanax TAB] 1 mg PO QID PRN 04/06/17 05/14/19 05/12/19 Potassium Chloride [K-Dur] 10 meq PO BID 04/06/17 05/14/19 05/14/19 Pregabalin 75 mg PO BID 04/06/17 05/14/19 05/12/19 hydroCHLOROthiazide [HCTZ] 25 mg PO QDAY 04/06/17 05/14/19 05/14/19 Oxycodone HCl [roxiCODONE] 30 mg PO TID 07/11/17 05/14/19 05/14/19 Previous Rx's Medication Instructions Recorded Last Taken Type Clopidogrel [Plavix] 75 mg PO QDAY #30 tablet 02/17/17 05/14/19 Rx levETIRAcetam [Keppra TAB] 500 mg PO BID #60 tablet 05/14/19 Unknown Rx Allergies/Adverse Reactions: Allergies Allergy/AdvReac Type Severity Reaction Status Date / Time atorvastatin calcium Allergy Unknown Verified 05/14/19 10:50 [From Lipitor] aspirin AdvReac Unknown Verified 05/14/19 10:50 ED Past Medical Hx - Medications Home Medications: Home Medications Medication Instructions Recorded Confirmed Last Taken Type Clopidogrel [Plavix] 75 mg PO QDAY #30 tablet 02/17/17 05/14/19 05/14/19 Rx ALPRAZolam [Xanax TAB] 1 mg PO QID PRN 04/06/17 05/14/19 05/12/19 History Potassium Chloride [K-Dur] 10 meq PO BID 04/06/17 05/14/19 05/14/19 History Pregabalin 75 mg PO BID 04/06/17 05/14/19 05/12/19 History hydroCHLOROthiazide [HCTZ] 25 mg PO QDAY 04/06/17 05/14/19 05/14/19 History Oxycodone HCl [roxiCODONE] 30 mg PO TID 07/11/17 05/14/19 05/14/19 History levETIRAcetam [Keppra TAB] 500 mg PO BID #60 tablet 05/14/19 Unknown Rx ED Course - Reevaluation(s) Reevaluation #3: I reviewed all results with patient. Patient's CT head and neck are negative for acute finding and occlusive disease. Patient stable for discharge. I will activate Dr. Riley's discharge planning 05/14/19 17:00 - Lab Data Result diagrams: 05/14/19 11:08 05/14/19 11:08 ED Disposition Clinical Impression: Focal seizure, History of CVA with residual deficit, Noncompliance with medication regimen Disposition: DC-01 TO HOME OR SELFCARE Is pt being admited?: No Does the pt Need Aspirin: No Condition: Stable Instructions: Recurrent Seizures Adult (ED) Additional Instructions: Take the medication as prescribed. Follow-up with your doctor or with the doctor/clinic provided. Return if symptoms worsen as indicated by your discharge instructions. 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 Patient was at the doctor's office "across the street" when she began to have difficulty speaking and left-sided weakness.: Stroke was initiated and patient was seen by neurology as well as myself. Patient has a history of similar presentations in the past due to either TIAs or seizures. Symptoms onset about 10:05 AM. Patient has a history of seizures and states she has been noncompliant with her seizure medication because Keppra makes her sleepy. Last seizure was last week. ED Review of Systems ROS: Stated complaint: NEURO ISSUES Other details as noted in HPI Comment: All other systems reviewed and negative ED Past Medical Hx - Past Medical History Previous Medical History?: Yes Hx Hypertension: Yes Hx 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) Hx Heart Attack/AMI: Yes Hx Congestive Heart Failure: Yes (11/2014) Hx Diabetes: No Hx GERD: Yes Hx Seizures: Yes Hx Asthma: No Hx COPD: No Additional medical history: Cardiac arrest 4-5 times during surgery 2006, TIA's, Ca L knee,Irregular heart beat, Lupus - Surgical History Past Surgical History?: Yes Additional Surgical History: 30 surgeries to left lower extremity, hyst erectomy,CS - Social History Smoking Status: Never Smoker Substance Use Type: Alcohol ED Neuro Physical Exam - General Limitations: Altered Mental Status Suspected Stroke: Yes - Neurological Exam Neurological exam: Present: alert - NIHSS Assessment Interval: Baseline 1a. Level of Consciousness: alert/keenly responsive 1b. LOC Questions: answers both correctly 1c. LOC Commands: performs tasks correctly 2. Best Gaze: normal 3. Visual: no visual loss 4. Facial Palsy: minor paralysis 5b. Motor Arm Right: some gravity effort 5a. Motor Arm Left: some gravity effort 6a. Motor Leg Left: no drift 6b. Motor Leg Right: no drift 7. Limb Ataxia: absent 8. Sensory: normal 9. Best Language: no aphasia 10. Dysarthria: mild/moderate dysarthria 11. Extinction/Inattention: no abnormality Total Score: 6 Stroke Severity: Moderate Stroke - Other Other exam information: Gen.: No acute distress Head: Atraumatic Eyes: Normal appearance ENT: Moist mucous membranes Neck: Normal appearance, no posterior midline tenderness, no meningismus Chest: Clear to auscultation bilaterally Cardiovascular: Regular rate and rhythm Abdomen: Normal appearance, soft, nontender, no rebound or guarding, normal bowel sounds Back: Normal appearance, nontender Extremity: Left anterior knee surgical scar noted. Patient is unable to flex secondary to pain Neuro: Patient is alert and appears to be having spasms of her left face, left arm with intermittent twitching of the left head with possible focal seizure activity. Seat and a stroke exam Psychiatric: Appropriate Skin: No rash ED Course Vital Signs 05/14/19 05/14/19 05/14/19 11:20 11:30 11:41 Temperature 97.6 F 97.6 F Pulse Rate 84 84 Respiratory 13 21 13 Rate Blood Pressure 149/74 161/102 Blood Pressure 161/102 [Left] O2 Sat by Pulse 99 96 99 Oximetry 05/14/19 05/14/19 05/14/19 11:46 12:00 13:00 Temperature Pulse Rate 72 69 65 Respiratory 19 13 14 Rate Blood Pressure 149/74 150/89 147/81 Blood Pressure [Left] O2 Sat by Pulse 100 100 100 Oximetry 05/14/19 05/14/19 05/14/19 13:30 14:00 14:30 Temperature Pulse Rate 62 58 L 67 Respiratory 18 17 15 Rate Blood Pressure 156/89 161/88 161/88 Blood Pressure [Left] O2 Sat by Pulse 95 100 100 Oximetry 05/14/19 05/14/19 05/14/19 15:04 15:34 16:00 Temperature Pulse Rate 74 70 57 L Respiratory 13 15 18 Rate Blood Pressure 161/88 141/68 136/64 Blood Pressure [Left] O2 Sat by Pulse Oximetry 05/14/19 05/14/19 05/14/19 16:16 16:30 16:46 Temperature Pulse Rate 59 L 61 54 L Respiratory 17 13 18 Rate Blood Pressure 182/92 189/92 189/92 Blood Pressure [Left] O2 Sat by Pulse Oximetry 05/14/19 05/14/19 05/14/19 17:00 17:16 17:17 Temperature Pulse Rate 58 L 63 61 Respiratory 16 22 15 Rate Blood Pressure 183/97 183/97 Blood Pressure 135/80 [Left] O2 Sat by Pulse 100 Oximetry - Reevaluation(s) Reevaluation #1: 05/14/19 13:54 Shortly after arrival and during neurology assessment patient was noted to have twitching activity of the left side of her face and left arm. Patient deemed not a TPA candidate at that time due to suspected seizures. Patient given Keppra and Ativan 2 mg IV. We attempted to get a CT angiogram several hours ago however, patient complained of pain and inability to lie flat. Patient was also noticed intermittently arguing with her family members and lifting her left arm during argument. Pt received dialudid and zofran. Will reattempt ct when available again 05/14/19 15:11 pt at her baseline. no longer with facial and arm spasms. 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 Pt is adamant about not taking her seizure medication. Pt will still obtain ct angio head and neck. if neg she will be discharged. Reevaluation #2: 05/14/19 15:24 pt will be signed out to Dr cornejo to f/u ct result and d/c home if neg with scripts. - Lab Data Result diagrams: 05/14/19 11:08 05/14/19 11:08 Lab Results 05/14/19 05/14/19 05/14/19 Range/Units 11:08 11:08 11:08 WBC 12.7 H (4.5-11.0) K/mm3 RBC 4.86 (3.65-5.03) M/mm3 Hgb 14.0 (10.1-14.3) gm/dl Hct 41.7 (30.3-42.9) % MCV 86 (79-97) fl MCH 29 (28-32) pg MCHC 34 (30-34) % RDW 14.7 (13.2-15.2) % Plt Count 240 (140-440) K/mm3 Lymph % (Auto) 23.1 (13.4-35.0) % [place] % (Auto) 4.9 (0.0-7.3) % Eos % (Auto) 4.6 H (0.0-4.3) % Baso % (Auto) 0.6 (0.0-1.8) % Lymph # 3.0 (1.2-5.4) K/mm3 [place] # 0.6 (0.0-0.8) K/mm3 Eos # 0.6 H (0.0-0.4) K/mm3 Baso # 0.1 (0.0-0.1) K/mm3 Seg Neutrophils % 66.8 (40.0-70.0) % Seg Neutrophils # 8.5 H (1.8-7.7) K/mm3 PT 12.2 (12.2-14.9) Sec. INR 0.93 (0.87-1.13) APTT 29.2 (24.2-36.6) Sec. Thrombin Time 15.2 (15.1-19.6) Sec. Sodium 137 (137-145) mmol/L Potassium 3.4 L (3.6-5.0) mmol/L Chloride 93.7 L (98-107) mmol/L Carbon Dioxide 27 (22-30) mmol/L Anion Gap 20 mmol/L BUN 18 H (7-17) mg/dL Creatinine 0.8 (0.7-1.2) mg/dL Estimated GFR > 60 ml/min BUN/Creatinine Ratio 23 % Glucose 175 H (65-100) mg/dL Calcium 10.3 H (8.4-10.2) mg/dL Magnesium (1.7-2.3) mg/dL Total Creatine Kinase (30-135) units/L Troponin T < 0.010 (0.00-0.029) ng/mL Urine Opiates Screen Urine Methadone Screen Ur Barbiturates Screen Ur Phencyclidine Scrn Ur Amphetamines Screen U Benzodiazepines Scrn Urine Cocaine Screen U Marijuana (THC) Screen Drugs of Abuse Note 05/14/19 05/14/19 05/14/19 Range/Units 13:08 Unknown Unknown WBC (4.5-11.0) K/mm3 RBC (3.65-5.03) M/mm3 Hgb (10.1-14.3) gm/dl Hct (30.3-42.9) % MCV (79-97) fl MCH (28-32) pg MCHC (30-34) % RDW (13.2-15.2) % Plt Count (140-440) K/mm3 Lymph % (Auto) (13.4-35.0) % [place] % (Auto) (0.0-7.3) % Eos % (Auto) (0.0-4.3) % Baso % (Auto) (0.0-1.8) % Lymph # (1.2-5.4) K/mm3 [place] # (0.0-0.8) K/mm3 Eos # (0.0-0.4) K/mm3 Baso # (0.0-0.1) K/mm3 Seg Neutrophils % (40.0-70.0) % Seg Neutrophils # (1.8-7.7) K/mm3 PT (12.2-14.9) Sec. INR (0.87-1.13) APTT (24.2-36.6) Sec. Thrombin Time (15.1-19.6) Sec. Sodium (137-145) mmol/L Potassium (3.6-5.0) mmol/L Chloride (98-107) mmol/L Carbon Dioxide (22-30) mmol/L Anion Gap mmol/L BUN (7-17) mg/dL Creatinine (0.7-1.2) mg/dL Estimated GFR ml/min BUN/Creatinine Ratio % Glucose (65-100) mg/dL Calcium (8.4-10.2) mg/dL Magnesium 1.90 (1.7-2.3) mg/dL Total Creatine Kinase 390 H (30-135) units/L Troponin T (0.00-0.029) ng/mL Urine Opiates Screen Presumptive negative Urine Methadone Screen Presumptive negative Ur Barbiturates Screen Presumptive negative Ur Phencyclidine Scrn Presumptive negative Ur Amphetamines Screen Presumptive negative U Benzodiazepines Scrn Presumptive negative Urine Cocaine Screen Presumptive negative U Marijuana (THC) Screen Presumptive negative Drugs of Abuse Note Disclamer - EKG Data -: EKG Interpreted by Vt EKG shows normal: sinus rhythm, axis (qrs 2), ST-T waves Rate: normal (77) - Radiology Data Radiology results: report reviewed CT HEAD WITHOUT CONTRAST INDICATION / CLINICAL INFORMATION: neuro deficits <6hrs or sx present upon awakening. Code stroke. TECHNIQUE: Axial imaging performed from the skull apex through the skull base without the use of contrast. Sagittal and coronal reformatted images. All CT scans at this location are performed using CT dose reduction for Ultralife by means of automated exposure control. COMPARISON: 09/29/2017 FINDINGS: CEREBRAL PARENCHYMA: No significant abnormality. No acute territorial infarct. HEMORRHAGE: None. EXTRA-AXIAL SPACES: Normal in size and morphology for the patient's age. VENTRICULAR SYSTEM: Normal in size and morphology for the patient's age. MIDLINE SHIFT OR HERNIATION: None. CEREBELLUM / BRAINSTEM: No significant abnormality. CALVARIUM: No significant abnormality. ORBITS: Normal as visualized. PARANASAL SINUSES / MASTOID AIR CELLS: Normal as visualized. SOFT TISSUES of HEAD: No significant abnormality. ADDITIONAL FINDINGS: None. IMPRESSION: No acute intracranial abnormality. CTA HEAD AND NECK WITH CONTRAST HISTORY: Left-sided weakness. COMPARISON: Prior head CT done earlier on 05/14/2019. Previous brain MRI and MRA on 07/12/2017. TECHNIQUE: All CT scans at this location are performed using CT dose reduction for Ultralife by means of automated exposure control.. 3-D/MIP reformats postprocessed. Percentage stenosis is determined by direct quantitative measurements of diseased internal carotid artery diameter compared with normal distal internal carotid artery reference segments or by criteria similar to NASCET where applicable. CONTRAST: 100 ml of Omnipaque 350 FINDINGS: CTA HEAD: Intracranial vertebral arteries: No significant abnormality. Basilar artery: No significant abnormality. Posterior cerebral arteries: No significant abnormality. Intracranial internal carotid arteries: There is mild atherosclerosis in the bilateral cavernous and supraclinoid internal carotid arteries without significant stenosis. 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 Remainder of the anterior cerebral arteries demonstrate no significant abnormality. Middle cerebral arteries: No significant abnormality. Dural venous sinuses:Not optimally opacified. No significant abnormality. CTA NECK: Aortic arch: No significant abnormality. Cervical vertebral arteries: No significant abnormality. Common carotid arteries: No significant abnormality. Cervical internal carotid arteries: There is mild atherosclerosis in the bilateral carotid bulbs without any significant stenosis. Additional findings: None. IMPRESSION: 1. No significant stenosis or large vessel occlusion of the cervical or antegrade vertebral arteries. 2. Mild atherosclerosis in the bilateral carotid bulbs and cavernous internal carotid arteries not resulting in any stenosis. - Medical Decision Making Patient was seen and evaluated by neurologist who recommended CTA and admission and workup. Patient treated in ED with Keppra and Ativan for suspected seizures however patient also has a history of TIAs. Possible psychiatric component pat ient also intermittent arguing with family members also passibility of Wil paralysis secondary to seizures and noncompliance of medications. Pt has a hx of chronic pain and possible conversion d/o as per previous record - Differential Diagnosis seizure, TIA, conversion disorder Critical Care Time: No Critical care attestation.: If time is entered above; I have spent that time in minutes in the direct care of this critically ill patient, excluding procedure time. ED Disposition Is pt being admited?: No
[2019-05-14] MEDS ORDERED: HYDROmorphone 1 MG/1 ML INJ IV ONE (12:46)
[2019-05-14] MEDS ORDERED: ONDANSETRON 4 MG/2 ML INJ IV ONE (12:46)
[2019-05-14 13:26] LABS: Amphetamine Screen,Urine PRESUMPTIVE NEGATIVE; Benzodiazepines Screen,Urine PRESUMPTIVE NEGATIVE; Cannabinoid Screen,Urine PRESUMPTIVE NEGATIVE; Cocaine Screen,Urine PRESUMPTIVE NEGATIVE; Methadone Screen,Urine PRESUMPTIVE NEGATIVE; Opiate Screen,Urine PRESUMPTIVE NEGATIVE
[2019-05-14] MEDS ORDERED: POTASSIUM CHLORIDE ER 20 MEQ TAB PO ONE (14:22)
--- NOTE | 2019-05-14 16:27 | Cat Scan Report ---
CTA HEAD AND NECK WITH CONTRAST HISTORY: Left-sided weakness. COMPARISON: Prior head CT done earlier on 05/14/2019. Previous brain MRI and MRA on 07/12/2017. TECHNIQUE: All CT scans at this location are performed using CT dose reduction for ALARA by means of automated exposure control.. 3-D/MIP reformats postprocessed. Percentage stenosis is determined by d irect quantitative measurements of diseased internal carotid artery diameter compared with normal dis andrés internal carotid artery reference segments or by criteria similar to NASCET where applicable. CONTRAST: 100 ml of Omnipaque 350 FINDINGS: CTA HEAD: Intracranial vertebral arteries: No significant abnormality. Basilar artery: No significant abnormality. Posterior cerebral arteries: No significant abnormality. Intracranial internal carotid arteries: There is mild atherosclerosis in the bilateral cavernous and supraclinoid internal carotid arteries without significant stenosis. 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 Remainder of th e anterior cerebral arteries demonstrate no significant abnormality. Middle cerebral arteries: No significant abnormality. Dural venous sinuses:Not optimally opacified. No significant abnormality. CTA NECK: Aortic arch: No significant abnormality. Cervical vertebral arteries: No significant abnormality. Common carotid arteries: No significant abnormality. Cervical internal carotid arteries: There is mild atherosclerosis in the bilateral carotid bulbs with out any significant stenosis. Additional findings: None. IMPRESSION: 1. No significant stenosis or large vessel occlusion of the cervical or antegrade vertebral arteries. 2. Mild atherosclerosis in the bilateral carotid bulbs and cavernous internal carotid arteries not re sulting in any stenosis. Signer Name: Audie Ervin MD Signed: 05/14/2019 4:23 PM Workstation Name: [id number]
[2019-05-14 17:40] VITALS: BP 135/80
== END 2019-05-14 17:17 | disposition home or self-care (01) ==
LOC: ED 10:41
DX: G40.211 Localization-related (focal) (partial) symptomatic epilepsy and epileptic syndromes with complex partial seizures, intractable, with status epilepticus (principal); Z91.14 Patient's other noncompliance with medication regimen; I11.0 Hypertensive heart disease with heart failure; I50.9 Heart failure, unspecified; M32.9 Systemic lupus erythematosus, unspecified; K21.9 Gastro-esophageal reflux disease without esophagitis; Z95.1 Presence of aortocoronary bypass graft; Z90.710 Acquired absence of both cervix and uterus; Z86.73 Personal history of transient ischemic attack (TIA), and cerebral infarction without residual deficits; Z88.6 Allergy status to analgesic agent; Z88.8 Allergy status to other drugs, medicaments and biological substances; Z79.899 Other long term (current) drug therapy
CPT/HCPCS: 36415; 70450; 70496; 70498; 80048; 80307; 82550; 82962; 83735; 84484; 85025; 85610; 85670; 85730; 93005; 93010; 96374; 96375; 99285; J1170; J1953; J2060; J2405; Q9967